=== PATIENT | male | born 1940 | race Caucasian/White ===

== ENCOUNTER 2023-07-28 12:18 | Inpatient (IN) ==
--- NOTE | 2023-07-28 12:45 | Emergency Department Note ---
Impression & Plan Generalized weakness, Acute urinary retention, Hydronephrosis, Hyperglycemia, Elevated serum creatinine, Bladder outlet obstruction ED Provider Note HISTORY OF PRESENT ILLNESS: Patient is an 83-year-old male presenting with hyperglycemia and feeling generally unwell. Patient reports that he went to acute care yesterday given his generalized weakness and polyuria. His glucose was over 300. He has been having frequent urination and feeling generally unwell and weak for the last week. He denies any chest pain or shortness of breath. Reports lower abdominal pain. Denies any nausea or vomiting or diarrhea. He used to be on metformin for his diabetes, but stopped taking all of his medications a year and a half ago. He denies any recent sick contact exposures or recent travel. Denies any fevers. Patient reports abdominal surgical history significant for cholecystectomy. ROS: as above PHYSICAL EXAM: Constitutional: Patient appears in no acute distress. HENT: Head: Normocephalic and atraumatic. Eyes: EOMI, PERRL Mouth/Throat: Mucous membranes moist. Neck: Trachea midline. Neck supple. Cardiovascular: RRR, No murmurs, rubs or gallops. Intact distal pulses. Pulmonary/Chest: No respiratory distress. Breath sounds clear and equal bilaterally. No wheezes or rales. Abdominal: Abdomen soft, no rebound or guarding. Lower abdominal tenderness to palpation. Musculoskeletal: No edema, tenderness or deformity noted. Skin: Warm and dry. No rash, erythema, pallor or cyanosis Psychiatric: Appropriate mood and affect for situation. Neurological: Alert and keenly responsive. CN II-XII grossly intact, moving all extremities equally and fully. MDM: - Vitals signs showed hypertension - History obtained via patient. Patient presents with hyperglycemia and feeling generally unwell. Patient went to acute care yesterday given his generalized weakness and polyuria. He was found of a glucose of over 300. He states he has been urinating frequently over the last week. He has also been feeling generally unwell and very weak. Denies any chest pain or shortness of breath. Reports lower abdominal pain. Denies any nausea or vomiting or diarrhea. She is not on any medications currently. Denies any fevers. Denies any recent sick contact exposures. - Chronic conditions affecting care: Diabetes - Differential diagnoses include, but are not limited to: DKA; UTI; pneumonia; viral syndrome; electrolyte abnormality - Order placed for continuous cardiac monitoring. At this time, monitor showed rate of 80 bpm with normal sinus rhythm, per my interpretation. - External medical records reviewed. [facility] [employer] and has not seen a doctor in a number of years. - EKG reviewed by myself showed normal sinus rhythm. Rate 63 bpm. QTc 433. No acute ischemic changes. - Laboratory workup interpreted by myself showed leukocytosis (WBC 14.25); hyponatremia (Na 135); hypokalemia (K 3.4); elevated creatinine (Cr 4.3 - unknown baseline); elevated anion gap (16); hyperglycemia (glucose 358); normal troponin - UA negative for infection - COVID/flu/RSV negative - VBG showed slight acidosis (pH 7.32) - CXR negative for pneumonia, per my interpretation - CT abdomen/pelvis wo contrast showed bilateral hydronephrosis and hydroureter concerning for chronic bladder outlet obstruction. - Patient urinated but had a postvoid residual of greater than 1000 mL. A Paz catheter was placed - Patient was given 1L NS and 5 units of IV insulin in ER. - Discussion was had with skin care consultant about patient's case and need for admission - Hospitalist consulted for admission - Patient admitted to [facility] Hospitalist service for further evaluation and management. ASSESSMENT AND PLAN: Diagnosis: Generalized weakness; hyperglycemia; elevated creatinine; elevated anion gap; hydroureteronephrosis; bladder outlet obstruction; acute urinary retention Plan: admit Past Med/Surg History Social History Smoking Status: Never smoker Feels Safe at Home: Yes Allergies Allergies Allergy/AdvReac Type Severity Reaction Status Date / Time Sulfa (Sulfonamide Allergy Unknown JAUNDICE Verified 07/28/23 16:08 Antibiotics) Home Meds Home Medications Medication Instructions Recorded Confirmed turmeric 400 mg capsule 400 mg PO DAILY 07/28/23 07/28/23 Results & Data (ED) Vital Signs Vital Signs - 24 hr 07/28/23 12:28 Temperature 36.5 C Temperature Source Temporal Artery Scan Pulse Rate 79 Pulse Rhythm Regular Respiratory Rate 20 Respiratory Effort / Characteristics Non-Labored Spontaneous Respiratory Depth Normal Blood Pressure 148/93 H Blood Pressure Mean 111 Pulse Oximetry 97 Oxygen Delivery Method Room Air Sepsis Recent Fever Within 48 Hours No Sepsis New/Unexplained Change in Mental Status No Sepsis Action Taken by Nursing No Action Required Laboratory Data 07/28/23 13:42 07/28/23 13:42 Lab Results 07/28/23 07/28/23 07/28/23 Range/Units 13:32 13:41 13:42 WBC 14.25 H (4.8-10.8) K/ul RBC 6.49 H (4.70-6.10) M/uL Hgb 19.5 H (14.0-18.0) g/dl Hct 54.8 H (42.0-52.0) % MCV 84.4 (80.0-100.0) fL MCH 30.0 (25.0-34.0) pg MCHC 35.6 (32.0-36.0) g/dL RDW Std Deviation 41.0 (36.4-46.3) fL RDW Coeff of Dangelo 13.7 (11.5-14.5) % Plt Count 253 (130-400) K/uL MPV 10.1 (9.4-12.4) fL Immature Gran % (Auto) 0.8 % Neut % (Auto) 71.8 % Lymph % (Auto) 15.2 % [place] % (Auto) 10.9 % Eos % (Auto) 0.8 % Baso % (Auto) 0.5 % Neut # (Auto) 10.23 H (1.40-6.50) K/uL Lymph # (Auto) 2.17 (1.20-3.40) K/uL [place] # (Auto) 1.56 H (0.11-0.59) K/uL Eos # (Auto) 0.11 (0.00-0.50) K/uL Baso # (Auto) 0.07 (0.00-0.20) K/uL Immature Gran # (Auto) 0.11 (0.01-0.20) K/uL VBG pH 7.32 L (7.36-7.41) VBG pCO2 49 (38-50) mmHg VBG pO2 30 mmHg VBG HCO3 25 mmol/L VBG O2 Saturation < 60.0 % VBG Base Excess -1.7 mEq/L Sodium 135 L (136-145) mmol/L Potassium 3.4 L (3.5-5.1) mmol/L Chloride 95 L (98-107) mmol/L Carbon Dioxide 24 (21-32) mmol/L Anion Gap 16 H (3-11) BUN 53 H (6-23) mg/dl Creatinine 4.30 H (0.6-1.4) mg/dl Est Cr Clr Drug Dosing 12.8 ml/min Est GFR ( Amer) 14.0 ml/min Est GFR (Non-Af Amer) 12.0 ml/min BUN/Creatinine Ratio 12.3 (10-20) Glucose 358 H* (70-99(Fasting)) mg/dl Calcium 9.1 (8.6-10.3) mg/dl Magnesium 2.0 (1.7-2.4) mg/dl Total Bilirubin 4.2 H (0.2-1.0) mg/dl AST 12 L (13-39) U/L ALT 16 (7-52) U/L Alkaline Phosphatase 136 H (34-104) U/L Troponin I High Sens 14.7 (0-20) pg/ml Total Protein 7.8 (6.0-8.3) gm/dl Albumin 4.5 (3.4-5.0) gm/dl Globulin 3.3 (2.5-4.0) gm/dl Albumin/Globulin Ratio 1.4 (0.9-2) Urine Color Yellow Urine Appearance Clear (Clear) Urine pH 5.5 (4.5-7.5) Ur Specific [place] 1.015 (1.000-1.030) Urine Protein Negative (Negative) Urine Glucose (UA) 2+ H (Negative) Urine Ketones Negative (Negative) Urine Blood Negative (Negative) Urine Nitrite Negative (Negative) Urine Bilirubin Negative (Negative) Urine Urobilinogen Negative (Negative) Ur Leukocyte Esterase Negative (Negative) SARS-CoV-2 (PCR) NEGATIVE (Negative) Influenza Type A (PCR) Negative (Neg) Influenza Type B (PCR) Negative (Neg) RSV (RT-PCR) Negative (Neg) Administered Medications Discontinued Medications Sodium Chloride (Nss) 1,000 mls @ 999 mls/hr IV .Q1H1M ONE Stop: 07/28/23 16:46 Last Infusion: 07/28/23 17:49 Dose: Infused Documented By: Admin: 07/28/23 16:12 Dose: 999 mls/hr Documented By: JEAN Insulin Human Regular (Novolin-R Insulin Per Unit Charge) 5 units IV NOW STA Stop: 07/28/23 15:47 Last Admin: 07/28/23 16:13 Dose: 5 units Documented By: JEAN Co-signed By: NDW Imaging Data Radiologist's Impression: Chest X-Ray 07/28/23 12:28 SINGLE VIEW CHEST CLINICAL HISTORY: Generalized weakness. FINDINGS: A PA chest radiograph is compared to study dated 01/22/2008. The heart is top normal for projection noting atherosclerotic calcification of the thoracic aorta. The pulmonary vasculature is noncongested. Chronic interstitial thickening similar to previous. Suspect a small right pleural effusion. Foci of parenchymal scarring are seen at the right lung base. There is no airspace consolidation typical for pneumonia. No pneumothorax is seen. The skeletal structures are osteopenic. The bony thorax is grossly intact. Chronic widening at the right acromioclavicular joint is similar to previous. Cholecystectomy clips are noted in the right upper quadrant. IMPRESSION: 1. Suspect a small right pleural effusion. 2. No airspace consolidation is seen typical for pneumonia. ACT 112: Negative or not required by law. Electronically signed by: Dallas Ramirez M.D. 07/28/2023 1:18 PM Abdomen/Pelvis CT 07/28/23 12:32 CT abd pelvis wo con CLINICAL HISTORY: lower abdominal pain; weakness; fever TECHNIQUE: Helical axial images of the abdomen and pelvis were obtained. Automated dose lowering techniques and/or adjustment according to patient size were utilized for this exam. This exam was performed without intravenous contrast. CT DOSE: 1391.25 mGy.cm COMPARISON: Comparison is made to pelvis radiograph 02/22/2008 FINDINGS: Lower chest: Bibasilar atelectasis versus scarring is seen. Liver: Unremarkable. No focal lesions are seen. Gallbladder and biliary tree: Patient is status post cholecystectomy. No intra- or extrahepatic biliary ductal dilation. Pancreas: Fatty replacement of the pancreas is seen. Spleen: Unremarkable. Adrenals: Unremarkable. Kidneys and ureters: Left hydronephrosis and hydroureter is seen with prominent perinephric stranding. To a lesser extent there is also right hydronephrosis and hydroureter. A cyst is in the left kidney inferior pole. Bladder: Bladder is markedly distended. Reproductive organs: Prostatomegaly is seen. Bowel: Diverticulosis is seen without evidence of diverticulitis. Patient appears status post appendectomy. There is a small hiatal hernia. Lymph nodes Retroperitoneal: Unremarkable. Pelvic: Unremarkable. Mesenteric: Unremarkable. Peritoneum: Fat stranding is seen most prominent in the left retroperitoneum and there is a small amount of fluid in the left pelvis. Vessels: Atherosclerotic calcifications are seen. Abdominal wall: A fat-containing umbilical hernia is seen. Bones: Degenerative changes in the visualized spine. IMPRESSION: 1. Bilateral hydronephrosis and hydroureter, left greater than right, is likely secondary to chronic bladder outlet obstruction. 2. Diverticulosis without diverticulitis. ACT 112: Negative or not required by law. Electronically signed by: Parvez Lopez M.D. 07/28/2023 3:17 PM Discharge Plan Visit Data Chief Complaint: Hyperglycemia Stated Complaint: HYPERGLYCEMIA; REFERRED BY DR ED Provider: Beth Williamson Discharge Problem: Generalized weakness, Acute urinary retention, Hydronephrosis, Hyperglycemia, Elevated serum creatinine, Bladder outlet obstruction Forms Stand Alone Forms: [facility] [employer] Prescriptions Prescriptions: No Action turmeric 400 mg Capsule 400 mg PO DAILY Referrals Referrals: PCP,NO [Primary Care Provider] -
--- NOTE | 2023-07-28 13:19 | XRay Report ---
SINGLE VIEW CHEST CLINICAL HISTORY: Generalized weakness. FINDINGS: A PA chest radiograph is compared to study dated 01/22/2008. The heart is top normal for pro jection noting atherosclerotic calcification of the thoracic aorta. The pulmonary vasculature is nonc ongested. Chronic interstitial thickening similar to previous. Suspect a small right pleural effusion . Foci of parenchymal scarring are seen at the right lung base. There is no airspace consolidation ty pical for pneumonia. No pneumothorax is seen. The skeletal structures are osteopenic. The bony thorax is grossly intact. Chronic widening at the right acromioclavicular joint is similar to previous. Cho lecystectomy clips are noted in the right upper quadrant. IMPRESSION: 1. Suspect a small right pleural effusion. 2. No airspace consolidation is seen typical for pneumonia. ACT 112: Negative or not required by law. Electronically signed by: Dallas Ramirez M.D. 07/28/2023 1:18 PM
[2023-07-28 13:52] LABS: Appearance Urine Clear (Clear); Bilirubin Urine Negative (Negative); Blood Urine Negative (Negative); Color Urine Yellow; Glucose Urine UA 2+ (Negative); Ketones Urine Negative (Negative); Leukocyte Esterase Urine Negative (Negative); Nitrite Urine Negative (Negative); Protein Urine Negative (Negative); Specific Gravity Urine 1.015 (1.000-1.030); Urobilinogen Urine Negative (Negative); pH Urine 5.5 (4.5-7.5)
[2023-07-28 13:59] LABS: Base Excess VBG -1.7 mEq/L; HCO3 VBG 25 mmol/L; Oxygen Saturation VBG < 60.0 %; PCO2 VBG 49 mmHg (38-50); PO2 VBG 30 mmHg; pH VBG 7.32 (7.36-7.41)
[2023-07-28 14:10] LABS: Basophils # (auto) 0.07 K/uL (0.00-0.20); Basophils % (auto) 0.5 %; Eosinophils # (auto) 0.11 K/uL (0.00-0.50); Eosinophils % (auto) 0.8 %; Hematocrit (blood only) 54.8 % (42.0-52.0); Hemoglobin 19.5 g/dl (14.0-18.0); Immature Granulocytes # (auto) 0.11 K/uL (0.01-0.20); Immature Granulocytes % (auto) 0.8 %; Lymphocytes # (auto) 2.17 K/uL (1.20-3.40); Lymphocytes % (auto) 15.2 %; Mean Corpuscular Hgb Conc 35.6 g/dL (32.0-36.0); Mean Corpuscular Volume 84.4 fL (80.0-100.0); Mean Platelet Volume 10.1 fL (9.4-12.4); Monocytes # (auto) 1.56 K/uL (0.11-0.59); Monocytes % (auto) 10.9 %; Neutrophils # (auto) 10.23 K/uL (1.40-6.50); Neutrophils % (auto) 71.8 %; Platelet Count 253 K/uL (130-400); RDW Coefficient of Variation 13.7 % (11.5-14.5); Red Blood Count 6.49 M/uL (4.70-6.10); White Blood Count 14.25 K/ul (4.8-10.8)
[2023-07-28 14:27] LABS: Albumin Globulin Ratio 1.4 (0.9-2); Albumin Level 4.5 gm/dl (3.4-5.0); BUN Creatinine Ratio 12.3 (10-20); Bilirubin,Total 4.2 mg/dl (0.2-1.0); Calcium 9.1 mg/dl (8.6-10.3); Creatinine Clr Calc Pharmacy 12.8 ml/min; Globulin 3.3 gm/dl (2.5-4.0); Potassium 3.4 mmol/L (3.5-5.1); Total Protein 7.8 gm/dl (6.0-8.3)
[2023-07-28 14:37] LABS: Influenza A virus by PCR Negative (Neg); Influenza B virus by PCR Negative (Neg); RSV by PCR Negative (Neg); SARS CoV2 RNA(COVID-19) Ceph NEGATIVE (Negative)
--- NOTE | 2023-07-28 14:37 | Electrocardiogram Report ---
Test Reason : Blood Pressure : / mmHG Vent. Rate : 063 BPM Atrial Rate : 063 BPM P-R Int : 108 ms QRS Dur : 090 ms QT Int : 414 ms P-R-T Axes : 076 027 146 degrees QTc Int : 423 ms Sinus rhythm with marked sinus arrhythmia Abnormal ECG When compared with ECG of 22-JAN-2008 14:07, Non-specific change in ST segment in Lateral leads Nonspecific T wave abnormality now evident in Inferior leads Confirmed by Ronni Herrera ([id number]) on 07/28/2023 2:37:16 PM Referred By: Confirmed By:Peter Herrera
--- NOTE | 2023-07-28 15:19 | CT Scan Report ---
CT abd pelvis wo con CLINICAL HISTORY: lower abdominal pain; weakness; fever TECHNIQUE: Helical axial images of the abdomen and pelvis were obtained. Automated dose lowering tech niques and/or adjustment according to patient size were utilized for this exam. This exam was perfor med without intravenous contrast. CT DOSE: 1391.25 mGy.cm COMPARISON: Comparison is made to pelvis radiograph 02/22/2008 FINDINGS: Lower chest: Bibasilar atelectasis versus scarring is seen. Liver: Unremarkable. No focal lesions are seen. Gallbladder and biliary tree: Patient is status post cholecystectomy. No intra- or extrahepatic bilia ry ductal dilation. Pancreas: Fatty replacement of the pancreas is seen. Spleen: Unremarkable. Adrenals: Unremarkable. Kidneys and ureters: Left hydronephrosis and hydroureter is seen with prominent perinephric stranding . To a lesser extent there is also right hydronephrosis and hydroureter. A cyst is in the left kidney inferior pole. Bladder: Bladder is markedly distended. Reproductive organs: Prostatomegaly is seen. Bowel: Diverticulosis is seen without evidence of diverticulitis. Patient appears status post appende ctomy. There is a small hiatal hernia. Lymph nodes Retroperitoneal: Unremarkable. Pelvic: Unremarkable. Mesenteric: Unremarkable. Peritoneum: Fat stranding is seen most prominent in the left retroperitoneum and there is a small alexx unt of fluid in the left pelvis. Vessels: Atherosclerotic calcifications are seen. Abdominal wall: A fat-containing umbilical hernia is seen. Bones: Degenerative changes in the visualized spine. IMPRESSION: 1. Bilateral hydronephrosis and hydroureter, left greater than right, is likely secondary to chronic bladder outlet obstruction. 2. Diverticulosis without diverticulitis. ACT 112: Negative or not required by law. Electronically signed by: Parvez Lopez M.D. 07/28/2023 3:17 PM
[2023-07-28] MEDS ORDERED: SODIUM CHLORIDE 0.9% 1,000 ML IV ONE (15:46)
[2023-07-28] MEDS ORDERED: NovoLIN-R INSULIN PER UNIT CHARGE IV STA (15:46)
[2023-07-28] MEDS ORDERED: POTASSIUM CHLORIDE CRTAB 20 MEQ TABCR PO ONE ×2 (17:21→21:06)
--- NOTE | 2023-07-28 17:23 | History & Physical Report ---
Date of Service July 28, 2023 Assessment & Plan (1) Bladder outlet obstruction: Plan: Acute urinary retention Bilateral hydronephrosis and hydroureter Chronic bladder outlet obstruction H/O BPH --CT ABD:Bilateral hydronephrosis and hydroureter, left greater than right, is likely secondary to chronic bladder outlet obstruction. Diverticulosis without diverticulitis. -- Paz catheter placed in ED Bladder scan as needed Urology consulted Started on Flomax Acute kidney injury Unknown baseline renal function Cr 4.3 CT showed: Left hydronephrosis and hydroureter is seen with prominent perinephric stranding. To a lesser extent there is also right hydronephrosis and hydroureter. A cyst is in the left kidney inferior pole. Continue IV fluids Nephrology consulted Avoid nephrotoxic agents as able HTN Currently not taking any medications Noncompliance Started on metoprolol, also on Flomax Will adjust medications as needed Monitor BP DM II Noncompliant with metformin Likely uncontrolled HbA1c pending Started on insulin Glycemic pharmacist consulted unit educator consulted Hypokalemia Replete electrolytes as needed Monitor Constipation Started on bowel regimen Encouraged to ambulate Alcohol use disorder Monitor for withdrawal Continue thiamine, folic acid CAD/ SP stent HLP Currently not taking any medications Started on aspirin, metoprolol Check lipid panel Obtain echo Generalized weakness Ambulatory dysfunction PT OT prior to discharge Fall precautions DVT Px: Heparin SQ Code Status Full Code History of Present Illness Chief Complaint: Generalized weakness, urinary retention Primary Care Provider: NO PCP Patient is an 83-year-old male with history of diabetes mellitus, hypertension, hyperlipidemia, BPH, CAD S/P stent and other medical problems presents with history of generalized weakness, increased urinary frequency, decreased urinary flow, bandlike hypogastric abdominal pain and ambulatory dysfunction with balance issues since 4 to 5 days duration. Patient is a very poor historian. No old records available for review. Patient's history is also obtained from patient's ex- at bedside. She admits to have poor appetite since Monday. His ex- noticed him to have slow response to questions. He admits to drinking alcohol on daily basis. Last known alcohol drink was about a week ago. Patient admits to being on aspirin, statin, Flomax in the past but has not been taking his medications since 1 year and has not been following with his physician. He reports having constipation last bowel movement on Monday. Denies any nausea, vomiting, chest pain, shortness of breath, dizziness, cough, fever, chills, fall, head trauma, LOC, headache, numbness, change in vision, diarrhea, dysuria, hematuria. Allergies Allergy/AdvReac Type Severity Reaction Status Date / Time Sulfa (Sulfonamide Allergy Unknown JAUNDICE Verified 07/28/23 16:08 Antibiotics) Home Medications Medication Instructions Recorded Confirmed Type turmeric 400 mg capsule 400 mg PO DAILY 07/28/23 07/28/23 History Past Med/Surg History Medical History (Updated 07/28/23 @ 19:24 by John Mijares MD) HTN (hypertension) with goal to be determined BPH (benign prostatic hyperplasia) CAD (coronary artery disease) Surgical History (Updated 07/28/23 @ 19:25 by John Mijares MD) Hip joint replacement status Hx of cholecystectomy Family History (Updated 07/28/23 @ 19:26 by John Mijares MD) Mother Hypertension Father Cancer Social History (Updated 07/28/23 @ 19:26 by John Mijares MD) Smoking Status: Never smoker Hx Alcohol Use: Yes Feels Safe at Home: Yes Review of Systems Review of Systems: All systems reviewed & are unremarkable except as noted in Subjective Physical Exam Physical Exam: Physical Exam: Vitals signs as noted above General Appearance:Moderately built and nourished, no apparent distress Head: normocephalic, Atraumatic Eyes: normal inspection, EOMI Neck: supple, Trachea midline Respiratory/Chest: Normal breath sounds, CTA, No accessory muscle use Cardiovascular: S1, S2, No murmur Abdomen/GI:Soft, mild hypogastric tender, +distended, Bowel sounds present, +Umbilical hernia Extremities/Musculoskeletal:normal inspection, Trace pedal edema Neurologic/Psych:AAOX3, grossly no focal neurological deficits Skin: normal color, warm Results & Data Results & Data Vital Signs (Past 12 Hours) Vital Signs Temp Pulse Resp BP Pulse Ox O2 Del Method 07/28/23 12:28 36.5 C 79 20 148/93 H 97 Room Air Laboratory Results Short CBC 07/28/23 Range/Units 13:42 WBC 14.25 H (4.8-10.8) K/ul Hgb 19.5 H (14.0-18.0) g/dl Hct 54.8 H (42.0-52.0) % Plt Count 253 (130-400) K/uL BMP 07/28/23 13:42 Sodium 135 L Potassium 3.4 L Chloride 95 L Carbon Dioxide 24 BUN 53 H Creatinine 4.30 H Glucose 358 H* Calcium 9.1 Liver Function 07/28/23 Range/Units 13:42 Total Bilirubin 4.2 H (0.2-1.0) mg/dl AST 12 L (13-39) U/L ALT 16 (7-52) U/L Alkaline Phosphatase 136 H (34-104) U/L Albumin 4.5 (3.4-5.0) gm/dl Urine 07/28/23 Range/Units 13:41 Urine Color Yellow Urine Appearance Clear (Clear) Urine pH 5.5 (4.5-7.5) Ur Specific [place] 1.015 (1.000-1.030) Urine Protein Negative (Negative) Urine Glucose (UA) 2+ H (Negative) Diagnostic Findings CT ABD: Bilateral hydronephrosis and hydroureter, left greater than right, is likely secondary to chronic bladder outlet obstruction. Diverticulosis without diverticulitis. CXR:Suspect a small right pleural effusion. No airspace consolidation is seen typical for pneumonia. ECG Additional Comments: EKG: Sinus rhythm with marked sinus arrhythmia. Nonspecific change in ST-T segment in lateral and inferior leads. QTc 423. Code Status & VTE Plan VTE Prophylaxis Plan VTE Prophylaxis will be ordered: Yes
[2023-07-28 18:09] LABS: Troponin I High Sensitivity 14.7 pg/ml (0-20)
[2023-07-28 19:33] LABS: Calcium 8.3 mg/dl (8.6-10.3); Creatinine Clr Calc Pharmacy 15.7 ml/min; Est GFR (African American) 17.9 ml/min; Est GFR (Non-African American) 15.5 ml/min; Potassium 3.1 mmol/L (3.5-5.1)
--- NOTE | 2023-07-28 20:53 | Communication Note ---
Date of Service: July 28, 2023 Received message from RN that patient has been confused trying to remove medical equipment, his gown and uncooperative. Likely delirium. Will obtain CT head. Restraints, Zyprexa as needed.
[2023-07-28] MEDS ORDERED: LANTUS PER UNIT CHARGE SQ SCH (21:06)
[2023-07-28] MEDS ORDERED: ONDANSETRON INJ 2 MG/ML 2 ML VIAL IV PRN (21:06)
[2023-07-28] MEDS ORDERED: PHARMACY GLYCEMIC MGMT CONSULT PRN (21:06)
[2023-07-28] MEDS ORDERED: GLUCAGON FOR INJ 1 MG VIAL SQ PRN (21:06)
[2023-07-28] MEDS ORDERED: LORazepam 1 MG TAB PO PRN ×3 (21:06)
[2023-07-28] MEDS ORDERED: CARBOHYDRATES FOR HYPOGLYCEMIA PO PRN (21:06)
[2023-07-28] MEDS ORDERED: Ativan PO Alcohol Withdrawal--Active Protocol PO PRN (21:06)
[2023-07-28] MEDS ORDERED: POLYETHYLENE (MIRALAX) 17 GM PACK PO PRN (21:06)
[2023-07-28] MEDS ORDERED: GLUCOSE 40% GEL 15 GM TUBE PO PRN (21:06)
[2023-07-28] MEDS ORDERED: NSS + 20MEQ KCL 20 MEQ/1,000 ML BAG IV SCH (21:06)
[2023-07-28] MEDS ORDERED: GLUCOSE 10 TAB/TUBE PO PRN (21:06)
[2023-07-28] MEDS ORDERED: DEXTROSE 50% 50 ML SYRINGE IV PRN (21:06)
[2023-07-28] MEDS ORDERED: ACETAMINOPHEN 325 MG TAB PO PRN (21:06)
[2023-07-28] MEDS ORDERED: TAMSULOSIN HCL 0.4 MG CAP PO ONE (21:30)
[2023-07-28] MEDS ORDERED: DOCUSATE SODIUM 100 MG CAP PO ONE (21:30)
[2023-07-28] MEDS ORDERED: POLYETHYLENE (MIRALAX) 17 GM PACK PO ONE (21:30)
--- NOTE | 2023-07-28 21:42 | CT Scan Report ---
Exam(s): CT HEAD Without Contrast EXAM: CT Head Without Intravenous Contrast CLINICAL HISTORY: Reason for exam: Confused. TECHNIQUE: Axial computed tomography images of the head/brain without intravenous contrast. CTDI is 36.18 mGy and DLP is 546.36 mGy-cm. Automated exposure control was utilized for the study. A dose lowering technique was utilized adhering to the principles of ALARA. COMPARISON: No relevant prior studies available. FINDINGS: No acute intracranial hemorrhage. No midline shift or mass effect. The territorial [place]-white matter differentiation is maintained throughout. Age-related cerebral volume loss. Periventricular and subcortical white matter hypoattenuation, consistent with chronic microangiopathy. The visualized orbits appear grossly unremarkable. The calvarium is intact. The visualized paranasal sinuses and mastoid air cells are grossly clear. IMPRESSION: No acute intracranial hemorrhage, midline shift, or mass effect. Electronically signed by: Bebeto Dudley MD 07/28/23 21:41 PM
[2023-07-28] MEDS ORDERED: AMIODARONE IV BOLUS & DRIP IV STA (22:35)
[2023-07-28] MEDS ORDERED: STAT IV Infusion **Titration per Protocol STA (22:35)
--- NOTE | 2023-07-28 22:35 | Communication Note ---
Date of Service: July 28, 2023 Overnight issues 0 P Patient noted to be in rapid A-fib. Heart rate 160s, SBP 90s. AP New onset A-fib PCU transfer IV amiodarone given borderline BP IVF bolus Cardiology consult Re: New onset A-fib 07/29, 5:15 AM Patient confused and pulling at Paz catheter as per RN. RN requesting for mitt restraints. Patient does not seem to be in alcohol withdrawal as per RN. Called patient's over the phone to give update. No prior history of A-fib as per account. Patient drinks 2-3 beers nightly but does not think patient has a problem with alcohol. Some cognitive slowing over the last few years, dementia as a possibility as it runs in patient's family as per patient .
[2023-07-28] MEDS ORDERED: AMIODARONE / D5W 150 MG/100 ML BAG IV STA (22:39)
[2023-07-28] MEDS ORDERED: 0.2 MICRON FILTER SET 1 EACH IV STA (22:40)
[2023-07-28] MEDS ORDERED: AMIODARONE / D5W 360 MG/200 ML BAG IV ONE (22:49)
[2023-07-28] MEDS: HEPARIN SOD 5,000 UNIT/0.5 ML VIAL SQ SCH (22:53)
[2023-07-28] MEDS: INSULIN ASPART PER UNIT CHARGE SC SCH (22:54)
[2023-07-28] MEDS ORDERED: NSS + 20MEQ KCL 20 MEQ/1,000 ML BAG IV ONE (22:56)
[2023-07-29] MEDS ORDERED: NSS + 20MEQ KCL 20 MEQ/1,000 ML BAG IV ONE (03:04)
[2023-07-29] MEDS ORDERED: AMIODARONE / D5W 360 MG/200 ML BAG IV SCH (04:49)
[2023-07-29 04:51] LABS: Hematocrit (blood only) 48.9 % (42.0-52.0); Hemoglobin 17.3 g/dl (14.0-18.0); Mean Corpuscular Hgb Conc 35.4 g/dL (32.0-36.0); Mean Corpuscular Volume 84.7 fL (80.0-100.0); Mean Platelet Volume 10.2 fL (9.4-12.4); Platelet Count 180 K/uL (130-400); RDW Coefficient of Variation 13.2 % (11.5-14.5); RDW Standard Deviation 40.2 fL (36.4-46.3); Red Blood Count 5.77 M/uL (4.70-6.10)
[2023-07-29 05:16] LABS: BUN Creatinine Ratio 22.4 (10-20); Calcium 8.2 mg/dl (8.6-10.3); Chol HDL Ratio 5.3 (0-5); Creatinine Clr Calc Pharmacy 34.2 ml/min; Est GFR (African American) 45.8 ml/min; Est GFR (Non-African American) 39.5 ml/min; Magnesium 1.7 mg/dl (1.7-2.4); Phosphorus 3.1 mg/dl (2.5-4.9); Potassium 3.5 mmol/L (3.5-5.1)
[2023-07-29] MEDS ORDERED: POTASSIUM CHLORIDE CRTAB 20 MEQ TABCR PO STA (05:25)
[2023-07-29] MEDS ORDERED: OLANZAPINE 2.5 MG TAB PO STA (05:30)
--- NOTE | 2023-07-29 07:19 | Nephrology Consultation ---
Date of Consultation July 29, 2023 Assessment & Plan (1) Acute renal failure: nonoliguric at least stage 2 obstructive ANSELMO w/ unknown baseline creatinine. presenting creatinine 4.5, improved to 1.6 next AM w/ conservative measures. improving renal function though w/ cardiac events ON at risk to worsen again -daily bmp -reasonable for now to continue K rich fluids -cont to avoid IV contrast -f/u cardiolog recs; amio per them and primary History of Present Illness Reason for Consultation: ANSELMO Requesting Physician: Dr Mijares Attending Physician: John Mijares MD History of Present Illness 83 y/o M whom I'm asked to see for ANSELMO was admitted last evening with acute urinary retention in the setting of chronic bladder outlet obstruction. PMH also includes diabetes mellitus, hypertension, hyperlipidemia, prostatic hypertrophy, CAD S/P stent, possible dementia, EtOH dependence (2-3 beers nightly). His presenting creatinine was 4.3. No baseline renal function labs available in G or [facility] systems. Admission imaging notable for BL hydronephrosis and hydroureter. A alicea was placed in ER with 2L UOP so far. This am creatinine is 1.6. Concern shortly after admission for delirium w/ pt pulling at lines, and w/ defiant behavior. Overnight he also went into AF w/ RVR and had amiodarone, NS and was made PCU status. HR this am in 80s and he remains on RA. The patient's remains an unreliable, marginally interactive historian when I saw him early this afternoon. He denies dypsnea, n/v, abd pain, LE edema, chest pain or palpitations. Allergies Allergy/AdvReac Type Severity Reaction Status Date / Time Sulfa (Sulfonamide Allergy Unknown JAUNDICE Verified 07/28/23 16:08 Antibiotics) Home Medications Medication Instructions Recorded Confirmed Type turmeric 400 mg capsule 400 mg PO DAILY 07/28/23 07/28/23 History Patient History Medical History DMII (diabetes mellitus, type 2) HTN (hypertension) with goal to be determined BPH (benign prostatic hyperplasia) CAD (coronary artery disease) Surgical History Hip joint replacement status Hx of cholecystectomy Family History Mother Hypertension Father Cancer Social History Smoking Status: Unknown if ever smoked Hx Alcohol Use: Yes Preferred Language: Hebrew Communication Ability: Impaired Pr Manager Required: No Feels Safe at Home: Yes Review of Systems 2 Review of Systems: All systems reviewed & are unremarkable except as noted in HPI & below (limited by cognitive/mental status) Physical Exam 2 Constitutional: well developed and well nourished Eyes: EOM intact bilaterally ENMT: Ears: no external ear abnormality Nose: no external nose abnormality Mouth: + dry oral mucous membranes Neck: no nuchal rigidity Respiratory: normal respiratory effort Auscultation: + diminished lung sounds Cardiovascular: RRR, no murmur, no edema Gastrointestinal (Abdomen): Inspection/Auscultation: normal bowel sounds P ercussion/Palpation: abdomen soft; abdomen nontender Musculoskeletal: Extremities: strength 5/5 throughout Skin: no rashes, warm and dry Neurologic: jauregui, fluent though limited speech, no tremor Psychiatric: Orientation: alert and oriented to person Results & Data Vital Signs (Past 12 Hours) Vital Signs Temp Pulse Resp BP BP Pulse Ox 07/29/23 05:31 81 21 137/86 07/29/23 05:00 26 H 07/29/23 04:30 76 18 07/29/23 04:00 78 21 07/29/23 03:30 104 H 17 07/29/23 02:30 89 21 07/29/23 02:29 97 H 21 120/80 94 07/29/23 02:00 71 16 07/29/23 01:02 88 18 108/72 07/29/23 00:30 93 H 17 07/29/23 00:01 161 H 28 H 109/83 07/29/23 00:00 162 H 28 H 07/28/23 23:30 148 H 26 H 07/28/23 23:07 147 H 07/28/23 23:01 144 H 15 07/28/23 23:01 121/86 07/28/23 23:00 164 H 15 07/28/23 22:50 160 H 14 07/28/23 22:43 169 H 17 07/28/23 22:43 109/64 07/28/23 22:40 161 H 15 07/28/23 22:30 170 H 21 07/28/23 22:24 93/67 L 07/28/23 22:24 160 H 23 07/28/23 22:24 154 H 07/28/23 22:23 36.3 C L 15 93/67 L Laboratory Results 07/29/23 04:03 07/29/23 04:03 admission UA > 2+ glucose, clear yellow 1015; else bland
[2023-07-29] MEDS: MAGNESIUM SULFATE / D5W 1 GM/100 ML BAG IV SCH ×2 (07:21→09:15)
[2023-07-29 07:23] LABS: Estimated Average Glucose 200 mg/dl; Hemoglobin A1C 8.6 % (4.5-5.6)
[2023-07-29] MEDS ORDERED: POTASSIUM CHLORIDE CRTAB 20 MEQ TABCR PO ONE (07:30)
--- NOTE | 2023-07-29 07:47 | Cardiology Consultation ---
Date of Consultation July 29, 2023 Assessment & Plan (1) Paroxysmal atrial fibrillation with RVR: (2) Acute renal failure: (3) Bladder outlet obstruction: Plan IMPRESSION: 83 year old male with remote history of coronary artery disease and hypertension presented to [facility] emergency department due to abdominal pain and generalized weakness. Found to have bilateral hydronephrosis and hydroureter with acute urinary retention and ANSELMO with presenting creatinine of 4.3. Cardiology consulted due to new onset atrial fibrillation with RVR PLAN: AFIB RVR: -AFIB RVR with rates into the 160s from 07/28 1030pm until 07/29 (1208am). Now maintained SR with rates 70-80s with frequent PACs/PVCs -Continue amiodarone gtt, will cautiously add in beta digna therapy with metoprolol tartrate 12.5 mg BID. -Patient with elevated CHADsVASC score of 4 (age 4, HTN, CAD) making him high risk for CVA in relation to PAF, however, he is at high risk for falls/bleeding due to cognitive decline and unsteady gait-- patient with possible frequent falls. At this time I am concerned that the risk of bleeding with anticoagulation will outweigh the benefit. Recommend ongoing monitoring on telemetry for recurrent PAF-- DIsucssion will need to be made with with family/caregiver regrading risks/benefits of long-term AC prior to discharge. -Manage electrolytes, K goal of 4.0 and mag goal of 2.0-- replace as needed. Potassium supplemented this am. ANSELMO: Treat underlying cause, bladder outlet obstruction/bilateral hydronephrosis. Will defer to hospitalist team. Agree with avoiding nephrotoxic agents. Appreciate nephrology recommendations. Case discussed with Dr. Arias-- further recommendations pending echocardiogram results Supervising Physician Co-Signing Physician Notes Patient was seen and examined personally. Full assessment and plan as well outlined above 83-year-old male poor historian who presented with signs and symptoms of acute bladder obstruction and acute renal insufficiency. During course of evaluation patient lapsed into atrial fibrillation with rapid response Treated with IV amiodarone with subsequent spontaneous conversion to sinus rhyt hm Patient unaware of arrhythmia or prior history of arrhythmias though extremely poor historian Exam as above confirmed by my exam as well. Currently in sinus rhythm Grade 1/6 systolic murmur Echocardiogram Borderline global hypokinesis EF 50-55% No significant valvular disease Normal left atrial size Impression: Paroxysmal/transient atrial fibrillation possibly incited by acute illness, hypokalemia. Patient converted to sinus rhythm with IV amiodarone. Blocked PACs noted on pre and post EKG Plan: Discontinue IV amiodarone. Initiate oral beta-digna at low dosing. No indications for anticoagulation at this time. Would optimize electrolytes,goal potassium greater than 4.0 Continue to treat agitation, renal dysfunction, bladder obstruction History of Present Illness Reason for Consultation: New onset AFIB RVR Requesting Physician: Melecio hamm Attending Physician: John Mijares MD History of Present Illness 83-year-old male who presented to [facility] emergency department yesterday, 07/28/2023 due to generalized weakness, urinary frequency and abdominal discomfort. Patient is a very poor historian. CT of the abdomen showed bilateral hydronephrosis and hydroureter possibly due to chronic bladder outlet obstruction. Paz catheter was placed and patient was started on Flomax. Acute kidney injury noted on lab work with a creatinine of 4.3. IV fluids were started and nephrology was consulted. Blood pressures were elevated and family admitted to patient being noncompliant with his medications. Metoprolol was started. Yesterday evening around 10:30 PM patient was found to be in atrial fibrillation with heart rates in the 140-160s (new diagnosis). Systolic blood pressures were on the softer side in the 90s. Patient was started on IV amiodarone. Overnight he had worsening confusion/delirium. He does drink alcohol--Per chart review about 2-[address] of the head showed no acute findings 07/29/2023: Tele: 07/28 @ 1030pm-- AFIB RVR 140-160s >> Converted to NSR with frequent PACs/PVCs 70-80s 07/29 at 1208am. Maintained SR with PACs/PVCs this am with rates in the 80s. EKG: SR with PACs Echo: PENDING Labs: Improving renal dysfunction (4.3>>3.5>>1.6 this am) Upon entrance into the room patient resting in the bed without acute concern, eating breakfast. Patient confused- unable to participate in providing history. Currently declines chest pain, shortness of breath, or palpitations. Overall mentions that he now fees "great". Notes that he doesn't fall "too much"-- says last fall was 2 weeks ago, unable to tell me why. Per the patient, his some lives with him. Past medical history: Coronary artery disease status post stent to unknown vessel Hypertension Hyperlipidemia Type 2 diabetes Daily alcohol use Allergies Allergy/AdvReac Type Severity Reaction Status Date / Time Sulfa (Sulfonamide Allergy Unknown JAUNDICE Verified 07/28/23 16:08 Antibiotics) Home Medications Medication Instructions Recorded Confirmed Type turmeric 400 mg capsule 400 mg PO DAILY 07/28/23 07/28/23 History Patient History Medical History DMII (diabetes mellitus, type 2) HTN (hypertension) with goal to be determined BPH (benign prostatic hyperplasia) CAD (coronary artery disease) Surgical History Hip joint replacement status Hx of cholecystectomy Family History Mother Hypertension Father Cancer Social History Smoking Status: Unknown if ever smoked Hx Alcohol Use: Yes Preferred Language: Amharic Communication Ability: Impaired Kiln Repairer Required: No Feels Safe at Home: Yes Review of Systems Review of Systems: All systems reviewed & are unremarkable except as noted in HPI & below (limited.) Physical Exam Constitutional: no acute distress Neck: normal visual inspection and trachea midline Respiratory: normal respiratory effort; no respiratory distress Auscultation: + diminished lung sounds; no rales, no rhonchi and no wheezes Cardiovascular: Rate/Rhythm: regular rate and regular rhythm Heart Sounds: normal S1, normal S2 and + murmur (+1/6 systolic murmur) Vessels: no JVD Extremities: no edema Gastrointestinal (Abdomen): Inspection/Auscultation: normal bowel sounds; abdomen not distended Percussion/Palpation: abdomen nontender Skin: no rashes, warm and dry Psychiatric: Orientation: alert, oriented to person and oriented to place Results & Data Vital Signs (Past 12 Hours) Vital Signs Temp Pulse Resp BP BP Pulse Ox 07/29/23 07:30 69 24 95 07/29/23 07:00 140/89 07/29/23 07:00 77 19 07/29/23 06:30 79 25 H 07/29/23 06:00 140/96 07/29/23 06:00 74 20 07/29/23 05:31 81 21 137/86 07/29/23 05:00 26 H 07/29/23 04:30 76 18 07/29/23 04:00 78 21 07/29/23 03:30 104 H 17 07/29/23 02:30 89 21 07/29/23 02:29 97 H 21 120/80 94 07/29/23 02:00 71 16 07/29/23 01:02 88 18 108/72 07/29/23 00:30 93 H 17 07/29/23 00:01 161 H 28 H 109/83 07/29/23 00:00 162 H 28 H 07/28/23 23:30 148 H 26 H 07/28/23 23:07 147 H 07/28/23 23:01 144 H 15 07/28/23 23:01 121/86 07/28/23 23:00 164 H 15 07/28/23 22:50 160 H 14 07/28/23 22:43 169 H 17 07/28/23 22:43 109/64 07/28/23 22:40 161 H 15 07/28/23 22:30 170 H 21 07/28/23 22:24 93/67 L 07/28/23 22:24 160 H 23 07/28/23 22:24 154 H 07/28/23 22:23 36.3 C L 15 93/67 L Laboratory Results Cardiac Enzymes 07/28/23 Range/Units 13:42 AST 12 L (13-39) U/L Troponin I High Sens 14.7 (0-20) pg/ml Lipids 07/29/23 Range/Units 04:03 Triglycerides 106 (0-150) mg/dl Cholesterol 139 (0-200) mg/dl HDL Cholesterol 26 mg/dl Cholesterol/HDL Ratio 5.3 H (0-5) CBC 07/28/23 07/29/23 Range/Units 13:42 04:03 WBC 14.25 H 8.40 (4.8-10.8) K/ul RBC 6.49 H 5.77 (4.70-6.10) M/uL Hgb 19.5 H 17.3 (14.0-18.0) g/dl Hct 54.8 H 48.9 (42.0-52.0) % Plt Count 253 180 (130-400) K/uL Neut # (Auto) 10.23 H (1.40-6.50) K/uL Lymph # (Auto) 2.17 (1.20-3.40) K/uL [place] # (Auto) 1.56 H (0.11-0.59) K/uL Eos # (Auto) 0.11 (0.00-0.50) K/uL Baso # (Auto) 0.07 (0.00-0.20) K/uL Comprehensive Metabolic Panel 07/28/23 07/28/23 07/29/23 Range/Units 13:42 18:39 04:03 Sodium 135 L 138 139 (136-145) mmol/L Potassium 3.4 L 3.1 L 3.5 (3.5-5.1) mmol/L Chloride 95 L 101 106 (98-107) mmol/L Carbon Dioxide 24 26 22 (21-32) mmol/L BUN 53 H 49 H 36 H (6-23) mg/dl Creatinine 4.30 H 3.50 H D 1.61 H D (0.6-1.4) mg/dl Glucose 358 H* 170 H 194 H (70-99(Fasting)) mg/dl Calcium 9.1 8.3 L 8.2 L (8.6-10.3) mg/dl AST 12 L (13-39) U/L ALT 16 (7-52) U/L Alkaline Phosphatase 136 H (34-104) U/L Total Protein 7.8 (6.0-8.3) gm/dl Albumin 4.5 (3.4-5.0) gm/dl Intake and Output 07/28/23 07/29/23 07/29/23 22:59 06:59 14:59 Intake Total 999 / 1299 300 / 1300 95 / 95 Output Total 1999 Balance -1000 / -700 300 / -700 95 / 95 Intake: IV 1000 / 1300 300 / 1300 95 / 95 Amiodarone / D5w 150 mg In 100 100 / 100 ml @ 600 mls/hr IV NOW STA Rx#: [id number] Amiodarone / D5w 360 mg In 200 200 / 200 ml @ 1 MG/MIN 33.333 mls/hr IV ONE ONE Rx#:[id number] Magnesium Sulfate / D5w 1 gm In 95 / 95 100 ml @ 50 mls/hr IV Q2H [place] Rx#:[id number] Sodium Chloride 0.9% 1,000 ml @ 1000 / 1000 999 mls/hr IV .Q1H1M ONE Rx#: [id number] Output: Urine Amount (Catheter) 1999 Paz/Indwelling 1999 (2) Acute renal failure Acute renal failure type: unspecified Qualified Code(s): N17.9 - Acute kidney failure, unspecified
[2023-07-29] MEDS ORDERED: METOPROLOL SUCC 25MG EXT REL TAB PO SCH (09:00)
--- NOTE | 2023-07-29 09:09 | Hospitalist Progress Note ---
Date of Service July 29, 2023 Assessment & Plan (1) Acute metabolic encephalopathy: Plan: Confusion appears to be resolving with treatment. Likely multifactorial including alcohol use with withdrawal in elderly patient with ?dementia, acute renal failure and dehydration. Atrial fibrillation with RVR also possibly contributing. (2) Alcohol abuse with withdrawal: Plan: Reports persistent alcohol use as above. Ativan PRN. Cont thiamine and folic acid. Combative behavior overnight requiring Zyprexa. Possible contribution from underlying cognitive inhibition per records. (3) Acute renal failure: Plan: Likely related to a combination of post obstructive uropathy 2/2 BPH and AUR with dehydration in the setting of alcohol abuse. (4) Acute urinary retention: Plan: Bilateral hydronephrosis on CT and acute urinary retention likely contributing to ANSELMO. Creatinine (and confusion) improved with alicea in place. Urine is dark in color and appears concentrated consistent with dehydration. Cont Flomax for BPH. (5) Paroxysmal atrial fibrillation with RVR: Plan: Rapid ventricular response overnight. Amio drip initiated and also oral metoprolol. Cont management per cardiology recommendations. (6) CAD (coronary artery disease): Plan: chronic, appears stable. h/o stent placement. Denies chest pain or SOB. HS trop is negative. (7) DMII (diabetes mellitus, type 2): Plan: chronic, uncontrolled. Noncompliant with medication. A1C is 8.6. DVT proph: heparin Full Code Dispo-to telemetry. Pending mental status improvement and PT/OT recommendations. I spent a total [id number] coordinating, documenting, and providing care for this patient excluding time spent in the performance of separately billed services Tiana Rios DO [facility] Admission and Anticipated Discharge Date Admission Date: July 28, 2023 Subjective 83 yo alcoholic man with dementia presented with confusion. This morning he is oriented but it is difficult to obtain details beyond this. He cannot tell me when his last drink was but knows he drinks "three a day." He reports feeling badly for the past 5 days, but cannot elaborate further on this. He is back in sinus rhythm this morning after amiodarone drip. He was also placed on metoprolol. Physical Exam Physical Exam: CONSTITUTIONAL: WNWD, vitals as above, generally well-appearing EYES: EOMI bilaterally, PERRL, normal conjuctivae, no scleral icterus, no fundoscopic abnormality ENT: external ear and nose normal, oropharynx clear, no TM abnormality, no maxillary or ethmoid sinus tenderness NECK: trachea midline, no lymphadenopathy, normal thyroid RESPIRATORY: clear to auscultation bilaterally, no crackles, rales or wheezes, normal respiratory effort CARDIOVASCULAR: regular rate and rhythm, S1 and 2 heard without murmurs, gallops or rubs, no JVD, no peripheral edema, no carotid bruits CHEST: inspection of chest was normal (+pacemaker, +port) GASTROINTESTINAL: normal bowel sounds, soft, nontender, no hepatomegaly, no guarding MUSCULOSKELETAL: strength 5/5 throughout, head is normocephalic and atraumatic, neck supple, normal palpation of chest wall without tenderness SKIN: warm and dry, no rashes NEUROLOGIC: patellar DTRs 2+ bilat. PERRL, EOMI, no facial palsy, no dysarthria. Touch, pain and proprioception normal. CN 2-12 grossly intact, no sensory deficit, normal cognition, normal speech, no tremor PSYCHIATRIC: alert cooperative and oriented to person, place and time. Euthymic mood, makes good eye contact, language grossly intact, recent and remote memory grossly intact. LYMPHATIC: no LAD Results & Data Results & Data Vital Signs (Past 12 Hours) Vital Signs Temp Pulse Resp BP BP Pulse Ox 07/29/23 08:07 73 07/29/23 07:30 69 24 95 07/29/23 07:00 140/89 07/29/23 07:00 77 19 07/29/23 06:30 79 25 H 07/29/23 06:00 140/96 07/29/23 06:00 74 20 07/29/23 05:31 81 21 137/86 07/29/23 05:00 26 H 07/29/23 04:30 76 18 07/29/23 04:00 78 21 07/29/23 03:30 104 H 17 07/29/23 02:30 89 21 07/29/23 02:29 97 H 21 120/80 94 07/29/23 02:00 71 16 07/29/23 01:02 88 18 108/72 07/29/23 00:30 93 H 17 07/29/23 00:01 161 H 28 H 109/83 07/29/23 00:00 162 H 28 H 12/01/23 23:30 148 H 26 H 07/28/23 23:07 147 H 07/28/23 23:01 144 H 15 07/28/23 23:01 121/86 07/28/23 23:00 164 H 15 07/28/23 22:50 160 H 14 07/28/23 22:43 169 H 17 07/28/23 22:43 109/64 07/28/23 22:40 161 H 15 07/28/23 22:30 170 H 21 07/28/23 22:24 93/67 L 07/28/23 22:24 160 H 23 07/28/23 22:24 154 H 07/28/23 22:23 36.3 C L 15 93/67 L Laboratory Results Short CBC 07/28/23 07/29/23 Range/Units 13:42 04:03 WBC 14.25 H 8.40 (4.8-10.8) K/ul Hgb 19.5 H 17.3 (14.0-18.0) g/dl Hct 54.8 H 48.9 (42.0-52.0) % Plt Count 253 180 (130-400) K/uL [facility] 07/28/23 07/28/23 07/29/23 13:42 18:39 04:03 Sodium 135 L 138 139 Potassium 3.4 L 3.1 L 3.5 Chloride 95 L 101 106 Carbon Dioxide 24 26 22 BUN 53 H 49 H 36 H Creatinine 4.30 H 3.50 H D 1.61 H D Glucose 358 H* 170 H 194 H Calcium 9.1 8.3 L 8.2 L Liver Function 07/28/23 Range/Units 13:42 Total Bilirubin 4.2 H (0.2-1.0) mg/dl AST 12 L (13-39) U/L ALT 16 (7-52) U/L Alkaline Phosphatase 136 H (34-104) U/L Albumin 4.5 (3.4-5.0) gm/dl Urine 07/28/23 Range/Units 13:41 Urine Color Yellow Urine Appearance Clear (Clear) Urine pH 5.5 (4.5-7.5) Ur Specific [place] 1.015 (1.000-1.030) Urine Protein Negative (Negative) Urine Glucose (UA) 2+ H (Negative) Diagnostic Findings Head CT 12/01/23 20:52 Exam(s): CT HEAD Without Contrast EXAM: CT Head Without Intravenous Contrast CLINICAL HISTORY: Reason for exam: Confused. TECHNIQUE: Axial computed tomography images of the head/brain without intravenous contrast. CTDI is 36.18 mGy and DLP is 546.36 mGy-cm. Automated exposure control was utilized for the study. A dose lowering technique was utilized adhering to the principles of ALARA. COMPARISON: No relevant prior studies available. FINDINGS: No acute intracranial hemorrhage. No midline shift or mass effect. The territorial [place]-white matter differentiation is maintained throughout. Age-related cerebral volume loss. Periventricular and subcortical white matter hypoattenuation, consistent with chronic microangiopathy. The visualized orbits appear grossly unremarkable. The calvarium is intact. The visualized paranasal sinuses and mastoid air cells are grossly clear. IMPRESSION: No acute intracranial hemorrhage, midline shift, or mass effect. Electronically signed by: Bebeto Dudley MD 07/28/23 21:41 PM Medications Administered Current Inpatient Medications Acetaminophen (Acetaminophen 325 Mg Tab) 650 mg PO Q4H PRN PRN Reason: pain/fever Stop: 08/27/23 21:05 Aspirin (Aspirin 81 Mg Ectab) 81 mg PO DAILY [place] Stop: 08/28/23 08:59 Dextrose (Dextrose 50% 50 Ml Syringe) 25 - 50 ml IV UD PRN; Protocol PRN Reason: Hypoglycemia Protocol Stop: 08/27/23 21:05 Docusate Sodium (Docusate Sodium 100 Mg Cap) 100 mg PO BID [place] Stop: 08/28/23 08:59 Folic Acid (Folic Acid 400 Mcg Tab) 400 mcg PO QAM [place] Stop: 08/28/23 08:59 Glucagon (Glucagon For Inj 1 Mg Vial) 1 mg SQ UD PRN; Protocol PRN Reason: Hypoglycemia Protocol Stop: 08/27/23 21:05 Glucose (Glucose 10 Tab/Tube) 4 - 8 tab PO UD PRN; Protocol PRN Reason: Hypoglycemia Treatment Stop: 08/27/23 21:05 Glucose (Glucose 40% Gel 15 Gm Tube) 15 - 30 gm PO UD PRN; Protocol PRN Reason: Hypoglycemia Protocol Stop: 08/27/23 21:05 Heparin Sodium (Porcine) (Heparin Sod 5,000 Unit/0.5 Ml Vial) 5,000 units SQ Q8 [place] Stop: 08/27/23 21:59 Last Admin: 07/28/23 22:53 Dose: 5,000 units Amiodarone HCl/Dextrose (Nexterone / D5w) 360 mg in 200 mls @ 16.667 mls/hr IV .Q12H [facility] Stop: 08/28/23 04:48 Last Admin: 07/29/23 05:52 Dose: 0.5 mg/min, 16.7 mls/hr Potassium Chloride/Sodium Chloride (Normal Saline W/20 Meq Kcl) 20 meq in 1,000 mls @ 150 mls/hr IV .Q6H40M ONE; Protocol Stop: 07/29/23 09:43 Magnesium Sulfate/Dextrose (Magnesium Sulfate / D5w) 1 gm in 100 mls @ 50 mls/hr IV Q2H [place] Stop: 07/29/23 09:59 Last Admin: 07/29/23 07:21 Dose: 50 mls/hr Potassium Chloride/Sodium Chloride (Normal Saline W/20 Meq Kcl) 20 meq in 1,000 mls @ 100 mls/hr IV .Q10H [facility]; Protocol Stop: 07/30/23 09:59 Insulin Aspart (Insulin Aspart Per Unit Charge) 0 units SC ACHS [facility] Stop: 08/27/23 21:05 Last Admin: 07/28/23 22:54 Dose: 1 units Insulin Glargine (Lantus Per Unit Charge) 10 units SQ BID [facility] Stop: 08/27/23 21:05 Metoprolol Succinate (Metoprolol Succ 25mg Ext Rel Tab) 25 mg PO QAM [facility] Stop: 08/28/23 08:59 Last Admin: 07/29/23 09:00 Dose: Not Given Miscellaneous (Carbohydrates For Hypoglycemia ) 15 - 30 gm PO UD PRN PRN Reason: Hypoglycemia Protocol Stop: 08/27/23 21:05 Miscellaneous Information (Pharmacy Glycemic Mgmt Consult) 1 each N/A UD PRN PRN Reason: Consult Stop: 08/27/23 21:05 Olanzapine (Olanzapine 10 Mg/2.1 Ml Sdv) 2.5 mg IM Q6H PRN PRN Reason: Agitation Stop: 08/27/23 20:44 Ondansetron HCl (Ondansetron Inj 2 Mg/Ml 2 Ml Vial) 4 mg IV Q6H PRN PRN Reason: Nausea Stop: 08/27/23 21:05 Polyethylene Glycol (Polyethylene (Miralax) 17 Gm Pack) 17 gm PO DAILY PRN PRN Reason: Constipation Stop: 08/27/23 21:05 Polyethylene Glycol (Polyethylene (Miralax) 17 Gm Pack) 17 gm PO DAILY [place] Stop: 08/28/23 08:59 Tamsulosin HCl (Tamsulosin Hcl 0.4 Mg Cap) 0.4 mg PO HS [place] Stop: 08/28/23 20:59 Thiamine HCl (Thiamine Hcl 100 Mg Tab) 100 mg PO QAM [place] Stop: 08/28/23 08:59 (3) Acute renal failure Acute renal failure type: unspecified Qualified Code(s): N17.9 - Acute kidney failure, unspecified
[2023-07-29] MEDS: DOCUSATE SODIUM 100 MG CAP PO SCH ×2 (09:11→22:20)
[2023-07-29] MEDS: THIAMINE HCL 100 MG TAB PO SCH (09:11)
[2023-07-29] MEDS: FOLIC ACID 400 MCG TAB PO SCH (09:11)
[2023-07-29] MEDS: ASPIRIN 81 MG ECTAB PO SCH (09:11)
--- NOTE | 2023-07-29 09:27 | Urology Consultation ---
Date of Consultation July 29, 2023 Assessment & Plan (1) BPH (benign prostatic hyperplasia): (2) Hydronephrosis: (3) Acute urinary retention: (4) Acute renal failure: Plan 83-year-old male admitted to hospital with urinary retention, bilateral hydroureteronephrosis and ANSELMO. Paz catheter was placed. Suspect patient has bladder outlet obstruction which led to distention and hydronephrosis with ANSELMO. Agree with Paz catheter decompression. Do not remove Paz catheter. Patient will need to be discharged home with Paz catheter. Trend labs. Monitor for postobstructive diuresis Urology has sent a message to schedule follow-up for possible void trial in to discuss bladder outlet obstruction management Recommend initiating patient on Flomax 0.4 mg daily and sending him home on this Urology to sign off History of Present Illness Attending Physician: Tiana Rios DO History of Present Illness 83-year-old male admitted on 07/28/2023 for urinary retention with bilateral hydronephrosis and an ANSELMO. Initially had a leukocytosis of 14.25 which is down trended to 8.4. Creatinine was originally 3.5 and is down trended to 1.61 after Paz catheter placement. A urinalysis was negative. Independently reviewed a CT scan of the abdomen pelvis which shows bilateral hydroureteronephrosis with some perinephric left standing and a significantly distended bladder. Unable to get any quality history as patient is a very poor historian and no family members are at the bedside. Allergies Allergy/AdvReac Type Severity Reaction Status Date / Time Sulfa (Sulfonamide Allergy Unknown JAUNDICE Verified 07/28/23 16:08 Antibiotics) Home Medications Medication Instructions Recorded Confirmed Type turmeric 400 mg capsule 400 mg PO DAILY 07/28/23 07/28/23 History Patient History Medical History (Updated 07/29/23 @ 09:09 by Tiana Rios DO) DMII (diabetes mellitus, type 2) HTN (hypertension) with goal to be determined BPH (benign prostatic hyperplasia) CAD (coronary artery disease) Surgical History (Updated 07/28/23 @ 19:25 by John Mijares MD) Hip joint replacement status Hx of cholecystectomy Family History (Updated 07/28/23 @ 19:26 by John Mijares MD) Mother Hypertension Father Cancer Social History (Updated 07/28/23 @ 19:26 by John Mijares MD) Smoking Status: Never smoker Hx Alcohol Use: Yes Feels Safe at Home: Yes Review of Systems Review of Systems: 14 point review of systems negative outs abhijit of what is listed above in HPI Physical Exam Physical Exam: General: Alert and oriented, no acute distress HEENT: Normocephalic, mucous membranes moist Pulmonary: Nonlabored respirations Abdomen: Nondistended : Paz draining clear urine Extremities: Moves all 4 spontaneously Neuro: No gross deficits Skin: Warm, dry, no rashes noted Results & Data Vital Signs (Past 12 Hours) Vital Signs Temp Pulse Resp BP BP Pulse Ox 07/29/23 08:07 73 07/29/23 07:30 69 24 95 07/29/23 07:00 140/89 07/29/23 07:00 77 19 07/29/23 06:30 79 25 H 07/29/23 06:00 140/96 07/29/23 06:00 74 20 07/29/23 05:31 81 21 137/86 07/29/23 05:00 26 H 07/29/23 04:30 76 18 07/29/23 04:00 78 21 07/29/23 03:30 104 H 17 07/29/23 02:30 89 21 07/29/23 02:29 97 H 21 120/80 94 07/29/23 02:00 71 16 07/29/23 01:02 88 18 108/72 07/29/23 00:30 93 H 17 07/29/23 00:01 161 H 28 H 109/83 07/29/23 00:00 162 H 28 H 07/28/23 23:30 148 H 26 H 07/28/23 23:07 147 H 07/28/23 23:01 144 H 15 07/28/23 23:01 121/86 07/28/23 23:00 164 H 15 07/28/23 22:50 160 H 14 07/28/23 22:43 169 H 17 07/28/23 22:43 109/64 07/28/23 22:40 161 H 15 07/28/23 22:30 170 H 21 07/28/23 22:24 93/67 L 07/28/23 22:24 160 H 23 07/28/23 22:24 154 H 12/01/23 22:23 36.3 C L 15 93/67 L PG Care Time/CCT Total # of Minutes Spent Total Time Spent with Patient: Total time spent is greater than 50% in coordination of care (as documented) at patient's floor/unit and/or counseling patient: Coding Level of Care Code 56642 INT INP/OBS CARE 2MIN Diagnoses BPH (benign prostatic hyperplasia) N40.0 Hydronephrosis N13.30 Acute urinary retention R33.8 Acute renal failure, unspecified acute renal failure type N17.9 Acute renal failure type: unspecified (4) Acute renal failure Acute renal failure type: unspecified Qualified Code(s): N17.9 - Acute kidney failure, unspecified
[2023-07-29] MEDS: HEPARIN SOD 5,000 UNIT/0.5 ML VIAL SQ SCH ×3 (09:28→21:21)
[2023-07-29] MEDS ORDERED: NSS + 20MEQ KCL 20 MEQ/1,000 ML BAG IV SCH (10:00)
[2023-07-29] MEDS: LANTUS PER UNIT CHARGE SQ SCH ×2 (10:51→21:21)
[2023-07-29] MEDS: INSULIN ASPART PER UNIT CHARGE SC SCH ×4 (10:51→21:12)
[2023-07-29] MEDS: POLYETHYLENE (MIRALAX) 17 GM PACK PO SCH (10:56)
[2023-07-29] MEDS: METOPROLOL TARTRATE 25 MG TAB PO SCH ×3 (11:39→22:20)
--- NOTE | 2023-07-29 11:57 | Electrocardiogram Report ---
Test Reason : Blood Pressure : / mmHG Vent. Rate : 152 BPM Atrial Rate : 000 BPM P-R Int : 000 ms QRS Dur : 086 ms QT Int : 270 ms P-R-T Axes : 000 020 235 degrees QTc Int : 429 ms Atrial fibrillation with rapid ventricular response with premature ventricular or aberrantly conducte d complexes Nonspecific ST and T wave abnormality Abnormal ECG When compared with ECG of 28-JUL-2023 13:31, Atrial fibrillation has replaced Sinus rhythm Vent. rate has increased BY [address] now depressed in Inferior leads T wave inversion now evident in Inferior leads Confirmed by Jose Benítez ([id number]) on 07/29/2023 11:56:58 AM Referred By: REFERRED SELF Confirmed By:Jose Benítez
--- NOTE | 2023-07-29 11:57 | Electrocardiogram Report ---
Test Reason : Blood Pressure : / mmHG Vent. Rate : 145 BPM Atrial Rate : 000 BPM P-R Int : 000 ms QRS Dur : 088 ms QT Int : 322 ms P-R-T Axes : 000 022 249 degrees QTc Int : 500 ms Atrial fibrillation with rapid ventricular response with premature ventricular or aberrantly conducte d complexes Abnormal ECG When compared with ECG of 28-JUL-2023 22:27, (unconfirmed) No significant change was found Confirmed by Jose Benítez ([id number]) on 07/29/2023 11:57:12 AM Referred By: REFERRED SELF Confirmed By:Jose Benítez
--- NOTE | 2023-07-29 12:03 | Electrocardiogram Report ---
Test Reason : Blood Pressure : / mmHG Vent. Rate : 070 BPM Atrial Rate : 077 BPM P-R Int : 120 ms QRS Dur : 084 ms QT Int : 422 ms P-R-T Axes : -12 013 144 degrees QTc Int : 455 ms Sinus rhythm with Blocked Premature atrial complexes Nonspecific ST and T wave abnormality Abnormal ECG When compared with ECG of 28-JUL-2023 22:29, (unconfirmed) Sinus rhythm has replaced Atrial fibrillation Vent. rate has decreased BY [address] no longer depressed in Inferior leads T wave amplitude has decreased in Anterior leads Confirmed by Jose Benítez ([id number]) on 07/29/2023 12:02:37 PM Referred By: REFERRED SELF Confirmed By:Jose Benítez
--- NOTE | 2023-07-29 14:01 | Pharmacy Report ---
Pharmacy Glycemic Short Note 2 - Date of Service July 29, 2023 - Glycemic Short BSG Results (Last 24 hours): 07/28/23 07/28/23 07/28/23 13:42 18:39 22:42 Glucose 358 H* 170 H POC Glucose 181 H 07/29/23 07/29/23 07/29/23 04:03 08:43 11:34 Glucose 194 H POC Glucose 205 H 244 H OUTPATIENT ANTIDIABETIC REGIMEN: * reported non-compliance w/ metformin HbA1c: 8.6% (07/29/23) ASSESSMENT: * DANGELO is an 83 year old male who presented to ED on 07/28/23 w/ feelings of general unwellness/weakness and polyuria * Found to have BSG of 358 mg/dL - responded well to IV insulin bolus. Patient also w/ suspected bladder outlet obstruction. * Hyperglycemic today in 200s. Will conservatively increase insulin regimen today and add overnight checks tonight. * Diet ordered. IV fluids (NSS + 20 KCl @100 mL/hr) infusing currently. PLAN FOR INPATIENT GLYCEMIC CONTROL: * Basal insulin * Lantus 10 units SQ BID * Bolus insulin * NovoLog per scale ACHS or Q6hrs while NPO * Goal Range: Low 110 mg/dL - High 140 mg/dL * Correction Factor: 30 mg/dL/unit * Nutritional / Prandial insulin per carb ratio of 1 unit per 10 grams CHO consumed
[2023-07-29] MEDS: TAMSULOSIN HCL 0.4 MG CAP PO SCH (21:20)
[2023-07-30] MEDS: INSULIN ASPART PER UNIT CHARGE SC SCH ×6 (01:00→20:21)
[2023-07-30 06:23] LABS: Hematocrit (blood only) 43.7 % (42.0-52.0); Hemoglobin 14.9 g/dl (14.0-18.0); Mean Corpuscular Hemoglobin 29.8 pg (25.0-34.0); Mean Corpuscular Hgb Conc 34.1 g/dL (32.0-36.0); Mean Corpuscular Volume 87.4 fL (80.0-100.0); Mean Platelet Volume 10.6 fL (9.4-12.4); Platelet Count 160 K/uL (130-400); RDW Coefficient of Variation 13.4 % (11.5-14.5); RDW Standard Deviation 42.5 fL (36.4-46.3); White Blood Count 6.33 K/ul (4.8-10.8)
[2023-07-30] MEDS: HEPARIN SOD 5,000 UNIT/0.5 ML VIAL SQ SCH ×3 (06:28→20:57)
[2023-07-30 06:44] LABS: BUN Creatinine Ratio 19.4 (10-20); Creatinine Clr Calc Pharmacy 56.2 ml/min; Est GFR (African American) 83.5 ml/min; Potassium 4.4 mmol/L (3.5-5.1)
[2023-07-30] MEDS: FOLIC ACID 400 MCG TAB PO SCH (09:16)
[2023-07-30] MEDS: METOPROLOL TARTRATE 25 MG TAB PO SCH (09:16)
[2023-07-30] MEDS: THIAMINE HCL 100 MG TAB PO SCH (09:16)
[2023-07-30] MEDS: DOCUSATE SODIUM 100 MG CAP PO SCH ×2 (09:16→20:58)
[2023-07-30] MEDS: ASPIRIN 81 MG ECTAB PO SCH (09:16)
--- NOTE | 2023-07-30 09:24 | Hospitalist Progress Note ---
Date of Service July 30, 2023 Assessment & Plan (1) Acute metabolic encephalopathy: Plan: Delirium still present. Not combative at this time. Likely multifactorial including hospitalization, alcohol use with withdrawal in elderly patient with ?dementia, acute renal failure (resolved) and dehydration. Atrial fibrillation with RVR also possibly contributing-converted to sinus. (2) Alcohol abuse with withdrawal: Plan: Reports persistent alcohol use as above. Ativan PRN. Cont thiamine and folic acid. Combative behavior overnight requiring Zyprexa. Possible contribution from underlying cognitive inhibition per records. This has not reappeared but he remains on a 1:1 (3) Acute renal failure: Plan: Resolved. Likely related to a combination of post obstructive uropathy 2/2 BPH and AUR with dehydration in the setting of alcohol abuse. (4) Acute urinary retention: Plan: Bilateral hydronephrosis on CT and acute urinary retention likely contributing to ANSELMO. Creatinine (and confusion) improved with alicea in place. Urine is dark in color and appears concentrated consistent with dehydration. Cont Flomax for BPH. TOV in one week. (5) Paroxysmal atrial fibrillation with RVR: Plan: Initially presented with rapid ventricular response. Amio drip initiated and also oral metoprolol. Metoprolol stopped 2/2 lower heart rates and intermittent blocked PACs. Amio also stopped and he remains in sinus rhythm. (6) CAD (coronary artery disease): Plan: chronic, appears stable. h/o stent placement. Denies chest pain or SOB. HS trop is negative. (7) DMII (diabetes mellitus, type 2): Plan: chronic, uncontrolled. Noncompliant with medication. A1C is 8.6. DVT proph: heparin Full Code Dispo-cont telemetry. Pending mental status improvement and PT/OT recommendations. Tiana Rios DO [facility] Admission and Anticipated Discharge Date Admission Date: July 28, 2023 Subjective 83 yo alcoholic man with dementia presented with confusion. Today he is confused, exhibiting delirium but without signs of ETOH withdrawal. He is oriented to person only saying that he is at [facility] and the year is . Denies pain, SOB or other issues. Tolerating PO. One to one nurse in the room Physical Exam Physical Exam: CONSTITUTIONAL: WNWD, vitals as above, generally well-appearing, NAD EYES: normal conjunctivae, no scleral icterus ENT: external ear and nose normal, MMM NECK: trachea midline RESPIRATORY: clear to auscultation bilaterally, no crackles, rales or wheezes, normal respiratory effort CARDIOVASCULAR: regular rate and rhythm, S1 and 2 heard without murmurs, gallops or rubs, no JVD, no peripheral edema CHEST: inspection of chest was normal GASTROINTESTINAL:soft, nontender, Nd, no guarding MUSCULOSKELETAL: strength 5/5 throughout, head is normocephalic and atraumatic, neck supple, normal palpation of chest wall without tenderness SKIN: warm and dry NEUROLOGIC: CN 2-12 grossly intact, no sensory deficit, normal cognition, normal speech, no tremor PSYCHIATRIC: alert cooperative but disoriented. Results & Data Results & Data Vital Signs (Past 12 Hours) Vital Signs Temp Pulse Resp BP BP Pulse Ox O2 Del Method 07/30/23 08:00 36.6 C 74 20 111/62 92 Room Air 07/30/23 02:59 36.7 C 60 18 112/57 L 94 Room Air 07/29/23 22:58 36.4 C L 62 19 136/73 95 Room Air Laboratory Results Short CBC 07/30/23 Range/Units 05:20 WBC 6.33 (4.8-10.8) K/ul Hgb 14.9 (14.0-18.0) g/dl Hct 43.7 (42.0-52.0) % Plt Count 160 (130-400) K/uL BMP 07/30/23 05:20 Sodium 141 Potassium 4.4 D Chloride 110 H Carbon Dioxide 28 BUN 19 Creatinine 0.98 D Glucose 81 Calcium 8.0 L Medications Administered Current Inpatient Medications Acetaminophen (Acetaminophen 325 Mg Tab) 650 mg PO Q4H PRN PRN Reason: pain/fever Stop: 08/27/23 21:05 Aspirin (Aspirin 81 Mg Ectab) 81 mg PO DAILY [place] Stop: 08/28/23 08:59 Last Admin: 07/30/23 09:16 Dose: 81 mg Dextrose (Dextrose 50% 50 Ml Syringe) 25 - 50 ml IV UD PRN; Protocol PRN Reason: Hypoglycemia Protocol Stop: 08/27/23 21:05 Docusate Sodium (Docusate Sodium 100 Mg Cap) 100 mg PO BID [place] Stop: 08/28/23 08:59 Last Admin: 07/30/23 09:16 Dose: 100 mg Folic Acid (Folic Acid 400 Mcg Tab) 400 mcg PO QAM [place] Stop: 08/28/23 08:59 Last Admin: 07/30/23 09:16 Dose: 400 mcg Glucagon (Glucagon For Inj 1 Mg Vial) 1 mg SQ UD PRN; Protocol PRN Reason: Hypoglycemia Protocol Stop: 08/27/23 21:05 Glucose (Glucose 10 Tab/Tube) 4 - 8 tab PO UD PRN; Protocol PRN Reason: Hypoglycemia Treatment Stop: 08/27/23 21:05 Glucose (Glucose 40% Gel 15 Gm Tube) 15 - 30 gm PO UD PRN; Protocol PRN Reason: Hypoglycemia Protocol Stop: 08/27/23 21:05 Heparin Sodium (Porcine) (Heparin Sod 5,000 Unit/0.5 Ml Vial) 5,000 units SQ Q8 [place] Stop: 08/27/23 21:59 Last Admin: 07/30/23 06:28 Dose: 5,000 units Insulin Aspart (Insulin Aspart Per Unit Charge) 0 units SC ACHS [place] Stop: 08/27/23 21:05 Last Admin: 07/30/23 08:15 Dose: Not Given Metoprolol Tartrate (Metoprolol Tartrate 25 Mg Tab) 12.5 mg PO BID [place] Stop: 08/28/23 09:29 Last Admin: 07/30/23 09:16 Dose: 12.5 mg Miscellaneous (Carbohydrates For Hypoglycemia ) 15 - 30 gm PO UD PRN PRN Reason: Hypoglycemia Protocol Stop: 08/27/23 21:05 Miscellaneous Information (Pharmacy Glycemic Mgmt Consult) 1 each N/A UD PRN PRN Reason: Consult Stop: 08/27/23 21:05 Olanzapine (Olanzapine 10 Mg/2.1 Ml Sdv) 2.5 mg IM Q6H PRN PRN Reason: Agitation Stop: 08/27/23 20:44 Ondansetron HCl (Ondansetron Inj 2 Mg/Ml 2 Ml Vial) 4 mg IV Q6H PRN PRN Reason: Nausea Stop: 08/27/23 21:05 Polyethylene Glycol (Polyethylene (Miralax) 17 Gm Pack) 17 gm PO DAILY PRN PRN Reason: Constipation Stop: 08/27/23 21:05 Polyethylene Glycol (Polyethylene (Miralax) 17 Gm Pack) 17 gm PO DAILY [place] Stop: 08/28/23 08:59 Last Admin: 07/29/23 10:56 Dose: Not Given Tamsulosin HCl (Tamsulosin Hcl 0.4 Mg Cap) 0.4 mg PO [facility] Stop: 08/28/23 20:59 Last Admin: 07/29/23 21:20 Dose: 0.4 mg Thiamine HCl (Thiamine Hcl 100 Mg Tab) [facility] [place] Stop: 08/28/23 08:59 Last Admin: 07/30/23 09:16 Dose: 100 mg (3) Acute renal failure Acute renal failure type: unspecified Qualified Code(s): N17.9 - Acute kidney failure, unspecified
[2023-07-30] MEDS: POLYETHYLENE (MIRALAX) 17 GM PACK PO SCH (09:43)
--- NOTE | 2023-07-30 10:29 | Nephrology Progress Note ---
Date of Service July 30, 2023 Assessment & Plan (1) Acute renal failure: Plan: resolved/resolving nonoliguric at least stage 3 obstructive ANSELMO w/ unknown baseline creatinine but likely at least baseline of 1. presenting creatinine 4.5, improved to 1.6 next AM w/ conservative measures. improving renal function though w/ cardiac events ON at risk to worsen again -daily bmp while in house -no indication for further IVF Will sign off NEPHRO D/C RECS -Given severity of ANSELMO, at least one OP f/u appt w/ nephro is recommended. Recommend BMP w/in a week of d/c at PCP appt and BMP, UACM, ACR to be ordered by neph RN and obtained 2-3 days before f/u hospital d/c appt w/ me in [facility] Needs to avoid all NSAIDS in excess of 81 mg daily ASA if indicated; up to 2 gm tylenol max daily. Pt w/ hx of EtOH abuse, ? dementia, not following > 1 year w/ PCP >> consider OP case mgt or other strategies to encourage OP f/u of chronic medical issues and to lower risk of readmission >> pt likely to need urology, nephro, +/- cardiology f/u not to mention PCP Admission and Anticipated Discharge Date Admission Date: July 28, 2023 Subjective off of IVF, amiodarone. Seen on late afternoon rounds. Patient with a sitter today. No complaints of pain or shortness of breath. Remains with Paz. In the middle of a meal on evaluation Review of Systems 2 Review of Systems: All systems reviewed & are unremarkable except as noted in Subjective Physical Exam 2 Constitutional: well developed and well nourished Eyes: EOM intact bilaterally ENMT: Ears: no external ear abnormality Nose: no external nose abnormality Mouth: + dry oral mucous membranes Neck: no nuchal rigidity Respiratory: normal respiratory effort Auscultation: + diminished lung sounds Cardiovascular: RRR, no murmur, no edema Gastrointestinal (Abdomen): Inspection/Auscultation: normal bowel sounds P ercussion/Palpation: abdomen soft; abdomen nontender Musculoskeletal: Extremities: strength 5/5 throughout Skin: no rashes, warm and dry Neurologic: Moves all extremities, fluent speech, poor historian Psychiatric: Orientation: alert and oriented to person Results & Data Vital Signs (Past 12 Hours) Vital Signs Temp Pulse Resp BP BP Pulse Ox O2 Del Method 07/30/23 08:00 36.6 C 74 20 111/62 92 Room Air 07/30/23 02:59 36.7 C 60 18 112/57 L 94 Room Air 07/29/23 22:58 36.4 C L 62 19 136/73 95 Room Air Laboratory Results 07/30/23 05:20 07/30/23 05:20 (1) Acute renal failure Acute renal failure type: unspecified Qualified Code(s): N17.9 - Acute kidney failure, unspecified
--- NOTE | 2023-07-30 13:08 | Cardiology Progress Note ---
Date of Service July 30, 2023 Assessment & Plan (1) Paroxysmal atrial fibrillation with RVR: (2) Acute renal failure: (3) Bladder outlet obstruction: Plan IMPRESSION: 83 year old male with remote history of coronary artery disease and hypertension presented to [facility] emergency department due to abdominal pain and generalized weakness. Found to have bilateral hydronephrosis and hydroureter with acute urinary retention and ANSELMO with presenting creatinine of 4.3. Cardiology consulted due to new onset atrial fibrillation with RVR PLAN: AFIB RVR: -AFIB RVR with rates into the 160s from 07/28 1030pm until 07/29 (1208am). Now maintained SR with rates 70-80s with frequent PACs/PVCs -Continue amiodarone gtt, will cautiously add in beta digna therapy with metoprolol tartrate 12.5 mg BID. -Patient with elevated CHADsVASC score of 4 (age 4, HTN, CAD) making him high risk for CVA in relation to PAF, however, he is at high risk for falls/bleeding due to cognitive decline and unsteady gait-- patient with possible frequent falls. At this time I am concerned that the risk of bleeding with anticoagulation will outweigh the benefit. Recommend ongoing monitoring on telemetry for recurrent PAF-- DIsucssion will need to be made with with family/caregiver regrading risks/benefits of long-term AC prior to discharge. -Manage electrolytes, K goal of 4.0 and mag goal of 2.0-- replace as needed. Potassium supplemented this am. ANSELMO: Treat underlying cause, bladder outlet obstruction/bilateral hydronephrosis. Will defer to hospitalist team. Agree with avoiding nephrotoxic agents. Appreciate nephrology recommendations. 07/30/2023 No further atrial fibrillation. Arrhythmia likely incited by acute illness as above. We will hold further metoprolol tartrate given relatively lower heart rates and intermittent blocked PACs We will continue to follow Admission and Anticipated Discharge Date Admission Date: July 28, 2023 Subjective Patient seen and examined, chart, telemetry reviewed. No further atrial arrhythmias Patient confused and disoriented but denies any acute complaints Paz catheter in place Review of Systems Review of Systems: Unobtainable due to cognitive status Physical Exam Constitutional: + altered mental status; no acute distre ss Neck: normal visual inspection and trachea midline Respiratory: normal respiratory effort; no respiratory distress Auscultation: + diminished lung sounds; no rales, no rhonchi and no wheezes Cardiovascular: Rate/Rhythm: regular rate and regular rhythm Heart Sounds: normal S1, normal S2 and + murmur (+1/6 systolic murmur) Vessels: no JVD Extremities: no edema Gastrointestinal (Abdomen): Inspection/Auscultation: normal bowel sounds; abdomen not distended Percussion/Palpation: abdomen nontender Skin: no rashes, warm and dry Psychiatric: Orientation: alert, oriented to person and oriented to place Results & Data Vital Signs (Past 12 Hours) Vital Signs Temp Pulse Resp BP BP Pulse Ox O2 Del Method 07/30/23 12:00 36.7 C 59 L 18 127/77 Room Air 07/30/23 08:00 36.6 C 74 20 111/62 92 Room Air 07/30/23 02:59 36.7 C 60 18 112/57 L 94 Room Air Laboratory Results Laboratory Results - last 24 hr 07/29/23 07/29/23 07/30/23 16:40 19:52 00:45 WBC RBC Hgb Hct MCV MCH MCHC RDW Std Deviation RDW Coeff of Dangelo Plt Count MPV Sodium Potassium Chloride Carbon Dioxide Anion Gap BUN Creatinine Est Cr Clr Drug Dosing Est GFR ( Amer) Est GFR (Non-Af Amer) BUN/Creatinine Ratio Glucose POC Glucose 99 103 H 89 Calcium 07/30/23 07/30/23 07/30/23 04:33 05:20 07:46 WBC 6.33 RBC 5.00 Hgb 14.9 Hct 43.7 MCV 87.4 MCH 29.8 MCHC 34.1 RDW Std Deviation 42.5 RDW Coeff of Dangelo 13.4 Plt Count 160 MPV 10.6 Sodium 141 Potassium 4.4 D Chloride 110 H Carbon Dioxide 28 Anion Gap 3 BUN 19 Creatinine 0.98 D Est Cr Clr Drug Dosing 56.2 Est GFR ( Amer) 83.5 Est GFR (Non-Af Amer) 72.0 BUN/Creatinine Ratio 19.4 Glucose 81 POC Glucose 81 86 Calcium 8.0 L 07/30/23 11:47 WBC RBC Hgb Hct MCV MCH MCHC RDW Std Deviation RDW Coeff of Dangelo Plt Count MPV Sodium Potassium Chloride Carbon Dioxide Anion Gap BUN Creatinine Est Cr Clr Drug Dosing Est GFR ( Amer) Est GFR (Non-Af Amer) BUN/Creatinine Ratio Glucose POC Glucose 82 Calcium (2) Acute renal failure Acute renal failure type: unspecified Qualified Code(s): N17.9 - Acute kidney failure, unspecified
[2023-07-30] MEDS: LANTUS PER UNIT CHARGE SQ SCH (20:22)
[2023-07-30] MEDS: TAMSULOSIN HCL 0.4 MG CAP PO SCH (20:58)
[2023-07-30] MEDS ORDERED: MELATONIN 3 MG TAB PO ONE (21:00)
[2023-07-30] MEDS: OLANZapine 10 MG/2.1 ML SDV IM PRN (22:09)
[2023-07-31] MEDS: HEPARIN SOD 5,000 UNIT/0.5 ML VIAL SQ SCH ×3 (05:49→20:02)
[2023-07-31 06:22] LABS: Hemoglobin 15.3 g/dl (14.0-18.0); Mean Corpuscular Hemoglobin 29.8 pg (25.0-34.0); Mean Corpuscular Hgb Conc 34.8 g/dL (32.0-36.0); Mean Corpuscular Volume 85.6 fL (80.0-100.0); Mean Platelet Volume 10.5 fL (9.4-12.4); Platelet Count 169 K/uL (130-400); RDW Coefficient of Variation 13.2 % (11.5-14.5); RDW Standard Deviation 41.4 fL (36.4-46.3); Red Blood Count 5.14 M/uL (4.70-6.10); White Blood Count 6.77 K/ul (4.8-10.8)
[2023-07-31 06:37] LABS: BUN Creatinine Ratio 13.8 (10-20); Calcium 8.4 mg/dl (8.6-10.3); Creatinine Clr Calc Pharmacy 58.3 ml/min; Est GFR (African American) 73.4 ml/min; Est GFR (Non-African American) 63.3 ml/min; Magnesium 1.5 mg/dl (1.7-2.4); Potassium 3.8 mmol/L (3.5-5.1)
[2023-07-31] MEDS: THIAMINE HCL 100 MG TAB PO SCH (08:17)
[2023-07-31] MEDS: ASPIRIN 81 MG ECTAB PO SCH (08:17)
[2023-07-31] MEDS: FOLIC ACID 400 MCG TAB PO SCH (08:18)
[2023-07-31] MEDS ORDERED: POTASSIUM CHLORIDE 10 MEQ TABCR PO STA (08:44)
--- NOTE | 2023-07-31 08:45 | Hospitalist Progress Note ---
Date of Service July 31, 2023 Assessment & Plan (1) Acute metabolic encephalopathy: Plan: Delirium resolved. Not combative at this time. Appears to be at baseline level of confusion. (2) Alcohol abuse with withdrawal: Plan: Resolved. Reports persistent alcohol use as above. Ativan PRN. Cont thiamine and folic acid. Combative behavior overnight requiring Zyprexa again. Possible contribution from underlying cognitive inhibition per records. This has not reappeared but he remains on a 1:1 (3) Acute renal failure: Plan: Resolved. Likely related to a combination of post obstructive uropathy 2/2 BPH and AUR with dehydration in the setting of alcohol abuse. (4) Acute urinary retention: Plan: Bilateral hydronephrosis on CT and acute urinary retention likely contributing to ANSELMO. Creatinine (and confusion) improved with alicea in place. Urine is dark in color and appears concentrated consistent with dehydration. Cont Flomax for BPH. TOV in one week per urology at their office. (5) Paroxysmal atrial fibrillation with RVR: Plan: Initially presented with rapid ventricular response. Amio drip initiated and also oral metoprolol. Metoprolol stopped 2/2 lower heart rates and intermittent blocked PACs. Amio also stopped and he remains in sinus rhythm. (6) CAD (coronary artery disease): Plan: chronic, appears stable. h/o stent placement. Denies chest pain or SOB. HS trop is negative. (7) DMII (diabetes mellitus, type 2): Plan: chronic, uncontrolled. Noncompliant with medication. A1C is 8.6. DVT proph: heparin Full Code Dispo-cont telemetry. Home pending ability of family to provide 24 hour care. Per CM he currently lives with his son who is not present 24/7 in the home and doesn't have any equipment or assistance at home. He doesn't cook and goes to the [employer] for dinner every day. Cont to identify proper support at home and until that time will cont hospitalization. Tiana Rios DO [facility] Admission and Anticipated Discharge Date Admission Date: July 28, 2023 Subjective 83 yo alcoholic man with dementia presented with confusion. Today he is less confused but still requiring a 1:1. He is oriented to person and place but not to time. Denies pain, SOB or other issues. Tolerating PO. No further afib on telemetry overnight. Physical Exam Physical Exam: CONSTITUTIONAL: WNWD, vitals as above, generally well-appearing, NAD EYES: normal conjunctivae, no scleral icterus ENT: external ear and nose normal, MMM NECK: trachea midline RESPIRATORY: clear to auscultation bilaterally, no crackles, rales or wheezes, normal respiratory effort CARDIOVASCULAR: regular rate and rhythm, S1 and 2 heard without murmurs, gallops or rubs, no JVD, no peripheral edema CHEST: inspection of chest was normal GASTROINTESTINAL:soft, nontender, Nd, no guarding MUSCULOSKELETAL: strength 5/5 throughout, head is normocephalic and atraumatic, neck supple, normal palpation of chest wall without tenderness SKIN: warm and dry NEUROLOGIC: CN 2-12 grossly intact, no sensory deficit, normal cognition, normal speech, no tremor PSYCHIATRIC: alert cooperative, oriented to person and place. Results & Data Results & Data Vital Signs (Past 12 Hours) Vital Signs Temp Pulse Resp BP BP Pulse Ox O2 Del Method 07/31/23 03:13 18 138/78 92 Room Air 07/30/23 22:24 36.5 C 79 18 163/71 H 93 Room Air Laboratory Results Short CBC 07/31/23 Range/Units 05:46 WBC 6.77 (4.8-10.8) K/ul Hgb 15.3 (14.0-18.0) g/dl Hct 44.0 (42.0-52.0) % Plt Count 169 (130-400) K/uL BMP 07/31/23 05:46 Sodium 141 Potassium 3.8 Chloride 108 H Carbon Dioxide 27 BUN 15 Creatinine 1.09 Glucose 98 Calcium 8.4 L Medications Administered Current Inpatient Medications Acetaminophen (Acetaminophen 325 Mg Tab) 650 mg PO Q4H PRN PRN Reason: pain/fever Stop: 08/27/23 21:05 Aspirin (Aspirin 81 Mg Ectab) 81 mg PO DAILY [place] Stop: 08/28/23 08:59 Last Admin: 07/31/23 08:17 Dose: 81 mg Dextrose (Dextrose 50% 50 Ml Syringe) 25 - 50 ml IV UD PRN; Protocol PRN Reason: Hypoglycemia Protocol Stop: 08/27/23 21:05 Docusate Sodium (Docusate Sodium 100 Mg Cap) 100 mg PO BID [place] Stop: 08/28/23 08:59 Last Admin: 07/30/23 20:58 Dose: 100 mg Folic Acid (Folic Acid 400 Mcg Tab) 400 mcg PO QAM [facility] Stop: 08/28/23 08:59 Last Admin: 07/31/23 08:18 Dose: 400 mcg Glucagon (Glucagon For Inj 1 Mg Vial) 1 mg SQ UD PRN; Protocol PRN Reason: Hypoglycemia Protocol Stop: 08/27/23 21:05 Glucose (Glucose 10 Tab/Tube) 4 - 8 tab PO UD PRN; Protocol PRN Reason: Hypoglycemia Treatment Stop: 08/27/23 21:05 Glucose (Glucose 40% Gel 15 Gm Tube) 15 - 30 gm PO UD PRN; Protocol PRN Reason: Hypoglycemia Protocol Stop: 08/27/23 21:05 Heparin Sodium (Porcine) (Heparin Sod 5,000 Unit/0.5 Ml Vial) 5,000 units SQ Q8 [place] Stop: 08/27/23 21:59 Last Admin: 07/31/23 05:49 Dose: 5,000 units Magnesium Sulfate/Dextrose (Magnesium Sulfate / D5w) 1 gm in 100 mls @ 50 mls/hr IV Q2H [facility] Stop: 07/31/23 14:44 Insulin Aspart (Insulin Aspart Per Unit Charge) 0 units SC ACHS [place] Stop: 08/27/23 21:05 Last Admin: 07/30/23 20:21 Dose: Not Given Insulin Glargine (Lantus Per Unit Charge) 0 units SQ HS [facility]; Protocol Stop: 08/29/23 20:59 Last Admin: 07/30/23 20:22 Dose: Not Given Metoprolol Tartrate (Metoprolol Tartrate 25 Mg Tab) 12.5 mg PO BID [facility] Stop: 08/28/23 09:29 Last Admin: 07/30/23 09:16 Dose: 12.5 mg Miscellaneous (Carbohydrates For Hypoglycemia ) 15 - 30 gm PO UD PRN PRN Reason: Hypoglycemia Protocol Stop: 08/27/23 21:05 Miscellaneous Information (Pharmacy Glycemic Mgmt Consult) 1 each N/A UD PRN PRN Reason: Consult Stop: 08/27/23 21:05 Olanzapine (Olanzapine 10 Mg/2.1 Ml Sdv) 2.5 mg IM Q6H PRN PRN Reason: Agitation Stop: 08/27/23 20:44 Last Admin: 07/30/23 22:09 Dose: 2.5 mg Ondansetron HCl (Ondansetron Inj 2 Mg/Ml 2 Ml Vial) 4 mg IV Q6H PRN PRN Reason: Nausea Stop: 08/27/23 21:05 Polyethylene Glycol (Polyethylene (Miralax) 17 Gm Pack) 17 gm PO DAILY PRN PRN Reason: Constipation Stop: 08/27/23 21:05 Polyethylene Glycol (Polyethylene (Miralax) 17 Gm Pack) 17 gm PO DAILY [place] Stop: 08/28/23 08:59 Last Admin: 07/30/23 09:43 Dose: 17 gm Potassium Chloride (Potassium Chloride 10 Meq Tabcr) 10 meq PO NOW STA Stop: 07/31/23 08:45 Tamsulosin HCl (Tamsulosin Hcl 0.4 Mg Cap) 0.4 mg PO HS [place] Stop: 08/28/23 20:59 Last Admin: 07/30/23 20:58 Dose: 0.4 mg Thiamine HCl (Thiamine Hcl 100 Mg Tab) 100 mg PO QAM [place] Stop: 08/28/23 08:59 Last Admin: 07/31/23 08:17 Dose: 100 mg (3) Acute renal failure Acute renal failure type: unspecified Qualified Code(s): N17.9 - Acute kidney failure, unspecified
[2023-07-31] MEDS: MAGNESIUM SULFATE / D5W 1 GM/100 ML BAG IV SCH ×3 (10:10→13:41)
[2023-07-31] MEDS: DOCUSATE SODIUM 100 MG CAP PO SCH ×2 (10:23→20:02)
[2023-07-31] MEDS: INSULIN ASPART PER UNIT CHARGE SC SCH ×4 (10:23→20:18)
[2023-07-31] MEDS: POLYETHYLENE (MIRALAX) 17 GM PACK PO SCH (10:23)
--- NOTE | 2023-07-31 12:22 | Cardiology Progress Note ---
Date of Service July 31, 2023 Assessment & Plan (1) Paroxysmal atrial fibrillation with RVR: (2) Acute renal failure: (3) Bladder outlet obstruction: Plan IMPRESSION: 83 year old male with remote history of coronary artery disease and hypertension presented to [facility] emergency department due to abdominal pain and generalized weakness. Found to have bilateral hydronephrosis and hydroureter with acute urinary retention and ANSELMO with presenting creatinine of 4.3. Cardiology consulted due to new onset atrial fibrillation with RVR PLAN: AFIB RVR: -AFIB RVR with rates into the 160s from 07/28 1030pm until 07/29 (1208am). Now maintained SR with rates 70-80s with frequent PACs/PVCs -Initially treated with amiodarone gtt, -Patient with elevated CHADsVASC score of 4 (age 4, HTN, CAD) making him high risk for CVA in relation to PAF, however, he is at high risk for falls/bleeding due to cognitive decline and unsteady gait-- patient with possible frequent falls. At this time I am concerned that the risk of bleeding with anticoagulati on will outweigh the benefit. Recommend ongoing monitoring on telemetry for recurrent PAF-- DIsucssion will need to be made with with family/caregiver regrading risks/benefits of long-term AC prior to discharge. -Manage electrolytes, K goal of 4.0 and mag goal of 2.0-- replace as needed. Potassium supplemented this am. ANSELMO: Treat underlying cause, bladder outlet obstruction/bilateral hydronephrosis. Will defer to hospitalist team. Agree with avoiding nephrotoxic agents. Appreciate nephrology recommendations. 07/30/2023 No further atrial fibrillation. Arrhythmia likely incited by acute illness as above. We will hold further metoprolol tartrate given relatively lower heart rates and intermittent blocked PACs We will continue to follow 07/31/2023 Impression: 1. Paroxysmal atrial fibrillation: Likely incited by acute illness renal insufficiency, hypokalemia. Patient with spontaneous conversion to sinus rhythm. Baseline rhythm appears relatively slow with blocked PACs Will not continue AV node blocking medications or antiarrhythmic therapies. No recurrence of arrhythmias noted since acute illness improved. Poor anticoagulation candidate Additional potassium given today Admission and Anticipated Discharge Date Admission Date: July 28, 2023 Subjective Patient seen and examined, chart, medications, telemetry reviewed More oriented today still somewhat confused but less agitated No arrhythmias on telemetry other than occasional blocked PACs and transient junctional Review of Systems Review of Systems: Unobtainable due to cognitive status Physical Exam Constitutional: + altered mental status; no acute distre ss Neck: normal visual inspection and trachea midline Respiratory: normal respiratory effort; no respiratory distress Auscultation: + diminished lung sounds; no rales, no rhonchi and no wheezes Cardiovascular: Rate/Rhythm: regular rate and regular rhythm Heart Sounds: normal S1, normal S2 and + murmur (+1/6 systolic murmur) Vessels: no JVD Extremities: no edema Gastrointestinal (Abdomen): Inspection/Auscultation: normal bowel sounds; abdomen not distended Percussion/Palpation: abdomen nontender Skin: no rashes, warm and dry Psychiatric: Orientation: alert, oriented to person and oriented to place Results & Data Vital Signs (Past 12 Hours) Vital Signs Resp BP Pulse Ox O2 Del Method 07/31/23 03:13 18 138/78 92 Room Air Laboratory Results Laboratory Results - last 24 hr 07/30/23 07/30/23 07/31/23 16:23 20:08 05:46 WBC 6.77 RBC 5.14 Hgb 15.3 Hct 44.0 MCV 85.6 MCH 29.8 MCHC 34.8 RDW Std Deviation 41.4 RDW Coeff of Dangelo 13.2 Plt Count 169 MPV 10.5 Sodium 141 Potassium 3.8 Chloride 108 H Carbon Dioxide 27 Anion Gap 6 BUN 15 Creatinine 1.09 Est Cr Clr Drug Dosing 58.3 Est GFR ( Amer) 73.4 Est GFR (Non-Af Amer) 63.3 BUN/Creatinine Ratio 13.8 Glucose 98 POC Glucose 108 H 134 H Calcium 8.4 L Magnesium 1.5 L 07/31/23 07/31/23 08:14 11:50 WBC RBC Hgb Hct MCV MCH MCHC RDW Std Deviation RDW Coeff of Dangelo Plt Count MPV Sodium Potassium Chloride Carbon Dioxide Anion Gap BUN Creatinine Est Cr Clr Drug Dosing Est GFR ( Amer) Est GFR (Non-Af Amer) BUN/Creatinine Ratio Glucose POC Glucose 102 H 123 H Calcium Magnesium (2) Acute renal failure Acute renal failure type: unspecified Qualified Code(s): N17.9 - Acute kidney failure, unspecified
[2023-07-31] MEDS ORDERED: POTASSIUM CHLORIDE CRTAB 20 MEQ TABCR PO ONE (12:23)
--- NOTE | 2023-07-31 15:12 | Pharmacy Report ---
Pharmacy Glycemic Short Note 2 - Date of Service July 31, 2023 - Glycemic Short BSG Results (Last 24 hours): 07/30/23 07/30/23 07/31/23 16:23 20:08 05:46 Glucose 98 POC Glucose 108 H 134 H 07/31/23 07/31/23 08:14 11:50 Glucose POC Glucose 102 H 123 H OUTPATIENT ANTIDIABETIC REGIMEN: * reported non-compliance w/ metformin HbA1c: 8.6% (07/29/23) ASSESSMENT: 07/31: * Alexsander received no units of insulin yesterday, does not appear to have eaten much yesterday per nursing documentation * Fasting BSG slightly below goal range this AM, will continue small Lantus sca le HS based on BSG * Difficult to assess Novolog efficacy, continue current parameters. 07/29: * DANGELO is an 83 year old male who presented to ED on 07/28/23 w/ feelings of general unwellness/weakness and polyuria * Found to have BSG of 358 mg/dL - responded well to IV insulin bolus. Patient also w/ suspected bladder outlet obstruction. * Hyperglycemic today in 200s. Will conservatively increase insulin regimen today and add overnight checks tonight. * Diet ordered. IV fluids (NSS + 20 KCl @100 mL/hr) infusing currently. PLAN FOR INPATIENT GLYCEMIC CONTROL: * Basal insulin * Lantus 0-10 units SC HS (see eMAR for additional details) * Bolus insulin * NovoLog per scale ACHS or Q6hrs while NPO * Goal Range: Low 110 mg/dL - High 140 mg/dL * Correction Factor: 30 mg/dL/unit * Nutritional / Prandial insulin per carb ratio of 1 unit per 12 grams CHO consumed
[2023-07-31] MEDS: TAMSULOSIN HCL 0.4 MG CAP PO SCH (20:02)
[2023-07-31] MEDS: LANTUS PER UNIT CHARGE SQ SCH (20:18)
[2023-08-01] MEDS: HEPARIN SOD 5,000 UNIT/0.5 ML VIAL SQ SCH (05:39)
[2023-08-01 06:39] LABS: Hematocrit (blood only) 45.9 % (42.0-52.0); Hemoglobin 15.7 g/dl (14.0-18.0); Mean Corpuscular Hemoglobin 29.5 pg (25.0-34.0); Mean Corpuscular Hgb Conc 34.2 g/dL (32.0-36.0); Mean Corpuscular Volume 86.3 fL (80.0-100.0); Mean Platelet Volume 10.3 fL (9.4-12.4); Platelet Count 166 K/uL (130-400); RDW Coefficient of Variation 13.2 % (11.5-14.5); RDW Standard Deviation 41.3 fL (36.4-46.3); Red Blood Count 5.32 M/uL (4.70-6.10); White Blood Count 6.23 K/ul (4.8-10.8)
[2023-08-01 06:52] LABS: BUN Creatinine Ratio 14.8 (10-20); Calcium 8.6 mg/dl (8.6-10.3); Creatinine Clr Calc Pharmacy 58.9 ml/min; Est GFR (African American) 74.2 ml/min; Magnesium 1.9 mg/dl (1.7-2.4)
--- NOTE | 2023-08-01 08:49 | XRay Report ---
BONY ORBITS 3 VIEWS CLINICAL HISTORY: MRI clearance. FINDINGS: 3 views of the bony orbits are obtained. No prior studies are available for comparison at t he time of dictation. There is no radiodense/metallic foreign body seen in the region of the bony orb its. The bony orbits are intact as imaged. The visualized paranasal sinuses and the mastoid air cells appear clear. The imaged calvarium appears intact. The patient is edentulous. IMPRESSION: There is no radiodense/metallic foreign body seen in the region of the bony orbits. ACT 112: Negative or not required by law. Electronically signed by: Dallas Ramirez M.D. 08/01/2023 8:48 AM
--- NOTE | 2023-08-01 09:17 | Hospitalist Progress Note ---
Date of Service August 01, 2023 Assessment & Plan (1) Acute metabolic encephalopathy: Plan: Intermittent confusion is likely a combination of history of heavy ETOH use, dementia and recent stroke. (2) Alcohol abuse with withdrawal: Plan: Resolved. Cont thiamine and folic acid. Combative behavior intermittently requiring Zyprexa again. Possible contribution from underlying cognitive inhib ition per records. This has not reappeared but he remains on a 1:1 (3) Acute embolic stroke: Plan: recent afib with RVR. Added apixaban. Cont supportive care measures. (4) Acute renal failure: Plan: Resolved. Likely related to a combination of post obstructive uropathy 2/2 BPH and AUR with dehydration in the setting of alcohol abuse. (5) Acute urinary retention: Plan: Bilateral hydronephrosis on CT and acute urinary retention likely contributing to ANSELMO. Creatinine (and confusion) improved with alicea in place. Urine is dark in color and appears concentrated consistent with dehydration. Evaluated by Urology. Cont Flomax for BPH. TOV in one week per urology at their office. (6) Paroxysmal atrial fibrillation with RVR: Plan: Initially presented with rapid ventricular response. Amio drip initiated and also oral metoprolol. Metoprolol stopped 2/2 lower heart rates and intermittent blocked PACs. Amio also stopped and he remains in sinus rhythm. Apixaban started as noted above. Avoid AV renetta agents per cardiology given resting bradycardia. He has had no further antiarrhythmic since acute illness. (7) CAD (coronary artery disease): Plan: chronic, appears stable. h/o stent placement. Denies chest pain or SOB. HS trop is negative. (8) DMII (diabetes mellitus, type 2): Plan: chronic, uncontrolled. Noncompliant with medication. A1C is 8.6. DVT proph: heparin Full Code Dispo-cont telemetry. Home pending ability of family to provide 24 hour care. May need PT to re-evaluate given recent finding on acute stroke. Per CM he currently lives with his son who is not present 24/7 in the home and doesn't have any equipment or assistance at home. He doesn't cook and goes to the [employer] for dinner every day. Cont to identify proper support at home and until that time will cont hospitalization. Tiana Rios DO [facility] Admission and Anticipated Discharge Date Admission Date: July 28, 2023 Subjective 83 yo alcoholic man with dementia presented with confusion. Found to be in new onset afib which converted to NSR on HD2. Persistent ataxic gait and confusion prompted MRI brain which revealed embolic appearing stroke. Placed on apixaban. Continues to remain oriented to person only and intermittently confus ed/combative at times. Denies pain, SOB or other issues. Tolerating PO. No further afib on telemetry overnight. Physical Exam Physical Exam: CONSTITUTIONAL: WNWD, vitals as above, generally well-appearing, NAD EYES: normal conjunctivae, no scleral icterus ENT: external ear and nose normal, MMM NECK: trachea midline RESPIRATORY: clear to auscultation bilaterally, no crackles, rales or wheezes, normal respiratory effort CARDIOVASCULAR: regular rate and rhythm, S1 and 2 heard without murmurs, gallops or rubs, no JVD, no peripheral edema CHEST: inspection of chest was normal GASTROINTESTINAL:soft, nontender, Nd, no guarding MUSCULOSKELETAL: strength 5/5 throughout, head is normocephalic and atraumatic, neck supple, normal palpation of chest wall without tenderness SKIN: warm and dry NEUROLOGIC: CN 2-12 grossly intact, no sensory deficit, normal cognition, normal speech, no tremor, gait not assessed. PSYCHIATRIC: alert cooperative, oriented to person only. Some difficulty following instructions. Results & Data Results & Data Vital Signs (Past 12 Hours) Vital Signs Temp Pulse Pulse Resp BP BP Pulse Ox 08/01/23 07:42 36.6 C 71 18 143/78 H 94 08/01/23 03:10 36.4 C L 63 16 140/68 92 07/31/23 23:21 75 07/31/23 22:54 36.7 C 72 18 147/62 H 94 O2 Del Method 08/01/23 07:42 Room Air 08/01/23 03:10 Room Air 07/31/23 23:21 07/31/23 22:54 Room Air Laboratory Results Short CBC 08/01/23 Range/Units 05:55 WBC 6.23 (4.8-10.8) K/ul Hgb 15.7 (14.0-18.0) g/dl Hct 45.9 (42.0-52.0) % Plt Count 166 (130-400) K/uL BMP 08/01/23 05:55 Sodium 137 Potassium 4.0 Chloride 103 Carbon Dioxide 27 BUN 16 Creatinine 1.08 Glucose 153 H Calcium 8.6 Diagnostic Findings Brain MRI 08/01/23 08:15 MRI OF THE BRAIN WITHOUT IV CONTRAST CLINICAL HISTORY: Change in mental status. Ataxia. COMPARISON STUDY: CT of the brain dated 07/28/2023. TECHNIQUE: MRI of the brain was performed utilizing various T1 and T2-weighted sequences in the axial, sagittal, and coronal planes. IV contrast was not administered for this examination. FINDINGS: Brain parenchyma: There is age-related involutional change noting moderate subcortical and periventricular microangiopathic disease. There are punctate foci of restricted diffusion seen within the high frontal white matter bilaterally, within the left posterior periventricular white matter, and within the left temporal lobe white matter consistent with acute to subacute lacunar infarcts. There is also a focus of restricted diffusion in the left temporal lobe white matter which measures up to 9 mm. These are consistent with acute subacute lacunar infarcts. There is no hemorrhage or mass effect. No extra-a xial fluid collection is seen. The cerebellar tonsils are normal in configuration. Ventricles, sulci, and cisterns: Prominent secondary to involutional change. Pituitary and sella: Unremarkable. Intracranial vasculature: Normal flow voids are maintained at the skull base. Orbits: The bony orbits are grossly intact. Orbital contents are normal in appearance noting bilateral ocular lens implants. Sinuses and mastoids: Clear. Calvarium: Unremarkable. Cervical cord: Partially visualized cervical spinal cord is normal in morphology and signal intensity. IMPRESSION: 1. There are numerous (at least 5) subcentimeter foci of restricted diffusion in the bilateral white matter as above consistent with acute to subacute lacunar infarcts. The distribution favors an embolic phenomenon. 2. There is no hemorrhage or mass effect. ACT 112: Negative or not required by law. Electronically signed by: Dallas Ramirez M.D. 08/01/2023 9:17 AM Orbit X-Ray 08/01/23 07:43 BONY ORBITS 3 VIEWS CLINICAL HISTORY: MRI clearance. FINDINGS: 3 views of the bony orbits are obtained. No prior studies are available for comparison at the time of dictation. There is no radiodense/metallic foreign body seen in the region of the bony orbits. The bony orbits are intact as imaged. The visualized paranasal sinuses and the mastoid air cells appear clear. The imaged calvarium appears intact. The patient is edentulous. IMPRESSION: There is no radiodense/metallic foreign body seen in the region of the bony orbits. ACT 112: Negative or not required by law. Electronically signed by: Dallas Ramirez M.D. 08/01/2023 8:48 AM Medications Administered Current Inpatient Medications Acetaminophen (Acetaminophen 325 Mg Tab) 650 mg PO Q4H PRN PRN Reason: pain/fever Stop: 08/27/23 21:05 Aspirin (Aspirin 81 Mg Ectab) 81 mg PO DAILY [place] Stop: 08/28/23 08:59 Last Admin: 07/31/23 08:17 Dose: 81 mg Dextrose (Dextrose 50% 50 Ml Syringe) 25 - 50 ml IV UD PRN; Protocol PRN Reason: Hypoglycemia Protocol Stop: 08/27/23 21:05 Docusate Sodium (Docusate Sodium 100 Mg Cap) 100 mg PO BID [place] Stop: 08/28/23 08:59 Last Admin: 07/31/23 20:02 Dose: Not Given Folic Acid (Folic Acid 400 Mcg Tab) 400 mcg PO QAM [place] Stop: 08/28/23 08:59 Last Admin: 07/31/23 08:18 Dose: 400 mcg Glucagon (Glucagon For Inj 1 Mg Vial) 1 mg SQ UD PRN; Protocol PRN Reason: Hypoglycemia Protocol Stop: 08/27/23 21:05 Glucose (Glucose 10 Tab/Tube) 4 - 8 tab PO UD PRN; Protocol PRN Reason: Hypoglycemia Treatment Stop: 08/27/23 21:05 Glucose (Glucose 40% Gel 15 Gm Tube) 15 - 30 gm PO UD PRN; Protocol PRN Reason: Hypoglycemia Protocol Stop: 08/27/23 21:05 Heparin Sodium (Porcine) (Heparin Sod 5,000 Unit/0.5 Ml Vial) 5,000 units SQ Q8 [place] Stop: 08/27/23 21:59 Last Admin: 08/01/23 05:39 Dose: 5,000 units Insulin Aspart (Insulin Aspart Per Unit Charge) 0 units SC ACHS [place] Stop: 08/27/23 21:05 Last Admin: 07/31/23 20:18 Dose: Not Given Insulin Glargine (Lantus Per Unit Charge) 0 units SQ HS [place]; Protocol Stop: 08/29/23 20:59 Last Admin: 07/31/23 20:18 Dose: Not Given Miscellaneous (Carbohydrates For Hypoglycemia ) 15 - 30 gm PO UD PRN PRN Reason: Hypoglycemia Protocol Stop: 08/27/23 21:05 Miscellaneous Information (Pharmacy Glycemic Mgmt Consult) 1 each N/A UD PRN PRN Reason: Consult Stop: 08/27/23 21:05 Olanzapine (Olanzapine 10 Mg/2.1 Ml Sdv) 2.5 mg IM Q6H PRN PRN Reason: Agitation Stop: 08/27/23 20:44 Last Admin: 07/30/23 22:09 Dose: 2.5 mg Ondansetron HCl (Ondansetron Inj 2 Mg/Ml 2 Ml Vial) 4 mg IV Q6H PRN PRN Reason: Nausea Stop: 08/27/23 21:05 Polyethylene Glycol (Polyethylene (Miralax) 17 Gm Pack) 17 gm PO DAILY PRN PRN Reason: Constipation Stop: 08/27/23 21:05 Polyethylene Glycol (Polyethylene (Miralax) 17 Gm Pack) 17 gm PO DAILY [place] Stop: 08/28/23 08:59 Last Admin: 07/31/23 10:23 Dose: Not Given Tamsulosin HCl (Tamsulosin Hcl 0.4 Mg Cap) 0.4 mg PO HS [facility] Stop: 08/28/23 20:59 Last Admin: 07/31/23 20:02 Dose: 0.4 mg Thiamine HCl (Thiamine Hcl 100 Mg Tab) 100 mg PO QAM [facility] Stop: 08/28/23 08:59 Last Admin: 07/31/23 08:17 Dose: 100 mg (4) Acute renal failure Acute renal failure type: unspecified Qualified Code(s): N17.9 - Acute kidney failure, unspecified
--- NOTE | 2023-08-01 09:20 | Magnetic Resonance Report ---
MRI OF THE BRAIN WITHOUT IV CONTRAST CLINICAL HISTORY: Change in mental status. Ataxia. COMPARISON STUDY: CT of the brain dated 07/28/2023. TECHNIQUE: MRI of the brain was performed utilizing various T1 and T2-weighted sequences in the axial , sagittal, and coronal planes. IV contrast was not administered for this examination. FINDINGS: Brain parenchyma: There is age-related involutional change noting moderate subcortical and periventri cular microangiopathic disease. There are punctate foci of restricted diffusion seen within the high frontal white matter bilaterally, within the left posterior periventricular white matter, and within the left temporal lobe white matter consistent with acute to subacute lacunar infarcts. There is also a focus of restricted diffusion in the left temporal lobe white matter which measures up to 9 mm. Th [place] are consistent with acute subacute lacunar infarcts. There is no hemorrhage or mass effect. No e xtra-axial fluid collection is seen. The cerebellar tonsils are normal in configuration. Ventricles, sulci, and cisterns: Prominent secondary to involutional change. Pituitary and sella: Unremarkable. Intracranial vasculature: Normal flow voids are maintained at the skull base. Orbits: The bony orbits are grossly intact. Orbital contents are normal in appearance noting bilatera l ocular lens implants. Sinuses and mastoids: Clear. Calvarium: Unremarkable. Cervical cord: Partially visualized cervical spinal cord is normal in morphology and signal intensity . IMPRESSION: 1. There are numerous (at least 5) subcentimeter foci of restricted diffusion in the bilateral white matter as above consistent with acute to subacute lacunar infarcts. The distribution favors an emboli c phenomenon. 2. There is no hemorrhage or mass effect. ACT 112: Negative or not required by law. Electronically signed by: Dallas Ramirez M.D. 08/01/2023 9:17 AM
[2023-08-01] MEDS: ASPIRIN 81 MG ECTAB PO SCH (09:24)
[2023-08-01] MEDS: DOCUSATE SODIUM 100 MG CAP PO SCH ×2 (09:25→19:47)
[2023-08-01] MEDS: FOLIC ACID 400 MCG TAB PO SCH (09:25)
[2023-08-01] MEDS: THIAMINE HCL 100 MG TAB PO SCH (09:25)
[2023-08-01] MEDS: INSULIN ASPART PER UNIT CHARGE SC SCH ×4 (09:26→21:27)
[2023-08-01] MEDS: POLYETHYLENE (MIRALAX) 17 GM PACK PO SCH (09:26)
[2023-08-01] MEDS: APIXABAN 5 MG TABLET PO SCH ×2 (11:03→19:48)
--- NOTE | 2023-08-01 14:08 | Cardiology Progress Note ---
Date of Service August 01, 2023 Assessment & Plan (1) Paroxysmal atrial fibrillation with RVR: (2) Acute renal failure: (3) Bladder outlet obstruction: Plan IMPRESSION: 83 year old male with remote history of coronary artery disease and hypertension presented to [facility] emergency department due to abdominal pain and generalized weakness. Found to have bilateral hydronephrosis and hydroureter with acute urinary retention and ANSELMO with presenting creatinine of 4.3. Cardiology consulted due to new onset atrial fibrillation with RVR PLAN: AFIB RVR: -AFIB RVR with rates into the 160s from 07/28 1030pm until 07/29 (1208am). Now maintained SR with rates 70-80s with frequent PACs/PVCs -Initially treated with amiodarone gtt, -Patient with elevated CHADsVASC score of 4 (age 4, HTN, CAD) making him high risk for CVA in relation to PAF, however, he is at high risk for falls/bleeding due to cognitive decline and unsteady gait-- patient with possible frequent falls. At this time I am concerned that the risk of bleeding with anticoagulati on will outweigh the benefit. Recommend ongoing monitoring on telemetry for recurrent PAF-- DIsucssion will need to be made with with family/caregiver regrading risks/benefits of long-term AC prior to discharge. -Manage electrolytes, K goal of 4.0 and mag goal of 2.0-- replace as needed. Potassium supplemented this am. ANSELMO: Treat underlying cause, bladder outlet obstruction/bilateral hydronephrosis. Will defer to hospitalist team. Agree with avoiding nephrotoxic agents. Appreciate nephrology recommendations. 07/30/2023 No further atrial fibrillation. Arrhythmia likely incited by acute illness as above. We will hold further metoprolol tartrate given relatively lower heart rates and intermittent blocked PACs We will continue to follow 07/31/2023 Impression: 1. Paroxysmal atrial fibrillation: Likely incited by acute illness renal insufficiency, hypokalemia. Patient with spontaneous conversion to sinus rhythm. Baseline rhythm appears relatively slow with blocked PACs Will not continue AV node blocking medications or antiarrhythmic therapies. No recurrence of arrhythmias noted since acute illness improved. Poor anticoagulation candidate Additional potassium given today 08/01/2023 1. Paroxysmal atrial fibrillation: No recurrence in hospital since initial presentation, subsequent spontaneous conversion to sinus rhythm. Patient now with better mentation and cooperation and subsequent MRI demonstrates evidence of likely embolic stroke agree with anticoagulation with Eliquis. Would not initiate any AV renetta blocking medications or antiarrhythmic therapies given resting bradycardia Admission and Anticipated Discharge Date Admission Date: July 28, 2023 Subjective Patient seen and examined chart reviewed once again more oriented today Telemetry with sinus rhythm with PACs and blocked PACs transient junctional rhythm No bradycardia arrhythmias or tachycardia Events noted with patient unstable gait on ambulation underwent MRI suggestive of recent embolic infarct now on anticoagulation Patient with little insight Review of Systems Review of Systems: All systems reviewed & are unremarkable except as noted in Subjective Physical Exam Constitutional: + altered mental status; no acute distre ss Neck: normal visual inspection and trachea midline Respiratory: normal respiratory effort; no respiratory distress Auscultation: + diminished lung sounds; no rales, no rhonchi and no wheezes Cardiovascular: Rate/Rhythm: regular rate and regular rhythm Heart Sounds: normal S1, normal S2 and + murmur (+1/6 systolic murmur) Vessels: no JVD Extremities: no edema Gastrointestinal (Abdomen): Inspection/Auscultation: normal bowel sounds; abdomen not distended Percussion/Palpation: abdomen nontender Skin: no rashes, warm and dry Psychiatric: Orientation: alert, oriented to person and oriented to place Results & Data Vital Signs (Past 12 Hours) Vital Signs Temp Pulse Pulse Resp BP Pulse Ox O2 Del Method 08/01/23 13:25 68 08/01/23 11:06 36.3 C L 71 18 131/75 97 Room Air 08/01/23 07:42 36.6 C 71 18 143/78 H 94 Room Air 08/01/23 03:10 36.4 C L 63 16 140/68 92 Room Air Laboratory Results Laboratory Results - last 24 hr 07/31/23 07/31/23 08/01/23 16:45 20:13 05:55 WBC 6.23 RBC 5.32 Hgb 15.7 Hct 45.9 MCV 86.3 MCH 29.5 MCHC 34.2 RDW Std Deviation 41.3 RDW Coeff of Dangelo 13.2 Plt Count 166 MPV 10.3 Sodium 137 Potassium 4.0 Chloride 103 Carbon Dioxide 27 Anion Gap 7 BUN 16 Creatinine 1.08 Est Cr Clr Drug Dosing 58.9 Est GFR ( Amer) 74.2 Est GFR (Non-Af Amer) 64.0 BUN/Creatinine Ratio 14.8 Glucose 153 H POC Glucose 136 H 100 H Calcium 8.6 Magnesium 1.9 08/01/23 08/01/23 07:19 11:08 WBC RBC Hgb Hct MCV MCH MCHC RDW Std Deviation RDW Coeff of Dangelo Plt Count MPV Sodium Potassium Chloride Carbon Dioxide Anion Gap BUN Creatinine Est Cr Clr Drug Dosing Est GFR ( Amer) Est GFR (Non-Af Amer) BUN/Creatinine Ratio Glucose POC Glucose 151 H 143 H Calcium Magnesium (2) Acute renal failure Acute renal failure type: unspecified Qualified Code(s): N17.9 - Acute kidney failure, unspecified
[2023-08-01] MEDS: TAMSULOSIN HCL 0.4 MG CAP PO SCH (19:47)
[2023-08-01] MEDS: LANTUS PER UNIT CHARGE SQ SCH (21:27)
[2023-08-02] MEDS: APIXABAN 5 MG TABLET PO SCH ×2 (08:02→22:17)
[2023-08-02] MEDS: INSULIN ASPART PER UNIT CHARGE SC SCH ×4 (08:02→22:19)
[2023-08-02] MEDS: DOCUSATE SODIUM 100 MG CAP PO SCH ×2 (08:03→22:19)
[2023-08-02] MEDS: THIAMINE HCL 100 MG TAB PO SCH (08:03)
[2023-08-02] MEDS: ASPIRIN 81 MG ECTAB PO SCH (08:03)
[2023-08-02] MEDS: FOLIC ACID 400 MCG TAB PO SCH (08:04)
[2023-08-02] MEDS: POLYETHYLENE (MIRALAX) 17 GM PACK PO SCH (08:04)
--- NOTE | 2023-08-02 08:25 | Hospitalist Progress Note ---
Date of Service August 02, 2023 Assessment & Plan (1) Acute metabolic encephalopathy: Plan: Intermittent confusion is likely a combination of history of heavy ETOH use, dementia and recent stroke. (2) Alcohol abuse with withdrawal: Plan: Resolved. Cont thiamine and folic acid. Combative behavior intermittently requiring Zyprexa. Possible contribution from underlying cognitive inhibition per records. Pt is not on 1:1 at this point (3) Acute embolic stroke: Plan: recent afib with RVR. Added apixaban. Cont supportive care measures. (4) Acute renal failure: Plan: Resolved. Likely related to a combination of post obstructive uropathy 2/2 BPH and AUR with dehydration in the setting of alcohol abuse. (5) Acute urinary retention: Plan: Bilateral hydronephrosis on CT and acute urinary retention likely contributing to ANSELMO. Creatinine (and confusion) improved with alicea in place. Evaluated by Urology. Cont Flomax for BPH. TOV in one week per urology at their office. (6) Paroxysmal atrial fibrillation with RVR: Plan: Initially presented with rapid ventricular response. Amio drip initiated and also oral metoprolol. Metoprolol stopped 2/2 lower heart rates and intermittent blocked PACs. Amio also stopped and he remains in sinus rhythm. Apixaban started as noted above. Avoid AV renetta agents per cardiology given resting bradycardia. He has had no further antiarrhythmic since acute illness. (7) CAD (coronary artery disease): Plan: chronic, appears stable. h/o stent placement. Denies chest pain or SOB. HS trop is negative. (8) DMII (diabetes mellitus, type 2): Plan: chronic, uncontrolled. Noncompliant with medication. A1C is 8.6. DVT proph: heparin Full Code Dispo-cont telemetry. Home pending ability of family to provide 24 hour care. May need PT to re-evaluate given recent finding on acute stroke. Per CM he currently lives with his son who is not present 24/7 in the home and doesn't have any equipment or assistance at home. He doesn't cook and goes to the [employer] for dinner every day. Cont to identify proper support at home and until that time will cont hospitalization. CM involved - plan for [facility] Admission and Anticipated Discharge Date Admission Date: July 28, 2023 Subjective 83 yo alcoholic man with dementia presented with confusion. Found to be in new onset afib which converted to NSR. Persistent ataxic gait and confusion prompted MRI brain which revealed embolic appearing stroke. Placed on apixaban. Continues to be intermittently confused/combative at times. Denies pain, SOB or other issues. Tolerating PO. No further afib on telemetry. Review of Systems Review of Systems: All systems reviewed & are unremarkable except as noted in Subjective Physical Exam Physical Exam: CONSTITUTIONAL: WNWD, M in NAD EYES: normal conjunctivae, no scleral icterus ENT: external ear and nose normal, MMM NECK: supple RESPIRATORY: clear to auscultation bilaterally, no crackles, rales or wheezes, normal respiratory effort CARDIOVASCULAR: regular rate and rhythm, S1 and 2 heard without murmurs CHEST: inspection of chest normal GASTROINTESTINAL:soft, nontender, Nd, no guarding MUSCULOSKELETAL: head is normocephalic and atraumatic, neck supple, moves extremities SKIN: warm and dry NEURO/PSYCH: alert cooperative, oriented to person only. Only answers some questions appropriately. Some difficulty following instructions. normal speech, no tremor, moves extremities Results & Data Results & Data Vital Signs (Past 12 Hours) Vital Signs Temp Pulse Pulse Resp BP BP Pulse Ox 08/02/23 08:11 36.9 C 67 18 141/86 H 92 08/02/23 03:16 36.6 C 81 18 130/72 90 08/02/23 02:37 77 08/01/23 23:29 36.3 C L 53 L 18 130/80 95 08/01/23 20:32 70 O2 Del Method 08/02/23 08:11 Room Air 08/02/23 03:16 Room Air 08/02/23 02:37 08/01/23 23:29 Room Air 08/01/23 20:32 Laboratory Results 08/02/23 08/01/23 08/01/23 Range/Units 07:42 16:33 11:08 POC Glucose 127 H 122 H 143 H (70-99) mg/dl Medications Administered Current Inpatient Medications Acetaminophen (Acetaminophen 325 Mg Tab) 650 mg PO Q4H PRN PRN Reason: pain/fever Stop: 08/27/23 21:05 Apixaban (Apixaban 5 Mg Tablet) 5 mg PO BID [place] Stop: 08/31/23 10:14 Last Admin: 08/02/23 08:02 Dose: 5 mg Aspirin (Aspirin 81 Mg Ectab) 81 mg PO DAILY [facility] Stop: 08/28/23 08:59 Last Admin: 08/02/23 08:03 Dose: 81 mg Dextrose (Dextrose 50% 50 Ml Syringe) 25 - 50 ml IV UD PRN; Protocol PRN Reason: Hypoglycemia Protocol Stop: 08/27/23 21:05 Docusate Sodium (Docusate Sodium 100 Mg Cap) 100 mg PO BID [facility] Stop: 08/28/23 08:59 Last Admin: 08/02/23 08:03 Dose: 100 mg Folic Acid (Folic Acid 400 Mcg Tab) 400 mcg PO QAM [facility] Stop: 08/28/23 08:59 Last Admin: 08/02/23 08:04 Dose: 400 mcg Glucagon (Glucagon For Inj 1 Mg Vial) 1 mg SQ UD PRN; Protocol PRN Reason: Hypoglycemia Protocol Stop: 08/27/23 21:05 Glucose (Glucose 10 Tab/Tube) 4 - 8 tab PO UD PRN; Protocol PRN Reason: Hypoglycemia Treatment Stop: 08/27/23 21:05 Glucose (Glucose 40% Gel 15 Gm Tube) 15 - 30 gm PO UD PRN; Protocol PRN Reason: Hypoglycemia Protocol Stop: 08/27/23 21:05 Insulin Aspart (Insulin Aspart Per Unit Charge) 0 units SC [facility] Stop: 08/27/23 21:05 Last Admin: 08/02/23 08:02 Dose: 3 units Insulin Glargine (Lantus Per Unit Charge) 0 units SQ HS [facility]; Protocol Stop: 08/29/23 20:59 Last Admin: 08/01/23 21:27 Dose: Not Given Miscellaneous (Carbohydrates For Hypoglycemia ) 15 - 30 gm PO UD PRN PRN Reason: Hypoglycemia Protocol Stop: 08/27/23 21:05 Miscellaneous Information (Pharmacy Glycemic Mgmt Consult) 1 each N/A UD PRN PRN Reason: Consult Stop: 08/27/23 21:05 Olanzapine (Olanzapine 10 Mg/2.1 Ml Sdv) 2.5 mg IM Q6H PRN PRN Reason: Agitation Stop: 08/27/23 20:44 Last Admin: 07/30/23 22:09 Dose: 2.5 mg Ondansetron HCl (Ondansetron Inj 2 Mg/Ml 2 Ml Vial) 4 mg IV Q6H PRN PRN Reason: Nausea Stop: 08/27/23 21:05 Polyethylene Glycol (Polyethylene (Miralax) 17 Gm Pack) 17 gm PO DAILY PRN PRN Reason: Constipation Stop: 08/27/23 21:05 Polyethylene Glycol (Polyethylene (Miralax) 17 Gm Pack) 17 gm PO DAILY [facility] Stop: 08/28/23 08:59 Last Admin: 08/02/23 08:04 Dose: Not Given Tamsulosin HCl (Tamsulosin Hcl 0.4 Mg Cap) 0.4 mg PO HS [facility] Stop: 08/28/23 20:59 Last Admin: 08/01/23 19:47 Dose: 0.4 mg Thiamine HCl (Thiamine Hcl 100 Mg Tab) 100 mg PO QAM [facility] Stop: 08/28/23 08:59 Last Admin: 08/02/23 08:03 Dose: 100 mg (4) Acute renal failure Acute renal failure type: unspecified Qualified Code(s): N17.9 - Acute kidney failure, unspecified
[2023-08-02 08:38] LABS: Hematocrit (blood only) 47.4 % (42.0-52.0); Hemoglobin 16.2 g/dl (14.0-18.0); Mean Corpuscular Hemoglobin 29.7 pg (25.0-34.0); Mean Corpuscular Hgb Conc 34.2 g/dL (32.0-36.0); Mean Platelet Volume 10.4 fL (9.4-12.4); Platelet Count 189 K/uL (130-400); RDW Coefficient of Variation 13.2 % (11.5-14.5); RDW Standard Deviation 41.3 fL (36.4-46.3); Red Blood Count 5.45 M/uL (4.70-6.10); White Blood Count 6.91 K/ul (4.8-10.8)
[2023-08-02 08:53] LABS: BUN Creatinine Ratio 14.6 (10-20); Calcium 8.8 mg/dl (8.6-10.3); Creatinine Clr Calc Pharmacy 61.7 ml/min; Est GFR (African American) 78.6 ml/min; Est GFR (Non-African American) 67.8 ml/min; Magnesium 1.7 mg/dl (1.7-2.4); Potassium 4.3 mmol/L (3.5-5.1)
--- NOTE | 2023-08-02 12:32 | Cardiology Progress Note ---
Date of Service August 02, 2023 Assessment & Plan (1) Paroxysmal atrial fibrillation with RVR: (2) Acute renal failure: (3) Bladder outlet obstruction: Plan IMPRESSION: 83 year old male with remote history of coronary artery disease and hypertension presented to [facility] emergency department due to abdominal pain and generalized weakness. Found to have bilateral hydronephrosis and hydroureter with acute urinary retention and ANSELMO with presenting creatinine of 4.3. Cardiology consulted due to new onset atrial fibrillation with RVR PLAN: AFIB RVR: -AFIB RVR with rates into the 160s from 07/28 1030pm until 07/29 (1208am). Now maintained SR with rates 70-80s with frequent PACs/PVCs -Initially treated with amiodarone gtt, -Patient with elevated CHADsVASC score of 4 (age 4, HTN, CAD) making him high risk for CVA in relation to PAF, however, he is at high risk for falls/bleeding due to cognitive decline and unsteady gait-- patient with possible frequent falls. At this time I am concerned that the risk of bleeding with anticoagulati on will outweigh the benefit. Recommend ongoing monitoring on telemetry for recurrent PAF-- DIsucssion will need to be made with with family/caregiver regrading risks/benefits of long-term AC prior to discharge. -Manage electrolytes, K goal of 4.0 and mag goal of 2.0-- replace as needed. Potassium supplemented this am. ANSELMO: Treat underlying cause, bladder outlet obstruction/bilateral hydronephrosis. Will defer to hospitalist team. Agree with avoiding nephrotoxic agents. Appreciate nephrology recommendations. 07/30/2023 No further atrial fibrillation. Arrhythmia likely incited by acute illness as above. We will hold further metoprolol tartrate given relatively lower heart rates and intermittent blocked PACs We will continue to follow 07/31/2023 Impression: 1. Paroxysmal atrial fibrillation: Likely incited by acute illness renal insufficiency, hypokalemia. Patient with spontaneous conversion to sinus rhythm. Baseline rhythm appears relatively slow with blocked PACs Will not continue AV node blocking medications or antiarrhythmic therapies. No recurrence of arrhythmias noted since acute illness improved. Poor anticoagulation candidate Additional potassium given today 08/01/2023, 08/02/2023 1. Paroxysmal atrial fibrillation: No recurrence in hospital since initial presentation, subsequent spontaneous conversion to sinus rhythm. Patient now with better mentation and cooperation and subsequent MRI demonstrates evidence of likely embolic stroke agree with anticoagulation with Eliquis. Would not initiate any AV renetta blocking medications or antiarrhythmic therapies given resting bradycardia Fall precaution Admission and Anticipated Discharge Date Admission Date: July 28, 2023 Subjective Patient seen and examined, chart, medications, telemetry reviewed Patient much more cooperative. No acute cardiac complaints No arrhythmia Physical Exam Constitutional: no acute distress Neck: normal visual inspection and trachea midline Respiratory: normal respiratory effort; no respiratory distress Auscultation: + diminished lung sounds; no rales, no rhonchi and no wheezes Cardiovascular: Rate/Rhythm: regular rate and regular rhythm Heart Sounds: normal S1, normal S2 and + murmur (+1/6 systolic murmur) Vessels: no JVD Extremities: no edema Gastrointestinal (Abdomen): Inspection/Auscultation: normal bowel sounds; abdomen not distended Percussion/Palpation: abdomen nontender Skin: no rashes, warm and dry Psychiatric: Orientation: alert, oriented to person and oriented to place Results & Data Vital Signs (Past 12 Hours) Vital Signs Temp Pulse Pulse Resp BP BP Pulse Ox 08/02/23 11:37 36.5 C 64 18 135/78 94 08/02/23 08:11 36.9 C 67 18 141/86 H 92 08/02/23 03:16 36.6 C 81 18 130/72 90 08/02/23 02:37 77 O2 Del Method 08/02/23 11:37 Room Air 08/02/23 08:11 Room Air 08/02/23 03:16 Room Air 08/02/23 02:37 Laboratory Results Laboratory Results - last 24 hr 08/01/23 08/02/23 08/02/23 16:33 07:42 07:55 WBC 6.91 RBC 5.45 Hgb 16.2 Hct 47.4 MCV 87.0 MCH 29.7 MCHC 34.2 RDW Std Deviation 41.3 RDW Coeff of Dangelo 13.2 Plt Count 189 MPV 10.4 Sodium 137 Potassium 4.3 Chloride 101 Carbon Dioxide 27 Anion Gap 9 BUN 15 Creatinine 1.03 Est Cr Clr Drug Dosing 61.7 Est GFR ( Amer) 78.6 Est GFR (Non-Af Amer) 67.8 BUN/Creatinine Ratio 14.6 Glucose 137 H POC Glucose 122 H 127 H Calcium 8.8 Phosphorus 3.0 Magnesium 1.7 08/02/23 11:24 WBC RBC Hgb Hct MCV MCH MCHC RDW Std Deviation RDW Coeff of Dangelo Plt Count MPV Sodium Potassium Chloride Carbon Dioxide Anion Gap BUN Creatinine Est Cr Clr Drug Dosing Est GFR ( Amer) Est GFR (Non-Af Amer) BUN/Creatinine Ratio Glucose POC Glucose 145 H Calcium Phosphorus Magnesium (2) Acute renal failure Acute renal failure type: unspecified Qualified Code(s): N17.9 - Acute kidney failure, unspecified
--- NOTE | 2023-08-02 14:44 | Pharmacy Report ---
Pharmacy Glycemic Short Note 2 - Date of Service August 02, 2023 - Glycemic Short BSG Results (Last 24 hours): 08/01/23 08/02/23 08/02/23 16:33 07:42 07:55 Glucose 137 H POC Glucose 122 H 127 H 08/02/23 11:24 Glucose POC Glucose 145 H OUTPATIENT ANTIDIABETIC REGIMEN: * reported non-compliance w/ metformin HbA1c: 8.6% (07/29/23) ASSESSMENT: 08/02: * Alexsander received 13 units of bolus insulin yesterday * Seems to be tolerating diet better per nursing documentation * No basal insulin required the past 3 days, will discontinue scaled order for HS Lantus * Novolog parameters seem to be adequately covering/correcting, continue current parameters 07/31: * Alexsander received no units of insulin yesterday, does not appear to have eaten much yesterday per nursing documentation * Fasting BSG slightly below goal range this AM, will continue small Lantus scale HS based on BSG * Difficult to assess Novolog efficacy, continue current parameters. 07/29: * DANGELO is an 83 year old male who presented to ED on 07/28/23 w/ feelings of general unwellness/weakness and polyuria * Found to have BSG of 358 mg/dL - responded well to IV insulin bolus. Patient also w/ suspected bladder outlet obstruction. * Hyperglycemic today in 200s. Will conservatively increase insulin regimen today and add overnight checks tonight. * Diet ordered. IV fluids (NSS + 20 KCl @100 mL/hr) infusing currently. PLAN FOR INPATIENT GLYCEMIC CONTROL: * Basal insulin * none required currently * Bolus insulin * NovoLog per scale ACHS or Q6hrs while NPO * Goal Range: Low 110 mg/dL - High 140 mg/dL * Correction Factor: 30 mg/dL/unit * Nutritional / Prandial insulin per carb ratio of 1 unit per 12 grams CHO consumed
[2023-08-02] MEDS ORDERED: MAGNESIUM SULFATE / D5W 1 GM/100 ML BAG IV ONE (15:58)
[2023-08-02] MEDS: TAMSULOSIN HCL 0.4 MG CAP PO SCH (22:20)
[2023-08-03] MEDS ORDERED: OLANZAPINE 2.5 MG TAB PO STA (00:20)
[2023-08-03 06:07] LABS: Hematocrit (blood only) 44.4 % (42.0-52.0); Hemoglobin 15.4 g/dl (14.0-18.0); Mean Corpuscular Hgb Conc 34.7 g/dL (32.0-36.0); Mean Corpuscular Volume 86.4 fL (80.0-100.0); Mean Platelet Volume 10.3 fL (9.4-12.4); Platelet Count 176 K/uL (130-400); RDW Coefficient of Variation 13.2 % (11.5-14.5); RDW Standard Deviation 41.4 fL (36.4-46.3); Red Blood Count 5.14 M/uL (4.70-6.10); White Blood Count 7.21 K/ul (4.8-10.8)
[2023-08-03 06:19] LABS: BUN Creatinine Ratio 17.8 (10-20); Calcium 8.4 mg/dl (8.6-10.3); Est GFR (African American) 80.5 ml/min; Est GFR (Non-African American) 69.4 ml/min; Magnesium 1.8 mg/dl (1.7-2.4); Phosphorus 3.2 mg/dl (2.5-4.9); Potassium 3.9 mmol/L (3.5-5.1)
[2023-08-03] MEDS: THIAMINE HCL 100 MG TAB PO SCH (08:11)
[2023-08-03] MEDS: FOLIC ACID 400 MCG TAB PO SCH (08:12)
[2023-08-03] MEDS: APIXABAN 5 MG TABLET PO SCH ×2 (08:12→19:33)
[2023-08-03] MEDS: DOCUSATE SODIUM 100 MG CAP PO SCH ×2 (08:12→19:34)
[2023-08-03] MEDS: ASPIRIN 81 MG ECTAB PO SCH (08:12)
[2023-08-03] MEDS: INSULIN ASPART PER UNIT CHARGE SC SCH ×4 (08:15→22:12)
[2023-08-03] MEDS: POLYETHYLENE (MIRALAX) 17 GM PACK PO SCH (08:21)
--- NOTE | 2023-08-03 08:42 | Hospitalist Progress Note ---
Date of Service August 03, 2023 Assessment & Plan (1) Acute metabolic encephalopathy: Plan: Intermittent confusion is likely a combination of history of heavy ETOH use, dementia and recent stroke. (2) Alcohol abuse with withdrawal: Plan: Resolved. Cont thiamine and folic acid. Combative behavior intermittently requiring Zyprexa. Possible contribution from underlying cognitive inhibition per records. Pt is not on 1:1 at this point (3) Acute embolic stroke: Plan: recent afib with RVR. Added apixaban. Cont supportive care measures. (4) Acute renal failure: Plan: Resolved. Likely related to a combination of post obstructive uropathy 2/2 BPH and AUR with dehydration in the setting of alcohol abuse. (5) Acute urinary retention: Plan: Bilateral hydronephrosis on CT and acute urinary retention likely contributing to ANSELMO. Creatinine (and confusion) improved with alicea in place. Evaluated by Urology. Cont Flomax for BPH. TOV in one week per urology at their office. (6) Paroxysmal atrial fibrillation with RVR: Plan: Initially presented with rapid ventricular response. Amio drip initiated and also oral metoprolol. Metoprolol stopped 2/2 lower heart rates and intermittent blocked PACs. Amio also stopped and he remains in sinus rhythm. Apixaban started as noted above. Avoid AV renetta agents per cardiology given resting bradycardia. He has had no further antiarrhythmic since acute illness. Phlebitis/ poss. cellulitis - erythema noted at R forearm, pt denies tenderness - discussed w/ RN - warm compress, will also start keflex - cont. to closely monitor (7) CAD (coronary artery disease): Plan: chronic, appears stable. h/o stent placement. Denies chest pain or SOB. HS trop is negative. (8) DMII (diabetes mellitus, type 2): Plan: chronic, uncontrolled. Noncompliant with medication. A1C is 8.6. DVT proph: heparin Full Code Dispo-cont telemetry. Home pending ability of family to provide 24 hour care. May need PT to re-evaluate given recent finding on acute stroke. Per CM he currently lives with his son who is not present 24/7 in the home and doesn't have any equipment or assistance at home. He doesn't cook and goes to the [employer] for dinner every day. Cont to identify proper support at home and until that time will cont hospitalization. CM involved - plan for [facility] Admission and Anticipated Discharge Date Admission Date: July 28, 2023 Subjective 83 yo alcoholic man with dementia presented with confusion. Found to be in new onset afib which converted to NSR. Persistent ataxic gait and confusion prompted MRI brain which revealed embolic appearing stroke. Placed on apixaban. Continues to be intermittently confused/combative at times. Overnight received zyprexa. Today he is more cooperative, worked with PT. Denies pain, chest pain, shortness of breath, or abd. pain or other issues. Tolerating PO. No further afib on telemetry. Review of Systems Review of Systems: All systems reviewed & are unremarkable except as noted in Subjective Physical Exam Physical Exam: CONSTITUTIONAL: WNWD, M in NAD EYES: normal conjunctivae, no scleral icterus ENT: external ear and nose normal, MMM NECK: supple RESPIRATORY: clear to auscultation bilaterally, no crackles, rales or wheezes, normal respiratory effort CARDIOVASCULAR: regular rate and rhythm, S1 and 2 heard without murmurs CHEST: inspection of chest normal GASTROINTESTINAL:soft, nontender, Nd, no guarding MUSCULOSKELETAL: head is normocephalic and atraumatic, neck supple, moves extremities, R forearm w/ erythema , not tender SKIN: warm and dry NEURO/PSYCH: alert cooperative, oriented to person only. Only answers some questions appropriately. normal speech, no tremor, moves extremities Results & Data Results & Data Vital Signs (Past 12 Hours) Vital Signs Temp Pulse Pulse Resp BP Pulse Ox O2 Del Method 08/03/23 08:24 36.7 C 101 H 18 110/75 92 Room Air 08/03/23 04:01 36.8 C 68 18 130/71 94 Room Air 08/03/23 00:05 72 08/02/23 23:02 36.8 C 80 20 143/77 H 95 Room Air Laboratory Results 08/03/23 08/03/23 08/02/23 Range/Units 07:19 05:35 20:33 WBC 7.21 (4.8-10.8) K/ul RBC 5.14 (4.70-6.10) M/uL Hgb 15.4 (14.0-18.0) g/dl Hct 44.4 (42.0-52.0) % MCV 86.4 (80.0-100.0) fL MCH 30.0 (25.0-34.0) pg MCHC 34.7 (32.0-36.0) g/dL RDW Std Deviation 41.4 (36.4-46.3) fL RDW Coeff of Dangelo 13.2 (11.5-14.5) % Plt Count 176 (130-400) K/uL MPV 10.3 (9.4-12.4) fL Sodium 135 L (136-145) mmol/L Potassium 3.9 (3.5-5.1) mmol/L Chloride 100 (98-107) mmol/L Carbon Dioxide 27 (21-32) mmol/L Anion Gap 8 (3-11) BUN 18 (6-23) mg/dl Creatinine 1.01 (0.6-1.4) mg/dl Est Cr Clr Drug Dosing 63.0 ml/min Est GFR ( Amer) 80.5 ml/min Est GFR (Non-Af Amer) 69.4 ml/min BUN/Creatinine Ratio 17.8 (10-20) Glucose 170 H (70-99(Fasting)) mg/dl POC Glucose 146 H 115 H (70-99) mg/dl Calcium 8.4 L (8.6-10.3) mg/dl Phosphorus 3.2 (2.5-4.9) mg/dl Magnesium 1.8 (1.7-2.4) mg/dl 08/02/23 08/02/23 08/02/23 Range/Units 16:38 11:24 07:55 WBC (4.8-10.8) K/ul RBC (4.70-6.10) M/uL Hgb (14.0-18.0) g/dl Hct (42.0-52.0) % MCV (80.0-100.0) fL MCH (25.0-34.0) pg MCHC (32.0-36.0) g/dL RDW Std Deviation (36.4-46.3) fL RDW Coeff of Dangelo (11.5-14.5) % Plt Count (130-400) K/uL MPV (9.4-12.4) fL Sodium 137 (136-145) mmol/L Potassium 4.3 (3.5-5.1) mmol/L Chloride 101 (98-107) mmol/L Carbon Dioxide 27 (21-32) mmol/L Anion Gap 9 (3-11) BUN 15 (6-23) mg/dl Creatinine 1.03 (0.6-1.4) mg/dl Est Cr Clr Drug Dosing 61.7 ml/min Est GFR ( Amer) 78.6 ml/min Est GFR (Non-Af Amer) 67.8 ml/min BUN/Creatinine Ratio 14.6 (10-20) Glucose 137 H (70-99(Fasting)) mg/dl POC Glucose 121 H 145 H (70-99) mg/dl Calcium 8.8 (8.6-10.3) mg/dl Phosphorus 3.0 (2.5-4.9) mg/dl Magnesium 1.7 (1.7-2.4) mg/dl Medications Administered Current Inpatient Medications Acetaminophen (Acetaminophen 325 Mg Tab) 650 mg PO Q4H PRN PRN Reason: pain/fever Stop: 08/27/23 21:05 Apixaban (Apixaban 5 Mg Tablet) 5 mg PO BID [place] Stop: 08/31/23 10:14 Last Admin: 08/03/23 08:12 Dose: 5 mg Aspirin (Aspirin 81 Mg Ectab) 81 mg PO DAILY [place] Stop: 08/28/23 08:59 Last Admin: 08/03/23 08:12 Dose: 81 mg Dextrose (Dextrose 50% 50 Ml Syringe) 25 - 50 ml IV UD PRN; Protocol PRN Reason: Hypoglycemia Protocol Stop: 08/27/23 21:05 Docusate Sodium (Docusate Sodium 100 Mg Cap) 100 mg PO BID [place] Stop: 08/28/23 08:59 Last Admin: 08/03/23 08:12 Dose: 100 mg Folic Acid (Folic Acid 400 Mcg Tab) 400 mcg PO QAM [place] Stop: 08/28/23 08:59 Last Admin: 08/03/23 08:12 Dose: 400 mcg Glucagon (Glucagon For Inj 1 Mg Vial) 1 mg SQ UD PRN; Protocol PRN Reason: Hypoglycemia Protocol Stop: 08/27/23 21:05 Glucose (Glucose 10 Tab/Tube) 4 - 8 tab PO UD PRN; Protocol PRN Reason: Hypoglycemia Treatment Stop: 08/27/23 21:05 Glucose (Glucose 40% Gel 15 Gm Tube) 15 - 30 gm PO UD PRN; Protocol PRN Reason: Hypoglycemia Protocol Stop: 12/31/23 21:05 Insulin Aspart (Insulin Aspart Per Unit Charge) 0 units SC ACHS [place] Stop: 08/27/23 21:05 Last Admin: 08/03/23 08:15 Dose: 3 units Miscellaneous (Carbohydrates For Hypoglycemia ) 15 - 30 gm PO UD PRN PRN Reason: Hypoglycemia Protocol Stop: 08/27/23 21:05 Miscellaneous Information (Pharmacy Glycemic Mgmt Consult) 1 each N/A UD PRN PRN Reason: Consult Stop: 08/27/23 21:05 Olanzapine (Olanzapine 10 Mg/2.1 Ml Sdv) 2.5 mg IM Q6H PRN PRN Reason: Agitation Stop: 08/27/23 20:44 Last Admin: 07/30/23 22:09 Dose: 2.5 mg Ondansetron HCl (Ondansetron Inj 2 Mg/Ml 2 Ml Vial) 4 mg IV Q6H PRN PRN Reason: Nausea Stop: 08/27/23 21:05 Polyethylene Glycol (Polyethylene (Miralax) 17 Gm Pack) 17 gm PO DAILY PRN PRN Reason: Constipation Stop: 08/27/23 21:05 Polyethylene Glycol (Polyethylene (Miralax) 17 Gm Pack) 17 gm PO DAILY [place] Stop: 08/28/23 08:59 Last Admin: 08/03/23 08:21 Dose: 17 gm Tamsulosin HCl (Tamsulosin Hcl 0.4 Mg Cap) 0.4 mg PO HS [facility] Stop: 08/28/23 20:59 Last Admin: 08/02/23 22:20 Dose: 0.4 mg Thiamine HCl (Thiamine Hcl 100 Mg Tab) 100 mg PO QAM [place] Stop: 08/28/23 08:59 Last Admin: 08/03/23 08:11 Dose: 100 mg (4) Acute renal failure Acute renal failure type: unspecified Qualified Code(s): N17.9 - Acute kidney failure, unspecified
--- NOTE | 2023-08-03 13:26 | Pharmacy Report ---
Pharmacy Glycemic Short Note 2 - Date of Service August 03, 2023 - Glycemic Short BSG Results (Last 24 hours): 08/02/23 08/02/23 08/03/23 16:38 20:33 05:35 Glucose 170 H POC Glucose 121 H 115 H 08/03/23 08/03/23 07:19 11:43 Glucose POC Glucose 146 H 157 H OUTPATIENT ANTIDIABETIC REGIMEN: * reported non-compliance w/ metformin HbA1c: 8.6% (07/29/23) ASSESSMENT: 08/03: * Patient received total 13 units of insulin yesterday all of which was bolus. * Fasting BSG today was 170 mg/dl . A small dose of basal Lantus 5 units added for HS for better fasting BSG. * Novolog parameters continued the same. * Renal function has improved since admission. 08/02: * Alexsander received 13 units of bolus insulin yesterday * Seems to be tolerating diet better per nursing documentation * No basal insulin required the past 3 days, will discontinue scaled order for HS Lantus * Novolog parameters seem to be adequately covering/correcting, continue current parameters 07/31: * Alexsander received no units of insulin yesterday, does not appear to have eaten much yesterday per nursing documentation * Fasting BSG slightly below goal range this AM, will continue small Lantus scale HS based on BSG * Difficult to assess Novolog efficacy, continue current parameters. 07/29: * DANGELO is an 83 year old male who presented to ED on 07/28/23 w/ feelings of general unwellness/weakness and polyuria * Found to have BSG of 358 mg/dL - responded well to IV insulin bolus. Patient also w/ suspected bladder outlet obstruction. * Hyperglycemic today in 200s. Will conservatively increase insulin regimen today and add overnight checks tonight. * Diet ordered. IV fluids (NSS + 20 KCl @100 mL/hr) infusing currently. PLAN FOR INPATIENT GLYCEMIC CONTROL: * Basal insulin * Lantus 5 units SQ HS * Bolus insulin * NovoLog per scale ACHS or Q6hrs while NPO * Goal Range: Low 110 mg/dL - High 140 mg/dL * Correction Factor: 30 mg/dL/unit * Nutritional / Prandial insulin per carb ratio of 1 unit per 12 grams CHO consumed
[2023-08-03] MEDS ORDERED: MAGNESIUM SULFATE / D5W 1 GM/100 ML BAG IV ONE (14:31)
[2023-08-03] MEDS: cephALEXin 500 MG CAP PO SCH ×2 (16:37→19:33)
[2023-08-03] MEDS: ADVANCED PROBIOTIC 1250 MG CAPSULE PO SCH (16:37)
[2023-08-03] MEDS: TAMSULOSIN HCL 0.4 MG CAP PO SCH (19:35)
[2023-08-03] MEDS ORDERED: LANTUS PER UNIT CHARGE SC SCH (21:00)
[2023-08-04] MEDS: MELATONIN 3 MG TAB PO PRN (01:17)
[2023-08-04 05:52] LABS: Hematocrit (blood only) 44.7 % (42.0-52.0); Hemoglobin 15.3 g/dl (14.0-18.0); Mean Corpuscular Hemoglobin 29.7 pg (25.0-34.0); Mean Corpuscular Hgb Conc 34.2 g/dL (32.0-36.0); Mean Corpuscular Volume 86.8 fL (80.0-100.0); Mean Platelet Volume 10.2 fL (9.4-12.4); Platelet Count 168 K/uL (130-400); RDW Coefficient of Variation 13.2 % (11.5-14.5); RDW Standard Deviation 41.8 fL (36.4-46.3); Red Blood Count 5.15 M/uL (4.70-6.10); White Blood Count 6.95 K/ul (4.8-10.8)
[2023-08-04 06:03] LABS: BUN Creatinine Ratio 17.2 (10-20); Calcium 8.5 mg/dl (8.6-10.3); Creatinine Clr Calc Pharmacy 64.2 ml/min; Est GFR (African American) 82.4 ml/min; Est GFR (Non-African American) 71.1 ml/min; Magnesium 1.9 mg/dl (1.7-2.4); Phosphorus 3.1 mg/dl (2.5-4.9); Potassium 4.3 mmol/L (3.5-5.1)
--- NOTE | 2023-08-04 07:15 | Hospitalist Progress Note ---
Date of Service August 04, 2023 Assessment & Plan (1) Acute metabolic encephalopathy: Plan: Intermittent confusion is likely a combination of history of heavy ETOH use, dementia and recent stroke. (2) Alcohol abuse with withdrawal: Plan: Resolved. Cont thiamine and folic acid. Combative behavior intermittently requiring Zyprexa. Possible contribution from underlying cognitive inhibition per records. Pt is not on 1:1 at this point (3) Acute embolic stroke: Plan: recent afib with RVR. Added apixaban. Cont supportive care measures. (4) Acute renal failure: Plan: Resolved. Likely related to a combination of post obstructive uropathy 2/2 BPH and AUR with dehydration in the setting of alcohol abuse. (5) Acute urinary retention: Plan: Bilateral hydronephrosis on CT and acute urinary retention likely contributing to ANSELMO. Creatinine (and confusion) improved with alicea in place. Evaluated by Urology. Cont Flomax for BPH. TOV in one week per urology at their office. (6) Paroxysmal atrial fibrillation with RVR: Plan: NSVT - Nonsustained ventricular tachycardia with overall preserved LV systolic function Sinus with blocked PACs, junctional rhythm Initially presented with Afib with rapid ventricular response. Amio drip initiated and also oral metoprolol. Metoprolol stopped 2/2 lower heart rates and intermittent blocked PACs. Amio also stopped and he remained in sinus rhythm. Apixaban started as noted above. Plan was to avoid AV renetta agents per cardiology given resting bradycardia. Overnight pt had episode of 22 beat VT, reportedly asymptomatic. Discussed with cardiology and will start on amiodarone. pt may need pacer in the future. Phlebitis/ poss. cellulitis - erythema noted at R forearm, pt denies tenderness - discussed w/ RN - warm compress, also started keflex - cont. to closely monitor, improved (7) CAD (coronary artery disease): Plan: chronic, appears stable. h/o stent placement. Denies chest pain or SOB. HS trop is negative. (8) DMII (diabetes mellitus, type 2): Plan: chronic, uncontrolled. Noncompliant with medication. A1C is 8.6. DVT proph: eliquis Full Code Dispo-cont telemetry. Home pending ability of family to provide 24 hour care. May need PT to re-evaluate given recent finding on acute stroke. Per CM he currently lives with his son who is not present 24/7 in the home and doesn't have any equipment or assistance at home. He doesn't cook and goes to the [employer] for dinner every day. Cont to identify proper support at home and until that time will cont hospitalization. CM involved - plan for [facility] Admission and Anticipated Discharge Date Admission Date: July 28, 2023 Subjective 83 yo alcoholic man with dementia presented with confusion. Found to be in new onset afib which converted to NSR. Persistent ataxic gait and confusion prompted MRI brain which revealed embolic appearing stroke. Placed on apixaban. Continues to be intermittently confused/combative at times. Today he is more cooperative. Denies pain, chest pain,palpitations, shortness of breath, or abd. pain or other issues. Tolerating PO. Episode of 22 beat VT overnight noted on tele - pt was asymptomatic reportedly. Discussed with cardiology today. Plan to start amiodarone, cont. eliquis. pt may need a pacer in the future. Will monitor ecg. Review of Systems 2 Review of Systems: All systems reviewed & are unremarkable except as noted in Subjective Physical Exam Physical Exam: CONSTITUTIONAL: WNWD, M in NAD EYES: normal conjunctivae, no scleral icterus ENT: external ear and nose normal, MMM NECK: supple RESPIRATORY: clear to auscultation bilaterally, no crackles, rales or wheezes, normal respiratory effort CARDIOVASCULAR: regular rate and rhythm, S1 and 2 heard without murmurs CHEST: inspection of chest normal GASTROINTESTINAL:soft, nontender, Nd, no guarding MUSCULOSKELETAL: head is normocephalic and atraumatic, neck supple, moves extremities, R forearm w/ erythema (improved) , not tender SKIN: warm and dry NEURO/PSYCH: alert cooperative. Only answers some questions appropriately. normal speech, no tremor, moves extremities Results & Data Results & Data Vital Signs (Past 12 Hours) Vital Signs Temp Pulse Pulse Resp BP Pulse Ox O2 Del Method 08/04/23 05:06 67 132/67 08/04/23 04:57 163 H 08/04/23 00:00 77 08/03/23 22:50 36.9 C 85 18 133/69 95 Room Air Laboratory Results 08/04/23 08/03/23 08/03/23 Range/Units 05:34 22:11 20:25 WBC 6.95 (4.8-10.8) K/ul RBC 5.15 (4.70-6.10) M/uL Hgb 15.3 (14.0-18.0) g/dl Hct 44.7 (42.0-52.0) % MCV 86.8 (80.0-100.0) fL MCH 29.7 (25.0-34.0) pg MCHC 34.2 (32.0-36.0) g/dL RDW Std Deviation 41.8 (36.4-46.3) fL RDW Coeff of Dangelo 13.2 (11.5-14.5) % Plt Count 168 (130-400) K/uL MPV 10.2 (9.4-12.4) fL Sodium 135 L (136-145) mmol/L Potassium 4.3 (3.5-5.1) mmol/L Chloride 101 (98-107) mmol/L Carbon Dioxide 26 (21-32) mmol/L Anion Gap 8 (3-11) BUN 17 (6-23) mg/dl Creatinine 0.99 (0.6-1.4) mg/dl Est Cr Clr Drug Dosing 64.2 ml/min Est GFR ( Amer) 82.4 ml/min Est GFR (Non-Af Amer) 71.1 ml/min BUN/Creatinine Ratio 17.2 (10-20) Glucose 155 H (70-99(Fasting)) mg/dl POC Glucose 135 H 182 H (70-99) mg/dl Calcium 8.5 L (8.6-10.3) mg/dl Phosphorus 3.1 (2.5-4.9) mg/dl Magnesium 1.9 (1.7-2.4) mg/dl 08/03/23 08/03/23 08/03/23 Range/Units 16:34 11:43 07:19 WBC (4.8-10.8) K/ul RBC (4.70-6.10) M/uL Hgb (14.0-18.0) g/dl Hct (42.0-52.0) % MCV (80.0-100.0) fL MCH (25.0-34.0) pg MCHC (32.0-36.0) g/dL RDW Std Deviation (36.4-46.3) fL RDW Coeff of Dangelo (11.5-14.5) % Plt Count (130-400) K/uL MPV (9.4-12.4) fL Sodium (136-145) mmol/L Potassium (3.5-5.1) mmol/L Chloride (98-107) mmol/L Carbon Dioxide (21-32) mmol/L Anion Gap (3-11) BUN (6-23) mg/dl Creatinine (0.6-1.4) mg/dl Est Cr Clr Drug Dosing ml/min Est GFR ( Amer) ml/min Est GFR (Non-Af Amer) ml/min BUN/Creatinine Ratio (10-20) Glucose (70-99(Fasting)) mg/dl POC Glucose 162 H 157 H 146 H (70-99) mg/dl Calcium (8.6-10.3) mg/dl Phosphorus (2.5-4.9) mg/dl Magnesium (1.7-2.4) mg/dl Medications Administered Current Inpatient Medications Acetaminophen (Acetaminophen 325 Mg Tab) 650 mg PO Q4H PRN PRN Reason: pain/fever Stop: 08/27/23 21:05 Apixaban (Apixaban 5 Mg Tablet) 5 mg PO BID [facility] Stop: 08/31/23 10:14 Last Admin: 08/03/23 19:33 Dose: 5 mg Aspirin (Aspirin 81 Mg Ectab) 81 mg PO DAILY [facility] Stop: 08/28/23 08:59 Last Admin: 08/03/23 08:12 Dose: 81 mg Cephalexin HCl (Cephalexin 500 Mg Cap) 500 mg PO QID [place]; Protocol Stop: 08/10/23 16:59 Last Admin: 08/03/23 19:33 Dose: 500 mg Dextrose (Dextrose 50% 50 Ml Syringe) 25 - 50 ml IV UD PRN; Protocol PRN Reason: Hypoglycemia Protocol Stop: 08/27/23 21:05 Docusate Sodium (Docusate Sodium 100 Mg Cap) 100 mg PO BID [facility] Stop: 08/28/23 08:59 Last Admin: 08/03/23 19:34 Dose: 100 mg Folic Acid (Folic Acid 400 Mcg Tab) 400 mcg PO QAM [facility] Stop: 08/28/23 08:59 Last Admin: 08/03/23 08:12 Dose: 400 mcg Glucagon (Glucagon For Inj 1 Mg Vial) 1 mg SQ UD PRN; Protocol PRN Reason: Hypoglycemia Protocol Stop: 08/27/23 21:05 Glucose (Glucose 10 Tab/Tube) 4 - 8 tab PO UD PRN; Protocol PRN Reason: Hypoglycemia Treatment Stop: 08/27/23 21:05 Glucose (Glucose 40% Gel 15 Gm Tube) 15 - 30 gm PO UD PRN; Protocol PRN Reason: Hypoglycemia Protocol Stop: 08/27/23 21:05 Insulin Aspart (Insulin Aspart Per Unit Charge) 0 units SC ACHS [place] Stop: 08/27/23 21:05 Last Admin: 08/03/23 22:12 Dose: Not Given Insulin Glargine (Lantus Per Unit Charge) 5 units SC HS [place] Stop: 09/02/23 20:59 Last Admin: 08/03/23 22:13 Dose: 5 units Lactobacillus Acidophilus (Advanced Probiotic 1250 Mg Capsule) 2 cap PO DAILY [place] Stop: 09/02/23 14:29 Last Admin: 08/03/23 16:37 Dose: 2 cap Magnesium Oxide (Magnesium Oxide 400 Mg Tab) 400 mg PO QAM [facility] Stop: 09/03/23 08:59 Melatonin (Melatonin 3 Mg Tab) 3 mg PO HS PRN PRN Reason: Sleep Stop: 09/03/23 00:44 Miscellaneous (Carbohydrates For Hypoglycemia ) 15 - 30 gm PO UD PRN PRN Reason: Hypoglycemia Protocol Stop: 08/27/23 21:05 Miscellaneous Information (Pharmacy Glycemic Mgmt Consult) 1 each N/A UD PRN PRN Reason: Consult Stop: 08/27/23 21:05 Olanzapine (Olanzapine 10 Mg/2.1 Ml Sdv) 2.5 mg IM Q6H PRN PRN Reason: Agitation Stop: 08/27/23 20:44 Last Admin: 07/30/23 22:09 Dose: 2.5 mg Ondansetron HCl (Ondansetron Inj 2 Mg/Ml 2 Ml Vial) 4 mg IV Q6H PRN PRN Reason: Nausea Stop: 08/27/23 21:05 Polyethylene Glycol (Polyethylene (Miralax) 17 Gm Pack) 17 gm PO DAILY PRN PRN Reason: Constipation Stop: 08/27/23 21:05 Polyethylene Glycol (Polyethylene (Miralax) 17 Gm Pack) 17 gm PO DAILY [place] Stop: 08/28/23 08:59 Last Admin: 08/03/23 08:21 Dose: 17 gm Tamsulosin HCl (Tamsulosin Hcl 0.4 Mg Cap) 0.4 mg PO [facility] Stop: 08/28/23 20:59 Last Admin: 08/03/23 19:35 Dose: 0.4 mg Thiamine HCl (Thiamine Hcl 100 Mg Tab) [facility] Stop: 08/28/23 08:59 Last Admin: 08/03/23 08:11 Dose: 100 mg (4) Acute renal failure Acute renal failure type: unspecified Qualified Code(s): N17.9 - Acute kidney failure, unspecified
[2023-08-04] MEDS ORDERED: MAGNESIUM OXIDE 400 MG TAB PO SCH (09:00)
[2023-08-04] MEDS: FOLIC ACID 400 MCG TAB PO SCH (09:19)
[2023-08-04] MEDS: THIAMINE HCL 100 MG TAB PO SCH (09:19)
[2023-08-04] MEDS: cephALEXin 500 MG CAP PO SCH ×4 (09:19→20:49)
[2023-08-04] MEDS: APIXABAN 5 MG TABLET PO SCH ×2 (09:19→20:48)
[2023-08-04] MEDS: ADVANCED PROBIOTIC 1250 MG CAPSULE PO SCH (09:19)
[2023-08-04] MEDS: DOCUSATE SODIUM 100 MG CAP PO SCH ×2 (09:19→20:49)
[2023-08-04] MEDS: ASPIRIN 81 MG ECTAB PO SCH (09:19)
[2023-08-04] MEDS: INSULIN ASPART PER UNIT CHARGE SC SCH ×4 (09:20→20:50)
[2023-08-04] MEDS: POLYETHYLENE (MIRALAX) 17 GM PACK PO SCH (09:28)
[2023-08-04] MEDS ORDERED: AMIODARONE 200 MG TAB PO ONE (13:39)
--- NOTE | 2023-08-04 13:44 | Cardiology Progress Note ---
Date of Service August 04, 2023 Assessment & Plan (1) Paroxysmal atrial fibrillation with RVR: (2) Acute renal failure: (3) Bladder outlet obstruction: Plan IMPRESSION: 83 year old male with remote history of coronary artery disease and hypertension presented to [facility] emergency department due to abdominal pain and generalized weakness. Found to have bilateral hydronephrosis and hydroureter with acute urinary retention and ANSELMO with presenting creatinine of 4.3. Cardiology consulted due to new onset atrial fibrillation with RVR PLAN: AFIB RVR: -AFIB RVR with rates into the 160s from 07/28 1030pm until 07/29 (1208am). Now maintained SR with rates 70-80s with frequent PACs/PVCs -Initially treated with amiodarone gtt, -Patient with elevated CHADsVASC score of 4 (age 4, HTN, CAD) making him high risk for CVA in relation to PAF, however, he is at high risk for falls/bleeding due to cognitive decline and unsteady gait-- patient with possible frequent falls. At this time I am concerned that the risk of bleeding with anticoagulati on will outweigh the benefit. Recommend ongoing monitoring on telemetry for recurrent PAF-- DIsucssion will need to be made with with family/caregiver regrading risks/benefits of long-term AC prior to discharge. -Manage electrolytes, K goal of 4.0 and mag goal of 2.0-- replace as needed. Potassium supplemented this am. ANSELMO: Treat underlying cause, bladder outlet obstruction/bilateral hydronephrosis. Will defer to hospitalist team. Agree with avoiding nephrotoxic agents. Appreciate nephrology recommendations. 07/30/2023 No further atrial fibrillation. Arrhythmia likely incited by acute illness as above. We will hold further metoprolol tartrate given relatively lower heart rates and intermittent blocked PACs We will continue to follow 07/31/2023 Impression: 1. Paroxysmal atrial fibrillation: Likely incited by acute illness renal insufficiency, hypokalemia. Patient with spontaneous conversion to sinus rhythm. Baseline rhythm appears relatively slow with blocked PACs Will not continue AV node blocking medications or antiarrhythmic therapies. No recurrence of arrhythmias noted since acute illness improved. Poor anticoagulation candidate Additional potassium given today 08/01/2023, 08/02/2023 1. Paroxysmal atrial fibrillation: No recurrence in hospital since initial presentation, subsequent spontaneous conversion to sinus rhythm. Patient now with better mentation and cooperation and subsequent MRI demonstrates evidence of likely embolic stroke agree with anticoagulation with Eliquis. Would not initiate any AV renetta blocking medications or antiarrhythmic therapies given resting bradycardia Fall precaution 08/04/2023 1. Paroxysmal atrial fibrillation 2. Nonsustained ventricular tachycardia with overall preserved LV systolic function 3. Sinus with blocked PACs, junctional rhythm Plan: Continue anticoagulation with Eliquis. Discussed with patient we will begin amiodarone 200 mg daily for both atrial and ventricular arrhythmia. There remains a possibility through use he may ultimately require pacemaker EKG ordered for a.m. and daily Admission and Anticipated Discharge Date Admission Date: July 28, 2023 Subjective Patient seen and examined, chart, medications, telemetry reviewed Patient denies any specific cardiac or noncardiac complaints. Telemetry notes 22 beat run of nonsustained VT last evening Patient unaware No complaints currently Physical Exam Constitutional: + altered mental status; no acute distre ss Neck: normal visual inspection and trachea midline Respiratory: normal respiratory effort; no respiratory distress Auscultation: + diminished lung sounds; no rales, no rhonchi and no wheezes Cardiovascular: Rate/Rhythm: regular rate and regular rhythm Heart Sounds: normal S1, normal S2 and + murmur (+1/6 systolic murmur) Vessels: no JVD Extremities: no edema Gastrointestinal (Abdomen): Inspection/Auscultation: normal bowel sounds; abdomen not distended Percussion/Palpation: abdomen nontender Skin: no rashes, warm and dry Psychiatric: Orientation: alert, oriented to person and oriented to place Results & Data Vital Signs (Past 12 Hours) Vital Signs Temp Pulse Pulse Resp BP BP Pulse Ox 08/04/23 11:51 36.5 C 76 18 125/76 90 08/04/23 07:25 36.6 C 72 18 139/83 94 08/04/23 05:55 65 08/04/23 05:06 67 132/67 08/04/23 04:57 163 H O2 Del Method 08/04/23 11:51 Room Air 08/04/23 07:25 Room Air 08/04/23 05:55 08/04/23 05:06 08/04/23 04:57 Laboratory Results Laboratory Results - last 24 hr 08/03/23 08/03/23 08/03/23 16:34 20:25 22:11 WBC RBC Hgb Hct MCV MCH MCHC RDW Std Deviation RDW Coeff of Dangelo Plt Count MPV Sodium Potassium Chloride Carbon Dioxide Anion Gap BUN Creatinine Est Cr Clr Drug Dosing Est GFR ( Amer) Est GFR (Non-Af Amer) BUN/Creatinine Ratio Glucose POC Glucose 162 H 182 H 135 H Calcium Phosphorus Magnesium 08/04/23 08/04/23 08/04/23 05:34 07:21 11:44 WBC 6.95 RBC 5.15 Hgb 15.3 Hct 44.7 MCV 86.8 MCH 29.7 MCHC 34.2 RDW Std Deviation 41.8 RDW Coeff of Dangelo 13.2 Plt Count 168 MPV 10.2 Sodium 135 L Potassium 4.3 Chloride 101 Carbon Dioxide 26 Anion Gap 8 BUN 17 Creatinine 0.99 Est Cr Clr Drug Dosing 64.2 Est GFR ( Amer) 82.4 Est GFR (Non-Af Amer) 71.1 BUN/Creatinine Ratio 17.2 Glucose 155 H POC Glucose 144 H 150 H Calcium 8.5 L Phosphorus 3.1 Magnesium 1.9 (2) Acute renal failure Acute renal failure type: unspecified Qualified Code(s): N17.9 - Acute kidney failure, unspecified
[2023-08-04] MEDS: OLANZapine 10 MG/2.1 ML SDV IM PRN (18:36)
[2023-08-04] MEDS ORDERED: OLANZapine 10 MG/2.1 ML SDV IM STA (19:26)
[2023-08-04] MEDS: LANTUS PER UNIT CHARGE SC SCH (20:48)
[2023-08-04] MEDS: TAMSULOSIN HCL 0.4 MG CAP PO SCH (20:49)
--- NOTE | 2023-08-05 07:13 | Electrocardiogram Report ---
Test Reason : Blood Pressure : / mmHG Vent. Rate : 083 BPM Atrial Rate : 083 BPM P-R Int : 128 ms QRS Dur : 084 ms QT Int : 386 ms P-R-T Axes : 000 028 124 degrees QTc Int : 453 ms Sinus rhythm with Premature atrial complexes Nonspecific ST and T wave abnormality Abnormal ECG When compared with ECG of 29-JUL-2023 07:29, No significant change was found Confirmed by Ronni Herrera ([id number]) on 08/05/2023 7:12:23 AM Referred By: REFERRED SELF Confirmed By:Peter Herrera
--- NOTE | 2023-08-05 07:36 | Hospitalist Progress Note ---
Date of Service August 05, 2023 Assessment & Plan (1) Acute metabolic encephalopathy: Plan: Intermittent confusion is likely a combination of history of heavy ETOH use, dementia and recent stroke. (2) Alcohol abuse with withdrawal: Plan: Resolved. Cont thiamine and folic acid. Combative behavior intermittently requiring Zyprexa. Possible contribution from underlying cognitive inhibition per records. Pt is not on 1:1 at this point. however required zyprexa last evening. (3) Acute embolic stroke: Plan: recent afib with RVR. Added apixaban. Cont supportive care measures. (4) Acute renal failure: Plan: Resolved. Likely related to a combination of post obstructive uropathy 2/2 BPH and AUR with dehydration in the setting of alcohol abuse. (5) Acute urinary retention: Plan: Bilateral hydronephrosis on CT and acute urinary retention likely contributing to ANSELMO. Creatinine (and confusion) improved with alicea in place. Evaluated by Urology. Cont Flomax for BPH. TOV in one week per urology at their office. (6) Paroxysmal atrial fibrillation with RVR: Plan: NSVT - Nonsustained ventricular tachycardia with overall preserved LV systolic function Sinus with blocked PACs, junctional rhythm Initially presented with Afib with rapid ventricular response. Amio drip initiated and also oral metoprolol. Metoprolol stopped 2/2 lower heart rates and intermittent blocked PACs. Amio also stopped and he remained in sinus rhythm. Apixaban started as noted above. Plan was to avoid AV renetta agents per cardiology given resting bradycardia. However later in his hospital course pt had episode of 22 beat VT, reportedly asymptomatic. Discussed with cardiology and was started on amiodarone (08/04/23). pt may need pacer in the future. Phlebitis/ poss. cellulitis - erythema noted at R forearm, pt denies tenderness - discussed w/ RN - warm compress, also started keflex - cont. to closely monitor, improved (7) CAD (coronary artery disease): Plan: chronic, appears stable. h/o stent placement. Denies chest pain or SOB. HS trop is negative. (8) DMII (diabetes mellitus, type 2): Plan: chronic, uncontrolled. Noncompliant with medication. A1C is 8.6. DVT proph: eliquis Full Code Dispo-cont telemetry. Home pending ability of family to provide 24 hour care. May need PT to re-evaluate given recent finding on acute stroke. Per CM he currently lives with his son who is not present 20/03 in the home and doesn't have any equipment or assistance at home. He doesn't cook and goes to the [employer] for dinner every day. Cont to identify proper support at home and until that time will cont hospitalization. CM involved - plan for [facility] Admission and Anticipated Discharge Date Admission Date: July 28, 2023 Subjective 83 yo alcoholic man with dementia presented with confusion. Found to be in new onset afib which converted to NSR. Persistent ataxic gait and confusion prompted MRI brain which revealed embolic appearing stroke. Placed on apixaban. Continues to be intermittently confused/combative at times. He is cooperative with me today however last evening required zyprexa and restraints per manager staffing. Denies pain, chest pain,palpitations, shortness of breath, or abd. pain or other issues. Cardiology following - pt was started on amiodarone yesterday Review of Systems Review of Systems: All systems reviewed & are unremarkable except as noted in Subjective Physical Exam Physical Exam: CONSTITUTIONAL: WNWD, M in NAD EYES: normal conjunctivae, no scleral icterus ENT: external ear and nose normal, MMM NECK: supple RESPIRATORY: clear to auscultation bilaterally, no crackles, rales or wheezes, normal respiratory effort CARDIOVASCULAR: regular rate and rhythm, S1 and 2 heard without murmurs CHEST: inspection of chest normal GASTROINTESTINAL:soft, nontender, Nd, no guarding MUSCULOSKELETAL: head is normocephalic and atraumatic, neck supple, moves extremities, R forearm w/ erythema (improved) , not tender SKIN: warm and dry NEURO/PSYCH: alert cooperative. Only answers some questions appropriately. normal speech, no tremor, moves extremities Results & Data Results & Data Vital Signs (Past 12 Hours) Vital Signs Temp Pulse Pulse Resp BP Pulse Ox O2 Del Method 08/05/23 06:21 57 L 08/05/23 02:38 36.6 C 83 20 174/94 H 94 Room Air 08/04/23 23:49 36.7 C 69 18 165/97 H 94 Room Air 08/04/23 22:35 67 Laboratory Results 08/05/23 08/05/23 08/04/23 Range/Units 07:32 06:31 20:27 Sodium 137 (136-145) mmol/L Potassium 4.1 (3.5-5.1) mmol/L Chloride 102 (98-107) mmol/L Carbon Dioxide 27 (21-32) mmol/L Anion Gap 8 (3-11) BUN 16 (6-23) mg/dl Creatinine 0.89 (0.6-1.4) mg/dl Est Cr Clr Drug Dosing 71.4 ml/min Est GFR ( Amer) 92.9 ml/min Est GFR (Non-Af Amer) 80.2 ml/min BUN/Creatinine Ratio 18.0 (10-20) Glucose 150 H (70-99(Fasting)) mg/dl POC Glucose 155 H 137 H (70-99) mg/dl Calcium 8.9 (8.6-10.3) mg/dl Phosphorus 3.4 (2.5-4.9) mg/dl Magnesium 1.8 (1.7-2.4) mg/dl 08/04/23 08/04/23 Range/Units 16:36 11:44 Sodium (136-145) mmol/L Potassium (3.5-5.1) mmol/L Chloride (98-107) mmol/L Carbon Dioxide (21-32) mmol/L Anion Gap (3-11) BUN (6-23) mg/dl Creatinine (0.6-1.4) mg/dl Est Cr Clr Drug Dosing ml/min Est GFR ( Amer) ml/min Est GFR (Non-Af Amer) ml/min BUN/Creatinine Ratio (10-20) Glucose (70-99(Fasting)) mg/dl POC Glucose 144 H 150 H (70-99) mg/dl Calcium (8.6-10.3) mg/dl Phosphorus (2.5-4.9) mg/dl Magnesium (1.7-2.4) mg/dl Medications Administered Current Inpatient Medications Acetaminophen (Acetaminophen 325 Mg Tab) 650 mg PO Q4H PRN PRN Reason: pain/fever Stop: 08/27/23 21:05 Amiodarone HCl (Amiodarone 200 Mg Tab) 200 mg PO QAM [facility] Stop: 09/04/23 08:59 Apixaban (Apixaban 5 Mg Tablet) 5 mg PO BID [place] Stop: 08/31/23 10:14 Last Admin: 08/04/23 20:48 Dose: 5 mg Aspirin (Aspirin 81 Mg Ectab) 81 mg PO DAILY [facility] Stop: 08/28/23 08:59 Last Admin: 08/04/23 09:19 Dose: 81 mg Cephalexin HCl (Cephalexin 500 Mg Cap) 500 mg PO QID [facility]; Protocol Stop: 08/10/23 16:59 Last Admin: 08/04/23 20:49 Dose: 500 mg Dextrose (Dextrose 50% 50 Ml Syringe) 25 - 50 ml IV UD PRN; Protocol PRN Reason: Hypoglycemia Protocol Stop: 08/27/23 21:05 Docusate Sodium (Docusate Sodium 100 Mg Cap) 100 mg PO BID [facility] Stop: 08/28/23 08:59 Last Admin: 08/04/23 20:49 Dose: 100 mg Folic Acid (Folic Acid 400 Mcg Tab) 400 mcg PO QAM [facility] Stop: 08/28/23 08:59 Last Admin: 08/04/23 09:19 Dose: 400 mcg Glucagon (Glucagon For Inj 1 Mg Vial) 1 mg SQ UD PRN; Protocol PRN Reason: Hypoglycemia Protocol Stop: 08/27/23 21:05 Glucose (Glucose 10 Tab/Tube) 4 - 8 tab PO UD PRN; Protocol PRN Reason: Hypoglycemia Treatment Stop: 08/27/23 21:05 Glucose (Glucose 40% Gel 15 Gm Tube) 15 - 30 gm PO UD PRN; Protocol PRN Reason: Hypoglycemia Protocol Stop: 08/27/23 21:05 Insulin Aspart (Insulin Aspart Per Unit Charge) 0 units SC ACHS [facility] Stop: 08/27/23 21:05 Last Admin: 08/04/23 20:50 Dose: Not Given Insulin Glargine (Lantus Per Unit Charge) 8 units SC HS [facility] Stop: 09/03/23 20:59 Last Admin: 08/04/23 20:48 Dose: 8 units Lactobacillus Acidophilus (Advanced Probiotic 1250 Mg Capsule) 2 cap PO DAILY [facility] Stop: 09/02/23 14:29 Last Admin: 08/04/23 09:19 Dose: 2 cap Magnesium Oxide (Magnesium Oxide 400 Mg Tab) 400 mg PO QAM [facility] Stop: 09/03/23 08:59 Last Admin: 08/04/23 09:22 Dose: 400 mg Melatonin (Melatonin 3 Mg Tab) 3 mg PO HS PRN PRN Reason: Sleep Stop: 09/03/23 00:44 Miscellaneous (Carbohydrates For Hypoglycemia ) 15 - 30 gm PO UD PRN PRN Reason: Hypoglycemia Protocol Stop: 08/27/23 21:05 Miscellaneous Information (Pharmacy Glycemic Mgmt Consult) 1 each N/A UD PRN PRN Reason: Consult Stop: 08/27/23 21:05 Olanzapine (Olanzapine 10 Mg/2.1 Ml Sdv) 2.5 mg IM Q6H PRN PRN Reason: Agitation Stop: 08/27/23 20:44 Last Admin: 08/04/23 18:36 Dose: 2.5 mg Ondansetron HCl (Ondansetron Inj 2 Mg/Ml 2 Ml Vial) 4 mg IV Q6H PRN PRN Reason: Nausea Stop: 08/27/23 21:05 Polyethylene Glycol (Polyethylene (Miralax) 17 Gm Pack) 17 gm PO DAILY PRN PRN Reason: Constipation Stop: 08/27/23 21:05 Polyethylene Glycol (Polyethylene (Miralax) 17 Gm Pack) 17 gm PO DAILY [place] Stop: 08/28/23 08:59 Last Admin: 08/04/23 09:28 Dose: 17 gm Tamsulosin HCl (Tamsulosin Hcl 0.4 Mg Cap) 0.4 mg PO HS [facility] Stop: 08/28/23 20:59 Last Admin: 08/04/23 20:49 Dose: 0.4 mg Thiamine HCl (Thiamine Hcl 100 Mg Tab) 100 mg PO QAM [facility] Stop: 08/28/23 08:59 Last Admin: 08/04/23 09:19 Dose: 100 mg (4) Acute renal failure Acute renal failure type: unspecified Qualified Code(s): N17.9 - Acute kidney failure, unspecified
[2023-08-05 07:49] LABS: Calcium 8.9 mg/dl (8.6-10.3); Creatinine Clr Calc Pharmacy 71.4 ml/min; Est GFR (African American) 92.9 ml/min; Est GFR (Non-African American) 80.2 ml/min; Magnesium 1.8 mg/dl (1.7-2.4); Phosphorus 3.4 mg/dl (2.5-4.9); Potassium 4.1 mmol/L (3.5-5.1)
[2023-08-05] MEDS: ADVANCED PROBIOTIC 1250 MG CAPSULE PO SCH (08:44)
[2023-08-05] MEDS: cephALEXin 500 MG CAP PO SCH ×4 (08:44→20:05)
[2023-08-05] MEDS: ASPIRIN 81 MG ECTAB PO SCH (08:44)
[2023-08-05] MEDS: THIAMINE HCL 100 MG TAB PO SCH (08:44)
[2023-08-05] MEDS: DOCUSATE SODIUM 100 MG CAP PO SCH ×2 (08:44→20:05)
[2023-08-05] MEDS: APIXABAN 5 MG TABLET PO SCH ×2 (08:44→20:38)
[2023-08-05] MEDS: FOLIC ACID 400 MCG TAB PO SCH (08:44)
[2023-08-05] MEDS: MAGNESIUM OXIDE 400 MG TAB PO SCH ×2 (08:45→20:05)
[2023-08-05] MEDS: AMIODARONE 200 MG TAB PO SCH (08:45)
[2023-08-05] MEDS: INSULIN ASPART PER UNIT CHARGE SC SCH ×4 (08:47→20:37)
[2023-08-05] MEDS: POLYETHYLENE (MIRALAX) 17 GM PACK PO SCH (08:55)
--- NOTE | 2023-08-05 11:55 | Cardiology Progress Note ---
Date of Service August 05, 2023 Assessment & Plan (1) Paroxysmal atrial fibrillation with RVR: (2) Acute renal failure: (3) Bladder outlet obstruction: Plan IMPRESSION: 83 year old male with remote history of coronary artery disease and hypertension presented to [facility] emergency department due to abdominal pain and generalized weakness. Found to have bilateral hydronephrosis and hydroureter with acute urinary retention and ANSELMO with presenting creatinine of 4.3. Cardiology consulted due to new onset atrial fibrillation with RVR EKG 08/05/23: SR at 83 bpm , nonspecific T wave abnormality. QTc 486 ms. PLAN: AFIB RVR: -AFIB RVR with rates into the 160s from 07/28 1030pm until 07/29 (1208am). Now maintained SR with rates 70-80s with frequent PACs/PVCs -Initially treated with amiodarone gtt, -Patient with elevated CHADsVASC score of 4 (age 4, HTN, CAD) making him high risk for CVA in relation to PAF 1. Paroxysmal atrial fibrillation 2. Nonsustained ventricular tachycardia with overall preserved LV systolic function 3. Sinus with blocked PACs, junctional rhythm Plan: Continue anticoagulation with Eliquis. Amiodarone 200 mg daily for both atrial and ventricular arrhythmia. There remains a possibility through use he may ultimately require pacemaker Admission and Anticipated Discharge Date Admission Date: July 28, 2023 Subjective Pt seen in cardiology follow up. Feeling well. Paz catheter draining clear yellow urine. Telemetry reveals SR in the 70s with PACs. No additional ventricular arrhythmias overnight. Physical Exam Constitutional: + altered mental status; no acute distre ss Neck: normal visual inspection and trachea midline Respiratory: normal respiratory effort; no respiratory distress Auscultation: + diminished lung sounds; no rales, no rhonchi and no wheezes Cardiovascular: Rate/Rhythm: regular rate and regular rhythm Heart Sounds: normal S1, normal S2 and + murmur (+1/6 systolic murmur) Vessels: no JVD Extremities: no edema Gastrointestinal (Abdomen): Inspection/Auscultation: normal bowel sounds; abdomen not distended Percussion/Palpation: abdomen nontender Skin: no rashes, warm and dry Psychiatric: Orientation: alert, oriented to person and oriented to place Results & Data Vital Signs (Past 12 Hours) Vital Signs Temp Pulse Pulse Resp BP Pulse Ox O2 Del Method 08/05/23 08:00 37.1 C 78 18 136/86 96 Room Air 08/05/23 06:21 57 L 08/05/23 02:38 36.6 C 83 20 174/94 H 94 Room Air Laboratory Results Comprehensive Metabolic Panel 08/05/23 Range/Units 06:31 Sodium 137 (136-145) mmol/L Potassium 4.1 (3.5-5.1) mmol/L Chloride 102 (98-107) mmol/L Carbon Dioxide 27 (21-32) mmol/L BUN 16 (6-23) mg/dl Creatinine 0.89 (0.6-1.4) mg/dl Glucose 150 H (70-99(Fasting)) mg/dl Calcium 8.9 (8.6-10.3) mg/dl Intake and Output 08/04/23 08/05/23 08/05/23 22:59 06:59 14:59 Intake Total 300 / 1040 Output Total 500 / 1100 200 / 1100 Balance -200 / -60 -200 / -60 Intake: Oral 300 / 1040 Output: Urine Amount (Catheter) 500 / 1100 200 / 1100 Paz/Indwelling 500 / 1100 200 / 1100 Other: Other Intake Source sips Weight 78.6 kg Weight Measurement Method Built in [facility] (2) Acute renal failure Acute renal failure type: unspecified Qualified Code(s): N17.9 - Acute kidney failure, unspecified
--- NOTE | 2023-08-05 12:10 | Electrocardiogram Report ---
Test Reason : Blood Pressure : / mmHG Vent. Rate : 083 BPM Atrial Rate : 083 BPM P-R Int : 144 ms QRS Dur : 086 ms QT Int : 414 ms P-R-T Axes : 033 027 117 degrees QTc Int : 486 ms Sinus rhythm with PACs, some consecutive Nonspecific T wave abnormality Prolonged QT Abnormal ECG When compared with ECG of 04-AUG-2023 19:22, Premature atrial complexes are no longer Present Confirmed by Ronni Herrera ([id number]) on 08/05/2023 12:10:03 PM Referred By: REFERRED SELF Confirmed By:Peter Herrera
[2023-08-05] MEDS: TAMSULOSIN HCL 0.4 MG CAP PO SCH (20:06)
[2023-08-05] MEDS: MELATONIN 3 MG TAB PO PRN (20:37)
[2023-08-05] MEDS: LANTUS PER UNIT CHARGE SC SCH (20:37)
[2023-08-06 06:51] LABS: Hematocrit (blood only) 41.6 % (42.0-52.0); Hemoglobin 14.6 g/dl (14.0-18.0); Mean Corpuscular Hemoglobin 29.8 pg (25.0-34.0); Mean Corpuscular Hgb Conc 35.1 g/dL (32.0-36.0); Mean Corpuscular Volume 84.9 fL (80.0-100.0); Mean Platelet Volume 10.5 fL (9.4-12.4); Platelet Count 203 K/uL (130-400); RDW Coefficient of Variation 13.3 % (11.5-14.5); RDW Standard Deviation 41.1 fL (36.4-46.3); White Blood Count 6.91 K/ul (4.8-10.8)
[2023-08-06 07:04] LABS: BUN Creatinine Ratio 18.9 (10-20); Calcium 8.7 mg/dl (8.6-10.3); Creatinine Clr Calc Pharmacy 66.9 ml/min; Est GFR (African American) 86.7 ml/min; Est GFR (Non-African American) 74.8 ml/min; Magnesium 1.9 mg/dl (1.7-2.4); Phosphorus 3.9 mg/dl (2.5-4.9); Potassium 3.7 mmol/L (3.5-5.1)
--- NOTE | 2023-08-06 07:56 | Electrocardiogram Report ---
Test Reason : Blood Pressure : / mmHG Vent. Rate : 070 BPM Atrial Rate : 070 BPM P-R Int : 134 ms QRS Dur : 084 ms QT Int : 428 ms P-R-T Axes : 038 014 117 degrees QTc Int : 462 ms Sinus rhythm with Premature atrial complexes Nonspecific T wave abnormality Prolonged QT Abnormal ECG When compared with ECG of 05-AUG-2023 06:01, Premature atrial complexes are now Present Confirmed by Ronni Herrera ([id number]) on 08/06/2023 7:55:51 AM Referred By: REFERRED SELF Confirmed By:Peter Herrera
[2023-08-06] MEDS ORDERED: POTASSIUM CHLORIDE PWD 20 MEQ PACK PO ONE (08:31)
--- NOTE | 2023-08-06 08:34 | Hospitalist Progress Note ---
Date of Service August 06, 2023 Assessment & Plan (1) Acute metabolic encephalopathy: Plan: Intermittent confusion is likely a combination of history of heavy ETOH use, dementia and recent stroke. (2) Alcohol abuse with withdrawal: Plan: Resolved. Cont thiamine and folic acid. Combative behavior intermittently requiring Zyprexa. Possible contribution from underlying cognitive inhibition per records. Requires 1:1 usually in the evenings. (3) Acute embolic stroke: Plan: recent afib with RVR. Added apixaban. Cont supportive care measures. (4) Acute renal failure: Plan: Resolved. Likely related to a combination of post obstructive uropathy 2/2 BPH and AUR with dehydration in the setting of alcohol abuse. (5) Acute urinary retention: Plan: Bilateral hydronephrosis on CT and acute urinary retention likely contributing to ANSELMO. Creatinine (and confusion) improved with alicea in place. Evaluated by Urology. Cont Flomax for BPH. TOV in one week per urology at their office. (6) Paroxysmal atrial fibrillation with RVR: Plan: NSVT - Nonsustained ventricular tachycardia with overall preserved LV systolic function Sinus with blocked PACs, junctional rhythm Initially presented with Afib with rapid ventricular response. Amio drip initiated and also oral metoprolol. Metoprolol stopped 2/2 lower heart rates and intermittent blocked PACs. Amio also stopped and he remained in sinus rhythm. Apixaban started as noted above. Plan was to avoid AV renetta agents per cardiology given resting bradycardia. However later in his hospital course pt had episode of 22 beat VT, reportedly asymptomatic. Discussed with cardiology and was started on amiodarone (08/04/23). pt may need pacer in the future. Phlebitis/ poss. cellulitis - erythema noted at R forearm, pt denies tenderness - discussed w/ RN - warm compress, also started keflex - cont. to closely monitor, improved (7) CAD (coronary artery disease): Plan: chronic, appears stable. h/o stent placement. Denies chest pain or SOB. HS trop is negative. (8) DMII (diabetes mellitus, type 2): Plan: chronic, uncontrolled. Noncompliant with medication. A1C is 8.6. DVT proph: eliquis Full Code Dispo-cont telemetry. Home pending ability of family to provide 24 hour care. May need PT to re-evaluate given recent finding on acute stroke. Per CM he currently lives with his son who is not present 20/03 in the home and doesn't have any equipment or assistance at home. He doesn't cook and goes to the [email or web address] for dinner every day. Cont to identify proper support at home and until that time will cont hospitalization. CM involved - plan for [facility] Admission and Anticipated Discharge Date Admission Date: July 28, 2023 Subjective 83 yo alcoholic man with dementia presented with confusion. Found to be in new onset afib which converted to NSR. Persistent ataxic gait and confusion prompted MRI brain which revealed embolic appearing stroke. Placed on apixaban. Continues to be intermittently confused/combative at times. He is cooperative with me today however last evening pulled his alicea catheter out. caused hematuria. Alicea was re-inserted and Eliquis held last night. Will resume now. Discussed w/ RN at the bedside and cardiology. Denies pain, chest pain,palpitations, shortness of breath, or abd. pain or other issues. Review of Systems Review of Systems: All systems reviewed & are unremarkable except as noted in Subjective Physical Exam Physical Exam: CONSTITUTIONAL: WNWD, M in NAD EYES: normal conjunctivae, no scleral icterus ENT: external ear and nose normal, MMM NECK: supple RESPIRATORY: clear to auscultation bilaterally, no crackles, rales or wheezes, normal respiratory effort CARDIOVASCULAR: regular rate and rhythm, S1 and 2 heard without murmurs CHEST: inspection of chest normal GASTROINTESTINAL:soft, nontender, Nd, no guarding MUSCULOSKELETAL: head is normocephalic and atraumatic, neck supple, moves extremities, R forearm w/ erythema (improved) , not tender SKIN: warm and dry NEURO/PSYCH: alert cooperative. Only answers some questions appropriately. normal speech, no tremor, moves extremities Results & Data Results & Data Vital Signs (Past 12 Hours) Vital Signs Temp Pulse Pulse Resp BP BP Pulse Ox 08/06/23 07:50 36.7 C 65 16 124/74 96 08/06/23 03:08 36.4 C L 63 18 121/71 94 08/05/23 23:58 36.3 C L 60 18 106/65 97 08/05/23 22:28 62 08/05/23 21:58 36.4 C L 71 18 144/74 H 91 O2 Del Method 12/10/23 07:50 Room Air 08/06/23 03:08 Room Air 08/05/23 23:58 Room Air 08/05/23 22:28 08/05/23 21:58 Room Air Laboratory Results 08/06/23 08/06/23 08/05/23 Range/Units 07:36 05:37 20:22 WBC 6.91 (4.8-10.8) K/ul RBC 4.90 (4.70-6.10) M/uL Hgb 14.6 (14.0-18.0) g/dl Hct 41.6 L (42.0-52.0) % MCV 84.9 (80.0-100.0) fL MCH 29.8 (25.0-34.0) pg MCHC 35.1 (32.0-36.0) g/dL RDW Std Deviation 41.1 (36.4-46.3) fL RDW Coeff of Dangelo 13.3 (11.5-14.5) % Plt Count 203 (130-400) K/uL MPV 10.5 (9.4-12.4) fL Sodium 136 (136-145) mmol/L Potassium 3.7 (3.5-5.1) mmol/L Chloride 101 (98-107) mmol/L Carbon Dioxide 28 (21-32) mmol/L Anion Gap 7 (3-11) BUN 18 (6-23) mg/dl Creatinine 0.95 (0.6-1.4) mg/dl Est Cr Clr Drug Dosing 66.9 ml/min Est GFR ( Amer) 86.7 ml/min Est GFR (Non-Af Amer) 74.8 ml/min BUN/Creatinine Ratio 18.9 (10-20) Glucose 122 H (70-99(Fasting)) mg/dl POC Glucose 126 H 167 H (70-99) mg/dl Calcium 8.7 (8.6-10.3) mg/dl Phosphorus 3.9 (2.5-4.9) mg/dl Magnesium 1.9 (1.7-2.4) mg/dl 08/05/23 08/05/23 Range/Units 16:00 11:41 WBC (4.8-10.8) K/ul RBC (4.70-6.10) M/uL Hgb (14.0-18.0) g/dl Hct (42.0-52.0) % MCV (80.0-100.0) fL MCH (25.0-34.0) pg MCHC (32.0-36.0) g/dL RDW Std Deviation (36.4-46.3) fL RDW Coeff of Dangelo (11.5-14.5) % Plt Count (130-400) K/uL MPV (9.4-12.4) fL Sodium (136-145) mmol/L Potassium (3.5-5.1) mmol/L Chloride (98-107) mmol/L Carbon Dioxide (21-32) mmol/L Anion Gap (3-11) BUN (6-23) mg/dl Creatinine (0.6-1.4) mg/dl Est Cr Clr Drug Dosing ml/min Est GFR ( Amer) ml/min Est GFR (Non-Af Amer) ml/min BUN/Creatinine Ratio (10-20) Glucose (70-99(Fasting)) mg/dl POC Glucose 131 H 135 H (70-99) mg/dl Calcium (8.6-10.3) mg/dl Phosphorus (2.5-4.9) mg/dl Magnesium (1.7-2.4) mg/dl Medications Administered Current Inpatient Medications Acetaminophen (Acetaminophen 325 Mg Tab) 650 mg PO Q4H PRN PRN Reason: pain/fever Stop: 08/27/23 21:05 Last Admin: 08/05/23 20:37 Dose: 650 mg Amiodarone HCl (Amiodarone 200 Mg Tab) 200 mg PO QAM [facility] Stop: 09/04/23 08:59 Last Admin: 08/05/23 08:45 Dose: 200 mg Apixaban (Apixaban 5 Mg Tablet) 5 mg PO BID [facility] Stop: 08/31/23 10:14 Last Admin: 08/05/23 20:38 Dose: Not Given Aspirin (Aspirin 81 Mg Ectab) 81 mg PO DAILY [facility] Stop: 08/28/23 08:59 Last Admin: 08/05/23 08:44 Dose: 81 mg Cephalexin HCl (Cephalexin 500 Mg Cap) 500 mg PO QID [facility]; Protocol Stop: 08/10/23 16:59 Last Admin: 08/05/23 20:05 Dose: 500 mg Dextrose (Dextrose 50% 50 Ml Syringe) 25 - 50 ml IV UD PRN; Protocol PRN Reason: Hypoglycemia Protocol Stop: 08/27/23 21:05 Docusate Sodium (Docusate Sodium 100 Mg Cap) 100 mg PO BID [place] Stop: 08/28/23 08:59 Last Admin: 08/05/23 20:05 Dose: 100 mg Folic Acid (Folic Acid 400 Mcg Tab) 400 mcg PO QAM [place] Stop: 08/28/23 08:59 Last Admin: 08/05/23 08:44 Dose: 400 mcg Glucagon (Glucagon For Inj 1 Mg Vial) 1 mg SQ UD PRN; Protocol PRN Reason: Hypoglycemia Protocol Stop: 08/27/23 21:05 Glucose (Glucose 10 Tab/Tube) 4 - 8 tab PO UD PRN; Protocol PRN Reason: Hypoglycemia Treatment Stop: 08/27/23 21:05 Glucose (Glucose 40% Gel 15 Gm Tube) 15 - 30 gm PO UD PRN; Protocol PRN Reason: Hypoglycemia Protocol Stop: 08/27/23 21:05 Insulin Aspart (Insulin Aspart Per Unit Charge) 0 units SC ACHS [place] Stop: 08/27/23 21:05 Last Admin: 08/05/23 20:37 Dose: 1 units Insulin Glargine (Lantus Per Unit Charge) 8 units SC HS [place] Stop: 09/03/23 20:59 Last Admin: 08/05/23 20:37 Dose: 8 units Lactobacillus Acidophilus (Advanced Probiotic 1250 Mg Capsule) 2 cap PO DAILY [place] Stop: 09/02/23 14:29 Last Admin: 08/05/23 08:44 Dose: 2 cap Magnesium Oxide (Magnesium Oxide 400 Mg Tab) 400 mg PO BID [place] Stop: 09/04/23 08:59 Last Admin: 08/05/23 20:05 Dose: 400 mg Melatonin (Melatonin 3 Mg Tab) 3 mg PO HS PRN PRN Reason: Sleep Stop: 09/03/23 00:44 Last Admin: 08/05/23 20:37 Dose: 3 mg Miscellaneous (Carbohydrates For Hypoglycemia ) 15 - 30 gm PO UD PRN PRN Reason: Hypoglycemia Protocol Stop: 08/27/23 21:05 Miscellaneous Information (Pharmacy Glycemic Mgmt Consult) 1 each N/A UD PRN PRN Reason: Consult Stop: 08/27/23 21:05 Olanzapine (Olanzapine 10 Mg/2.1 Ml Sdv) 2.5 mg IM Q6H PRN PRN Reason: Agitation Stop: 08/27/23 20:44 Last Admin: 08/04/23 18:36 Dose: 2.5 mg Ondansetron HCl (Ondansetron Inj 2 Mg/Ml 2 Ml Vial) 4 mg IV Q6H PRN PRN Reason: Nausea Stop: 08/27/23 21:05 Polyethylene Glycol (Polyethylene (Miralax) 17 Gm Pack) 17 gm PO DAILY PRN PRN Reason: Constipation Stop: 08/27/23 21:05 Polyethylene Glycol (Polyethylene (Miralax) 17 Gm Pack) 17 gm PO DAILY [place] Stop: 08/28/23 08:59 Last Admin: 08/05/23 08:55 Dose: 17 gm Potassium Chloride (Potassium Chloride Pwd 20 Meq Pack) 20 meq PO ONE ONE Stop: 08/06/23 08:32 Tamsulosin HCl (Tamsulosin Hcl 0.4 Mg Cap) 0.4 mg PO HS [facility] Stop: 08/28/23 20:59 Last Admin: 08/05/23 20:06 Dose: 0.4 mg Thiamine HCl (Thiamine Hcl 100 Mg Tab) 100 mg PO QAM [facility] Stop: 08/28/23 08:59 Last Admin: 08/05/23 08:44 Dose: 100 mg (4) Acute renal failure Acute renal failure type: unspecified Qualified Code(s): N17.9 - Acute kidney failure, unspecified
[2023-08-06] MEDS: ASPIRIN 81 MG ECTAB PO SCH (08:53)
[2023-08-06] MEDS: AMIODARONE 200 MG TAB PO SCH (08:53)
[2023-08-06] MEDS: ADVANCED PROBIOTIC 1250 MG CAPSULE PO SCH (08:53)
[2023-08-06] MEDS: DOCUSATE SODIUM 100 MG CAP PO SCH ×2 (08:54→20:07)
[2023-08-06] MEDS: MAGNESIUM OXIDE 400 MG TAB PO SCH ×2 (08:54→20:08)
[2023-08-06] MEDS: cephALEXin 500 MG CAP PO SCH ×4 (08:54→20:07)
[2023-08-06] MEDS: FOLIC ACID 400 MCG TAB PO SCH (08:54)
[2023-08-06] MEDS: THIAMINE HCL 100 MG TAB PO SCH (08:54)
[2023-08-06] MEDS: INSULIN ASPART PER UNIT CHARGE SC SCH ×4 (08:56→20:17)
[2023-08-06] MEDS: POLYETHYLENE (MIRALAX) 17 GM PACK PO SCH (09:02)
[2023-08-06] MEDS: APIXABAN 5 MG TABLET PO SCH ×2 (11:02→20:07)
--- NOTE | 2023-08-06 14:25 | Cardiology Progress Note ---
Date of Service August 06, 2023 Assessment & Plan (1) Paroxysmal atrial fibrillation with RVR: (2) Acute renal failure: (3) Bladder outlet obstruction: Plan IMPRESSION: 83 year old male with remote history of coronary artery disease and hypertension presented to [facility] emergency department due to abdominal pain and generalized weakness. Found to have bilateral hydronephrosis and hydroureter with acute urinary retention and ANSELMO with presenting creatinine of 4.3. Cardiology consulted due to new onset atrial fibrillation with RVR EKG 08/05/23: SR at 83 bpm , nonspecific T wave abnormality. QTc 486 ms. PLAN: AFIB RVR: -AFIB RVR with rates into the 160s from 07/28 1030pm until 07/29 (1208am). Now maintained SR with rates 70-80s with frequent PACs/PVCs -Initially treated with amiodarone gtt, -Patient with elevated CHADsVASC score of 4 (age 4, HTN, CAD) making him high risk for CVA in relation to PAF 1. Paroxysmal atrial fibrillation 2. Nonsustained ventricular tachycardia with overall preserved LV systolic function 3. Sinus with blocked PACs, junctional rhythm Plan: Continue anticoagulation with Eliquis. Amiodarone 200 mg daily for both atrial and ventricular arrhythmia. There remains a possibility through use he may ultimately require pacemaker however so far doing well on amiodarone. Paz catheter in place with plans for outpatient Urology follow up. Eliquis held first thing in am of 1210 dur to hematuria. Can be restarted. Admission and Anticipated Discharge Date Admission Date: July 28, 2023 Subjective Patient seen in cardiology follow-up. Since seen yesterday he had removed his Paz on his own and it was reinserted with subsequent traumatic hematuria. Urine output has since cleared and is clear and yellow on reassessment. Telemetry reveals ongoing sinus rhythm in the 70s with occasional PACs, no recurrence of atrial fibrillation overnight last night, no ventricular arrhythmias. Physical Exam Constitutional: + altered mental status; no acute distre ss Neck: normal visual inspection and trachea midline Respiratory: normal respiratory effort; no respiratory distress Auscultation: + diminished lung sounds; no rales, no rhonchi and no wheezes Cardiovascular: Rate/Rhythm: regular rate and regular rhythm Heart Sounds: normal S1, normal S2 and + murmur (+1/6 systolic murmur) Vessels: no JVD Extremities: no edema Gastrointestinal (Abdomen): Inspection/Auscultation: normal bowel sounds; abdomen not distended Percussion/Palpation: abdomen nontender Skin: no rashes, warm and dry Psychiatric: Orientation: alert, oriented to person and oriented to place Results & Data Vital Signs (Past 12 Hours) Vital Signs Temp Pulse Pulse Pulse Resp BP BP 08/06/23 14:06 36.5 C 72 80 18 135/79 144/74 H 08/06/23 12:24 36.5 C 80 18 135/79 08/06/23 07:50 36.7 C 65 16 124/74 08/06/23 06:00 67 08/06/23 03:08 36.4 C L 63 18 121/71 Pulse Ox O2 Del Method 08/06/23 14:06 96 08/06/23 12:24 96 Room Air 08/06/23 07:50 96 Room Air 08/06/23 06:00 08/06/23 03:08 94 Room Air (2) Acute renal failure Acute renal failure type: unspecified Qualified Code(s): N17.9 - Acute kidney failure, unspecified
[2023-08-06] MEDS: OLANZapine 10 MG/2.1 ML SDV IM PRN (19:10)
[2023-08-06] MEDS: TAMSULOSIN HCL 0.4 MG CAP PO SCH (20:08)
[2023-08-06] MEDS: MELATONIN 3 MG TAB PO PRN (20:10)
[2023-08-06] MEDS: LANTUS PER UNIT CHARGE SC SCH (20:14)
[2023-08-07 06:36] LABS: Hematocrit (blood only) 40.7 % (42.0-52.0); Mean Corpuscular Hemoglobin 29.6 pg (25.0-34.0); Mean Corpuscular Hgb Conc 34.4 g/dL (32.0-36.0); Mean Platelet Volume 10.1 fL (9.4-12.4); Platelet Count 198 K/uL (130-400); RDW Coefficient of Variation 13.3 % (11.5-14.5); RDW Standard Deviation 41.9 fL (36.4-46.3); Red Blood Count 4.73 M/uL (4.70-6.10); White Blood Count 6.76 K/ul (4.8-10.8)
[2023-08-07 06:44] LABS: BUN Creatinine Ratio 14.4 (10-20); Calcium 8.9 mg/dl (8.6-10.3); Creatinine Clr Calc Pharmacy 57.3 ml/min; Est GFR (African American) 71.8 ml/min; Est GFR (Non-African American) 61.9 ml/min; Phosphorus 3.6 mg/dl (2.5-4.9); Potassium 4.1 mmol/L (3.5-5.1)
[2023-08-07] MEDS: ADVANCED PROBIOTIC 1250 MG CAPSULE PO SCH (07:54)
[2023-08-07] MEDS: THIAMINE HCL 100 MG TAB PO SCH (07:54)
[2023-08-07] MEDS: cephALEXin 500 MG CAP PO SCH ×4 (07:54→20:25)
[2023-08-07] MEDS: AMIODARONE 200 MG TAB PO SCH (07:55)
[2023-08-07] MEDS: FOLIC ACID 400 MCG TAB PO SCH (07:55)
[2023-08-07] MEDS: APIXABAN 5 MG TABLET PO SCH ×2 (07:55→20:25)
[2023-08-07] MEDS: DOCUSATE SODIUM 100 MG CAP PO SCH ×2 (07:55→20:25)
--- NOTE | 2023-08-07 07:57 | Cardiology Progress Note ---
Date of Service August 07, 2023 Assessment & Plan (1) Paroxysmal atrial fibrillation with RVR: (2) Acute renal failure: (3) Bladder outlet obstruction: Admission and Anticipated Discharge Date Admission Date: July 28, 2023 Supervising Physician Co-Signing Physician Notes IMPRESSION: 83 year old man presenting with abdominal pain and weakness Dx: ANSELMO (creat 4.3)- bilateral hydronephrosis and hydroureter with acute urinary retention Cardiology Consult: new onset afib with RVR Cardiac Hx: -Coronary artery disease -HTN PLANs: * AFIB RVR: * LVEF 50-55%; no major Mitral Valve Disease * Pt now in NSR * Continue Amiodarone 200 mg po per day - concerns that patient may need pacer - Amiodarone not aggressively loaded * HR presently 65 BPM * Check TSH * Replete Magnesium - Daily dosing * Magnesium likely low secondary to ETOH * Phosphorus levels - WNL * Continue FOLATE/THIAMINE/MVI * CHADsVASC score of 4 (age 2, HTN, CAD) * Continue DOAC - no major bleeding * Patient appears euvoelmic * + CAD hx * LDL 92, AST and ALT are WNL * Start Crestor 10 mg po per day * Continue ASA 81 mg po per day * Paz catheter in place with plans for outpatient Urology follow up. * Set up follow up with [facility] Cardiology Yfn Adame Subjective ID: 83 year old man presenting with abdominal pain and weakness Dx: ANSELMO (creat 4.3)- bilateral hydronephrosis and hydroureter with acute urinary retention Cardiology Consult: new onset afib with RVR Events overnight: * on Telemetry - NSR Subjective: * No complaints Review of Systems Review of Systems: All systems reviewed & are unremarkable except as noted in HPI & below Physical Exam Physical Exam: No elevation in JVP S1S2 Soft 2/6 systolic murmur CTA B + BS No C/C/E Results & Data Vital Signs (Past 12 Hours) Vital Signs Temp Pulse Pulse Resp BP Pulse Ox O2 Del Method 08/07/23 07:35 36.9 C 76 18 117/76 97 Room Air 08/07/23 02:33 36.4 C L 52 L 18 103/57 L 94 Room Air 08/06/23 22:53 36.4 C L 65 16 124/67 91 Room Air 08/06/23 21:59 56 L Laboratory Results CBC 08/07/23 Range/Units 05:27 WBC 6.76 (4.8-10.8) K/ul RBC 4.73 (4.70-6.10) M/uL Hgb 14.0 (14.0-18.0) g/dl Hct 40.7 L (42.0-52.0) % Plt Count 198 (130-400) K/uL Comprehensive Metabolic Panel 08/07/23 Range/Units 05:27 Sodium 136 (136-145) mmol/L Potassium 4.1 (3.5-5.1) mmol/L Chloride 101 (98-107) mmol/L Carbon Dioxide 29 (21-32) mmol/L BUN 16 (6-23) mg/dl Creatinine 1.11 (0.6-1.4) mg/dl Glucose 114 H (70-99(Fasting)) mg/dl Calcium 8.9 (8.6-10.3) mg/dl Intake and Output 08/06/23 08/07/23 08/07/23 22:59 06:59 14:59 Output Total 750 / 1351 Balance -750 / -1111 Output: Urine Amount (Catheter) 750 / 1350 Coude 500 / 500 Paz/Indwelling 250 / 850 Other: Weight 80.9 kg Weight Measurement [facility] Medications Administered Current Inpatient Medications Acetaminophen (Acetaminophen 325 Mg Tab) 650 mg PO Q4H PRN PRN Reason: pain/fever Stop: 08/27/23 21:05 Last Admin: 08/05/23 20:37 Dose: 650 mg Amiodarone HCl (Amiodarone 200 Mg Tab) 200 mg PO QAM [facility] Stop: 09/04/23 08:59 Last Admin: 08/06/23 08:53 Dose: 200 mg Apixaban (Apixaban 5 Mg Tablet) 5 mg PO BID [facility] Stop: 08/31/23 10:14 Last Admin: 08/06/23 20:07 Dose: 5 mg Aspirin (Aspirin 81 Mg Ectab) 81 mg PO DAILY [facility] Stop: 08/28/23 08:59 Last Admin: 08/06/23 08:53 Dose: 81 mg Cephalexin HCl (Cephalexin 500 Mg Cap) 500 mg PO QID [facility]; Protocol Stop: 08/10/23 16:59 Last Admin: 08/06/23 20:07 Dose: 500 mg Dextrose (Dextrose 50% 50 Ml Syringe) 25 - 50 ml IV UD PRN; Protocol PRN Reason: Hypoglycemia Protocol Stop: 08/27/23 21:05 Docusate Sodium (Docusate Sodium 100 Mg Cap) 100 mg PO BID [place] Stop: 08/28/23 08:59 Last Admin: 08/06/23 20:07 Dose: 100 mg Folic Acid (Folic Acid 400 Mcg Tab) 400 mcg PO QAM [place] Stop: 08/28/23 08:59 Last Admin: 08/06/23 08:54 Dose: 400 mcg Glucagon (Glucagon For Inj 1 Mg Vial) 1 mg SQ UD PRN; Protocol PRN Reason: Hypoglycemia Protocol Stop: 08/27/23 21:05 Glucose (Glucose 10 Tab/Tube) 4 - 8 tab PO UD PRN; Protocol PRN Reason: Hypoglycemia Treatment Stop: 08/27/23 21:05 Glucose (Glucose 40% Gel 15 Gm Tube) 15 - 30 gm PO UD PRN; Protocol PRN Reason: Hypoglycemia Protocol Stop: 08/27/23 21:05 Insulin Aspart (Insulin Aspart Per Unit Charge) 0 units SC ACHS [place] Stop: 08/27/23 21:05 Last Admin: 08/06/23 20:17 Dose: Not Given Insulin Glargine (Lantus Per Unit Charge) 8 units SC HS [facility] Stop: 09/03/23 20:59 Last Admin: 08/06/23 20:14 Dose: 8 units Lactobacillus Acidophilus (Advanced Probiotic 1250 Mg Capsule) 2 cap PO DAILY [place] Stop: 09/02/23 14:29 Last Admin: 08/06/23 08:53 Dose: 2 cap Magnesium Oxide (Magnesium Oxide 400 Mg Tab) 400 mg PO BID [place] Stop: 09/04/23 08:59 Last Admin: 08/06/23 20:08 Dose: 400 mg Melatonin (Melatonin 3 Mg Tab) 3 mg PO HS PRN PRN Reason: Sleep Stop: 09/03/23 00:44 Last Admin: 08/06/23 20:10 Dose: 3 mg Miscellaneous (Carbohydrates For Hypoglycemia ) 15 - 30 gm PO UD PRN PRN Reason: Hypoglycemia Protocol Stop: 08/27/23 21:05 Miscellaneous Information (Pharmacy Glycemic Mgmt Consult) 1 each N/A UD PRN PRN Reason: Consult Stop: 08/27/23 21:05 Olanzapine (Olanzapine 10 Mg/2.1 Ml Sdv) 2.5 mg IM Q6H PRN PRN Reason: Agitation Stop: 08/27/23 20:44 Last Admin: 08/06/23 19:10 Dose: 2.5 mg Ondansetron HCl (Ondansetron Inj 2 Mg/Ml 2 Ml Vial) 4 mg IV Q6H PRN PRN Reason: Nausea Stop: 08/27/23 21:05 Polyethylene Glycol (Polyethylene (Miralax) 17 Gm Pack) 17 gm PO DAILY PRN PRN Reason: Constipation Stop: 08/27/23 21:05 Polyethylene Glycol (Polyethylene (Miralax) 17 Gm Pack) 17 gm PO DAILY [facility] Stop: 08/28/23 08:59 Last Admin: 08/06/23 09:02 Dose: 17 gm Tamsulosin HCl (Tamsulosin Hcl 0.4 Mg Cap) 0.4 mg PO HS [facility] Stop: 08/28/23 20:59 Last Admin: 08/06/23 20:08 Dose: 0.4 mg Thiamine HCl (Thiamine Hcl 100 Mg Tab) 100 mg PO QAM [facility] Stop: 08/28/23 08:59 Last Admin: 08/06/23 08:54 Dose: 100 mg (2) Acute renal failure Acute renal failure type: unspecified Qualified Code(s): N17.9 - Acute kidney failure, unspecified
[2023-08-07] MEDS: INSULIN ASPART PER UNIT CHARGE SC SCH ×4 (08:02→20:27)
[2023-08-07] MEDS: POLYETHYLENE (MIRALAX) 17 GM PACK PO SCH (08:26)
[2023-08-07] MEDS: ASPIRIN 81 MG ECTAB PO SCH (10:47)
[2023-08-07] MEDS: MAGNESIUM OXIDE 400 MG TAB PO SCH ×2 (10:47→20:25)
--- NOTE | 2023-08-07 12:22 | Pharmacy Report ---
Pharmacy Glycemic Short Note 2 - Date of Service August 07, 2023 - Glycemic Short BSG Results (Last 24 hours): 08/06/23 08/06/23 08/07/23 16:04 20:11 05:27 Glucose 114 H POC Glucose 152 H 122 H 08/07/23 08/07/23 07:09 11:12 Glucose POC Glucose 130 H 197 H OUTPATIENT ANTIDIABETIC REGIMEN: * reported non-compliance w/ metformin HbA1c: 8.6% (07/29/23) ASSESSMENT: 08/07 * BSGs yesterday were 336-216-190-122 mg/dL. Patient received 21 units of insulin (8 units of basal and 13 units of bolus). * Fasting today is 130 mg/dL. * Continue regimen as BSGs well controlled. 08/03: * Patient received total 13 units of insulin yesterday all of which was bolus. * Fasting BSG today was 170 mg/dl . A small dose of basal Lantus 5 units added for HS for better fasting BSG. * Novolog parameters continued the same. * Renal function has improved since admission. 08/02: * Alexsander received 13 units of bolus insulin yesterday * Seems to be tolerating diet better per nursing documentation * No basal insulin required the past 3 days, will discontinue scaled order for HS Lantus * Novolog parameters seem to be adequately covering/correcting, continue current parameters 07/31: * Alexsander received no units of insulin yesterday, does not appear to have eaten much yesterday per nursing documentation * Fasting BSG slightly below goal range this AM, will continue small Lantus scale HS based on BSG * Difficult to assess Novolog efficacy, continue current parameters. 07/29: * DANGELO is an 83 year old male who presented to ED on 07/28/23 w/ feelings of general unwellness/weakness and polyuria * Found to have BSG of 358 mg/dL - responded well to IV insulin bolus. Patient also w/ suspected bladder outlet obstruction. * Hyperglycemic today in 200s. Will conservatively increase insulin regimen today and add overnight checks tonight. * Diet ordered. IV fluids (NSS + 20 KCl @100 mL/hr) infusing currently. PLAN FOR INPATIENT GLYCEMIC CONTROL: * Basal insulin * Lantus 8 units SQ HS * Bolus insulin * NovoLog per scale ACHS or Q6hrs while NPO * Goal Range: Low 110 mg/dL - High 140 mg/dL * Correction Factor: 35 mg/dL/unit * Nutritional / Prandial insulin per carb ratio of 1 unit per 12 grams CHO consumed
--- NOTE | 2023-08-07 15:06 | Hospitalist Progress Note ---
Date of Service August 07, 2023 Assessment & Plan (1) Acute metabolic encephalopathy: Plan: Intermittent confusion is likely a combination of history of heavy ETOH use, dementia and recent stroke. (2) Alcohol abuse with withdrawal: Plan: Resolved. Cont thiamine and folic acid. Combative behavior intermittently requiring Zyprexa. Possible contribution from underlying cognitive inhibition per records. Requires 1:1 usually in the evenings. (3) Acute embolic stroke: Plan: Recent afib with RVR during admission MRI showed numerous (at least 5) subcentimeter foci of restricted diffusion in the bilateral white matter as above consistent with acute to subacute lacunar infarcts. Continue apixaban. No neurology document found Cont supportive care measures. Continue PT/OT eval Follow up with neurology outpatient (4) Acute renal failure: Plan: Likely related to a combination of post obstructive uropathy 2/2 BPH and AUR with dehydration in the setting of alcohol abuse. Creatinine 1.1 today resolved (5) Acute urinary retention: Plan: Bilateral hydronephrosis on CT and acute urinary retention likely contributing to ANSELMO. Creatinine improved with alicea in place. Evaluated by Urology. Cont Flomax for BPH. TOV in one week per urology at their office. Continue alicea cath on discharge (6) Paroxysmal atrial fibrillation with RVR: Plan: NSVT - Nonsustained ventricular tachycardia with overall preserved LV systolic function Sinus with blocked PACs, junctional rhythm Initially presented with Afib with rapid ventricular response. Amio drip initiated and also oral metoprolol. Metoprolol stopped 2/2 lower heart rates and intermittent blocked PACs. Amio also stopped and he remained in sinus rhythm. Apixaban started as noted above. Plan was to avoid AV renetta agents per cardiology given resting bradycardia. However later in his hospital course pt had episode of 22 beat VT, reportedly asymptomatic. Discussed with cardiology and was started on amiodarone (08/04/23). pt may need pacer in the future. Phlebitis/ poss. cellulitis - erythema noted at R forearm, pt denies tenderness - discussed w/ RN - warm compress, also started keflex - cont. to closely monitor, improved (7) CAD (coronary artery disease): Plan: chronic, appears stable. h/o stent placement. Denies chest pain or SOB. HS trop is negative. (8) DMII (diabetes mellitus, type 2): Plan: chronic, uncontrolled. Noncompliant with medication. A1C is 8.6. DVT proph: eliquis Full Code Disposition PT recommended inpatient rehab CM involved - plan for [facility] Admission and Anticipated Discharge Date Admission Date: July 28, 2023 Subjective Pt was seen and examined for follow up Sitting in chair with no acute distress Pt said that he feels ok telemonitor showed brief episode of atrial tachycardia Denies any chest pain, palpitation, dizziness and SOB Review of Systems Review of Systems: All systems reviewed & are unremarkable except as noted in Subjective Physical Exam Physical Exam: General- No acute distress Head- atraumatic Eyes- PERRL, EOMI, ENT- oropharynx clear Neck- supple, no JVD Lungs- clear to auscultation Heart- regular rhythm, No tachycardia Abdomen- normal bowel sounds, soft, nontender Extremities- no calf tenderness Neuro- alert, awake, PERRL, EOMI; no facial palsy; no dysarthria Skin- warm & dry Results & Data Results & Data Vital Signs (Past 12 Hours) Vital Signs Temp Pulse Resp BP Pulse Ox O2 Del Method 08/07/23 12:07 36.4 C L 66 18 132/76 96 Room Air 08/07/23 08:00 Room Air 08/07/23 07:35 36.9 C 76 18 117/76 97 Room Air (4) Acute renal failure Acute renal failure type: unspecified Qualified Code(s): N17.9 - Acute kidney failure, unspecified
--- NOTE | 2023-08-07 18:47 | Electrocardiogram Report ---
Test Reason : Blood Pressure : / mmHG Vent. Rate : 071 BPM Atrial Rate : 071 BPM P-R Int : 128 ms QRS Dur : 088 ms QT Int : 434 ms P-R-T Axes : 020 032 129 degrees QTc Int : 471 ms Sinus rhythm with marked sinus arrhythmia Nonspecific T wave abnormality Abnormal ECG When compared with ECG of 06-AUG-2023 06:05, No significant change Confirmed by Odell Lema ([id number]) on 08/07/2023 6:46:58 PM Referred By: REFERRED SELF Confirmed By:Odell Lema
[2023-08-07] MEDS: TAMSULOSIN HCL 0.4 MG CAP PO SCH (20:24)
[2023-08-07] MEDS: LANTUS PER UNIT CHARGE SC SCH (21:17)
[2023-08-08 06:50] LABS: BUN Creatinine Ratio 14.4 (10-20); Calcium 8.8 mg/dl (8.6-10.3); Creatinine Clr Calc Pharmacy 65.6 ml/min; Est GFR (African American) 84.5 ml/min; Est GFR (Non-African American) 72.9 ml/min; Magnesium 1.9 mg/dl (1.7-2.4); Phosphorus 3.2 mg/dl (2.5-4.9); Potassium 4.1 mmol/L (3.5-5.1)
[2023-08-08] MEDS: INSULIN ASPART PER UNIT CHARGE SC SCH ×2 (07:53→12:43)
[2023-08-08] MEDS: ADVANCED PROBIOTIC 1250 MG CAPSULE PO SCH (07:53)
[2023-08-08] MEDS: APIXABAN 5 MG TABLET PO SCH (07:54)
[2023-08-08] MEDS: MAGNESIUM OXIDE 400 MG TAB PO SCH (07:54)
[2023-08-08] MEDS: FOLIC ACID 400 MCG TAB PO SCH (07:54)
[2023-08-08] MEDS: ASPIRIN 81 MG ECTAB PO SCH (07:54)
[2023-08-08] MEDS: DOCUSATE SODIUM 100 MG CAP PO SCH (07:54)
[2023-08-08] MEDS: THIAMINE HCL 100 MG TAB PO SCH (07:54)
[2023-08-08] MEDS: cephALEXin 500 MG CAP PO SCH ×2 (07:54→12:43)
[2023-08-08] MEDS: AMIODARONE 200 MG TAB PO SCH (07:54)
[2023-08-08] MEDS: POLYETHYLENE (MIRALAX) 17 GM PACK PO SCH (07:55)
--- NOTE | 2023-08-08 08:59 | Cardiology Progress Note ---
Date of Service August 08, 2023 Assessment & Plan Admission and Anticipated Discharge Date Admission Date: July 28, 2023 Supervising Physician Co-Signing Physician Notes IMPRESSION: 83 year old man presenting with abdominal pain and weakness Dx: ANSELMO (creat 4.3)- bilateral hydronephrosis and hydroureter with acute urinary retention Cardiology Consult: new onset afib with RVR Cardiac Hx: -Coronary artery disease -HTN PLANs: * ANSELMO - resolved * AFIB RVR - resolved * LVEF 50-55%; no major Mitral Valve Disease * Pt now in NSR * Continue Amiodarone 200 mg po per day - concerns that patient may need pacer - Amiodarone not aggressively loaded * HR presently 72 BPM * Check TSH * Replete Magnesium - Daily dosing * Magnesium likely low secondary to ETOH * Phosphorus levels - WNL * Continue FOLATE/THIAMINE/MVI * CHADsVASC score of 4 (age 4, HTN, CAD) * Continue DOAC - no major bleeding * Patient appears euvolemic * + CAD hx * LDL 92, AST and ALT are WNL * Continue Crestor 10 mg po per day * Continue ASA 81 mg po per day * Paz catheter in place with plans for outpatient Urology follow up. * Set up follow up with [facility] * Please call with any additional questions Yfn Adame Subjective ID: 83 year old man presenting with abdominal pain and weakness Dx: ANSELMO (creat 4.3)- bilateral hydronephrosis and hydroureter with acute urinary retention Cardiology Consult: new onset afib with RVR Events overnight: * on Telemetry - NSR Subjective: * No complaints Review of Systems Review of Systems: All systems reviewed & are unremarkable except as noted in HPI & below Physical Exam Physical Exam: No elevation in JVP S1S2 Soft 2/6 systolic murmur CTA B + BS No C/C/E Results & Data Vital Signs (Past 12 Hours) Vital Signs Temp Pulse Pulse Resp BP Pulse Ox O2 Del Method 08/08/23 07:38 36.8 C 72 18 125/62 96 Room Air 08/08/23 03:23 36.6 C 78 20 144/76 H 97 Room Air 08/08/23 01:27 77 08/07/23 22:39 36.8 C 57 L 18 148/72 H 94 Room Air 08/07/23 21:00 Room Air Laboratory Results Comprehensive Metabolic Panel 08/08/23 Range/Units 05:39 Sodium 136 (136-145) mmol/L Potassium 4.1 (3.5-5.1) mmol/L Chloride 101 (98-107) mmol/L Carbon Dioxide 28 (21-32) mmol/L BUN 14 (6-23) mg/dl Creatinine 0.97 (0.6-1.4) mg/dl Glucose 120 H (70-99(Fasting)) mg/dl Calcium 8.8 (8.6-10.3) mg/dl Intake and Output 08/07/23 08/08/23 08/08/23 22:59 06:59 14:59 Intake Total 375 / 1455 300 / 1455 Output Total 350 / 1102 350 / 1102 Balance 25 / 353 -50 / 353 Intake: Oral 375 / 1455 300 / 1455 Output: Urine Amount (Catheter) 350 / 1100 350 / 1100 Paz/Indwelling 350 / 1100 350 / 1100 Other: Weight 82.5 kg [facility] Administered Current Inpatient Medications Acetaminophen (Acetaminophen 325 Mg Tab) 650 mg PO Q4H PRN PRN Reason: pain/fever Stop: 08/27/23 21:05 Last Admin: 08/05/23 20:37 Dose: 650 mg Amiodarone HCl (Amiodarone 200 Mg Tab) 200 mg PO QAM [facility] Stop: 09/04/23 08:59 Last Admin: 08/08/23 07:54 Dose: 200 mg Apixaban (Apixaban 5 Mg Tablet) 5 mg PO BID [facility] Stop: 08/31/23 10:14 Last Admin: 08/08/23 07:54 Dose: 5 mg Aspirin (Aspirin 81 Mg Ectab) 81 mg PO DAILY [facility] Stop: 08/28/23 08:59 Last Admin: 08/08/23 07:54 Dose: 81 mg Cephalexin HCl (Cephalexin 500 Mg Cap) 500 mg PO QID [facility]; Protocol Stop: 08/10/23 16:59 Last Admin: 08/08/23 07:54 Dose: 500 mg Dextrose (Dextrose 50% 50 Ml Syringe) 25 - 50 ml IV UD PRN; Protocol PRN Reason: Hypoglycemia Protocol Stop: 08/27/23 21:05 Docusate Sodium (Docusate Sodium 100 Mg Cap) 100 mg PO BID [facility] Stop: 08/28/23 08:59 Last Admin: 08/08/23 07:54 Dose: 100 mg Folic Acid (Folic Acid 400 Mcg Tab) 400 mcg PO QAM [place] Stop: 08/28/23 08:59 Last Admin: 08/08/23 07:54 Dose: 400 mcg Glucagon (Glucagon For Inj 1 Mg Vial) 1 mg SQ UD PRN; Protocol PRN Reason: Hypoglycemia Protocol Stop: 08/27/23 21:05 Glucose (Glucose 10 Tab/Tube) 4 - 8 tab PO UD PRN; Protocol PRN Reason: Hypoglycemia Treatment Stop: 08/27/23 21:05 Glucose (Glucose 40% Gel 15 Gm Tube) 15 - 30 gm PO UD PRN; Protocol PRN Reason: Hypoglycemia Protocol Stop: 08/27/23 21:05 Insulin Aspart (Insulin Aspart Per Unit Charge) 0 units SC ACHS [place] Stop: 08/27/23 21:05 Last Admin: 08/08/23 07:53 Dose: 5 units Insulin Glargine (Lantus Per Unit Charge) 8 units SC HS [facility] Stop: 09/03/23 20:59 Last Admin: 08/07/23 21:17 Dose: 8 units Lactobacillus Acidophilus (Advanced Probiotic 1250 Mg Capsule) 2 cap PO DAILY [place] Stop: 09/02/23 14:29 Last Admin: 08/08/23 07:53 Dose: 2 cap Magnesium Oxide (Magnesium Oxide 400 Mg Tab) 400 mg PO BID [facility] Stop: 09/04/23 08:59 Last Admin: 08/08/23 07:54 Dose: 400 mg Melatonin (Melatonin 3 Mg Tab) 3 mg PO HS PRN PRN Reason: Sleep Stop: 09/03/23 00:44 Last Admin: 08/06/23 20:10 Dose: 3 mg Miscellaneous (Carbohydrates For Hypoglycemia ) 15 - 30 gm PO UD PRN PRN Reason: Hypoglycemia Protocol Stop: 08/27/23 21:05 Miscellaneous Information (Pharmacy Glycemic Mgmt Consult) 1 each N/A UD PRN PRN Reason: Consult Stop: 08/27/23 21:05 Olanzapine (Olanzapine 10 Mg/2.1 Ml Sdv) 2.5 mg IM Q6H PRN PRN Reason: Agitation Stop: 08/27/23 20:44 Last Admin: 08/06/23 19:10 Dose: 2.5 mg Ondansetron HCl (Ondansetron Inj 2 Mg/Ml 2 Ml Vial) 4 mg IV Q6H PRN PRN Reason: Nausea Stop: 08/27/23 21:05 Polyethylene Glycol (Polyethylene (Miralax) 17 Gm Pack) 17 gm PO DAILY PRN PRN Reason: Constipation Stop: 08/27/23 21:05 Polyethylene Glycol (Polyethylene (Miralax) 17 Gm Pack) 17 gm PO DAILY [place] Stop: 08/28/23 08:59 Last Admin: 08/08/23 07:55 Dose: Not Given Tamsulosin HCl (Tamsulosin Hcl 0.4 Mg Cap) 0.4 mg PO HS [facility] Stop: 08/28/23 20:59 Last Admin: 08/07/23 20:24 Dose: 0.4 mg Thiamine HCl (Thiamine Hcl 100 Mg Tab) 100 mg PO QAM [facility] Stop: 08/28/23 08:59 Last Admin: 08/08/23 07:54 Dose: 100 mg
--- NOTE | 2023-08-08 12:33 | Pharmacy Report ---
Pharmacy Glycemic Short Note 2 - Date of Service August 08, 2023 - Glycemic Short BSG Results (Last 24 hours): 08/07/23 08/07/23 08/08/23 16:17 20:03 05:39 Glucose 120 H POC Glucose 111 H 121 H 08/08/23 08/08/23 07:09 11:32 Glucose POC Glucose 130 H 220 H OUTPATIENT ANTIDIABETIC REGIMEN: * reported non-compliance w/ metformin HbA1c: 8.6% (07/29/23) ASSESSMENT: 08/08 * BSGs yesterday were [phone] mg/dL. - patient received 23 units of insulin (8 units of basal and 15 units of bolus). * Fasting today is 130 mg/dL. * Continue Lantus. * Lunch BSGs are elevated- patient may require tighter Novolog with breakfast. 08/07 * BSGs yesterday were [phone] mg/dL. Patient received 21 units of insulin (8 units of basal and 13 units of bolus). * Fasting today is 130 mg/dL. * Continue regimen as BSGs well controlled. 08/03: * Patient received total 13 units of insulin yesterday all of which was bolus. * Fasting BSG today was 170 mg/dl . A small dose of basal Lantus 5 units added for HS for better fasting BSG. * Novolog parameters continued the same. * Renal function has improved since admission. 08/02: * Alexsander received 13 units of bolus insulin yesterday * Seems to be tolerating diet better per nursing documentation * No basal insulin required the past 3 days, will discontinue scaled order for HS Lantus * Novolog parameters seem to be adequately covering/correcting, continue current parameters 07/31: * Alexsander received no units of insulin yesterday, does not appear to have eaten much yesterday per nursing documentation * Fasting BSG slightly below goal range this AM, will continue small Lantus scale HS based on BSG * Difficult to assess Novolog efficacy, continue current parameters. 07/29: * DANGELO is an 83 year old male who presented to ED on 07/28/23 w/ feelings of general unwellness/weakness and polyuria * Found to have BSG of 358 mg/dL - responded well to IV insulin bolus. Patient also w/ suspected bladder outlet obstruction. * Hyperglycemic today in 200s. Will conservatively increase insulin regimen today and add overnight checks tonight. * Diet ordered. IV fluids (NSS + 20 KCl @100 mL/hr) infusing currently. PLAN FOR INPATIENT GLYCEMIC CONTROL: * Basal insulin * Lantus 8 units SQ HS * Bolus insulin * NovoLog per scale ACHS or Q6hrs while NPO * Goal Range: Low 110 mg/dL - High 140 mg/dL * Correction Factor: 35 mg/dL/unit * Nutritional / Prandial insulin per carb ratio of 1 unit per 12 grams CHO consumed
--- NOTE | 2023-08-08 15:10 | Discharge Summary ---
Date of Service August 08, 2023 Admission HPI Per Admitting Provider Patient is an 83-year-old male with history of diabetes mellitus, hypertension, hyperlipidemia, BPH, CAD S/P stent and other medical problems presents with history of generalized weakness, increased urinary frequency, decreased urinary flow, bandlike hypogastric abdominal pain and ambulatory dysfunction with balance issues since 4 to 5 days duration. Patient is a very poor historian. No old records available for review. Patient's history is also obtained from patient's ex- at bedside. She admits to have poor appetite since Monday. His ex- noticed him to have slow response to questions. He admits to drinking alcohol on daily basis. Last known alcohol drink was about a week ago. Patient admits to being on aspirin, statin, Flomax in the past but has not been taking his medications since 1 year and has not been following with his physician. He reports having constipation last bowel movement on Monday. Denies any nausea, vomiting, chest pain, shortness of breath, dizziness, cough, fever, chills, fall, head trauma, LOC, headache, numbness, change in vision, diarrhea, dysuria, hematuria. Admission Exam Per Admitting Provider Vitals signs as noted above General Appearance:Moderately built and nourished, no apparent distress Head: normocephalic, Atraumatic Eyes: normal inspection, EOMI Neck: supple, Trachea midline Respiratory/Chest: Normal breath sounds, CTA, No accessory muscle use Cardiovascular: S1, S2, No murmur Abdomen/GI:Soft, mild hypogastric tender, +distended, Bowel sounds present, +Umb ilical hernia Extremities/Musculoskeletal:normal inspection, Trace pedal edema Neurologic/Psych:AAOX3, grossly no focal neurological deficits Skin: normal color, warm Principal Diagnosis Acute metabolic encephalopathy: Alcohol abuse with withdrawal: Acute embolic stroke: Acute renal failure: Acute urinary retention: Paroxysmal atrial fibrillation with RVR: CAD (coronary artery disease): DMII (diabetes mellitus, type 2): Discharge Exam General- No acute distress Head- atraumatic Eyes- PERRL, EOMI, ENT- oropharynx clear Neck- supple, no JVD Lungs- clear to auscultation Heart- regular rhythm, No tachycardia Abdomen- normal bowel sounds, soft, nontender Extremities- no calf tenderness Neuro- alert, awake, PERRL, EOMI; no facial palsy; no dysarthria Skin- warm & dry Discharge Data Allergies Allergy/AdvReac Type Severity Reaction Status Date / Time Sulfa (Sulfonamide Allergy Unknown JAUNDICE Verified 07/28/23 16:08 Antibiotics) Consultations 07/28/23 17:26 ED Decision to Admit Stat 07/28/23 21:06 Consult Nephrology Routine Consult Urology Routine 07/29/23 03:10 Consult Cardiology Routine Ordered Studies 07/28/23 12:32 CT abd pelvis wo con Stat 07/28/23 20:52 CT head/brain wo con Urgent 08/01/23 08:15 MR brain wo con Routine Laboratory Results WBC 6.76 K/ul (4.8-10.8) 08/07/23 05:27 RBC 4.73 M/uL (4.70-6.10) 08/07/23 05:27 Hgb 14.0 g/dl (14.0-18.0) 08/07/23 05:27 Hct 40.7 % (42.0-52.0) L 08/07/23 05:27 MCV 86.0 fL (80.0-100.0) 08/07/23 05:27 MCH 29.6 pg (25.0-34.0) 08/07/23 05:27 MCHC 34.4 g/dL (32.0-36.0) 08/07/23 05:27 RDW Std Deviation 41.9 fL (36.4-46.3) 08/07/23 05:27 RDW Coeff of Dangelo 13.3 % (11.5-14.5) 08/07/23 05:27 Plt Count 198 K/uL (130-400) 08/07/23 05:27 MPV 10.1 fL (9.4-12.4) 08/07/23 05:27 Immature Gran % (Auto) 0.8 % 07/28/23 13:42 Neut % (Auto) 71.8 % 07/28/23 13:42 Lymph % (Auto) 15.2 % 07/28/23 13:42 [place] % (Auto) 10.9 % 07/28/23 13:42 Eos % (Auto) 0.8 % 07/28/23 13:42 Baso % (Auto) 0.5 % 07/28/23 13:42 Neut # (Auto) 10.23 K/uL (1.40-6.50) H 07/28/23 13:42 Lymph # (Auto) 2.17 K/uL (1.20-3.40) 07/28/23 13:42 [place] # (Auto) 1.56 K/uL (0.11-0.59) H 07/28/23 13:42 Eos # (Auto) 0.11 K/uL (0.00-0.50) 07/28/23 13:42 Baso # (Auto) 0.07 K/uL (0.00-0.20) 07/28/23 13:42 Immature Gran # (Auto) 0.11 K/uL (0.01-0.20) 07/28/23 13:42 VBG pH 7.32 (7.36-7.41) L 07/28/23 13:42 VBG pCO2 49 mmHg (38-50) 07/28/23 13:42 VBG pO2 30 mmHg 07/28/23 13:42 VBG HCO3 25 mmol/L 07/28/23 13:42 VBG O2 Saturation < 60.0 % 07/28/23 13:42 VBG Base Excess -1.7 mEq/L 07/28/23 13:42 Sodium 136 mmol/L (136-145) 08/08/23 05:39 Potassium 4.1 mmol/L (3.5-5.1) 08/08/23 05:39 Chloride 101 mmol/L (98-107) 08/08/23 05:39 Carbon Dioxide 28 mmol/L (21-32) 08/08/23 05:39 Anion Gap 7 (3-11) 08/08/23 05:39 BUN 14 mg/dl (6-23) 08/08/23 05:39 Creatinine 0.97 mg/dl (0.6-1.4) 08/08/23 05:39 Est Cr Clr Drug Dosing 65.6 ml/min 08/08/23 05:39 Est GFR ( Amer) 84.5 ml/min 08/08/23 05:39 Est GFR (Non-Af Amer) 72.9 ml/min 08/08/23 05:39 BUN/Creatinine Ratio 14.4 (10-20) 08/08/23 05:39 Glucose 120 mg/dl (70-99(Fasting)) H 08/08/23 05:39 POC Glucose 157 mg/dl (70-99) H 08/08/23 16:24 Estimat Average Glucose 200 mg/dl 07/29/23 04:03 Hemoglobin A1c 8.6 % (4.5-5.6) H 07/29/23 04:03 Osmolality 314 mOsm/kg (280-300) H 07/28/23 13:42 Calcium 8.8 mg/dl (8.6-10.3) 08/08/23 05:39 Phosphorus 3.2 mg/dl (2.5-4.9) 08/08/23 05:39 Magnesium 1.9 mg/dl (1.7-2.4) 08/08/23 05:39 Total Bilirubin 4.2 mg/dl (0.2-1.0) H 07/28/23 13:42 AST 12 U/L (13-39) L 07/28/23 13:42 ALT 16 U/L (7-52) 07/28/23 13:42 Alkaline Phosphatase 136 U/L (34-104) H 07/28/23 13:42 Troponin I High Sens 14.7 pg/ml (0-20) 07/28/23 13:42 Total Protein 7.8 gm/dl (6.0-8.3) 07/28/23 13:42 Albumin 4.5 gm/dl (3.4-5.0) 07/28/23 13:42 Globulin 3.3 gm/dl (2.5-4.0) 07/28/23 13:42 Albumin/Globulin Ratio 1.4 (0.9-2) 07/28/23 13:42 Triglycerides 106 mg/dl (0-150) 07/29/23 04:03 Cholesterol 139 mg/dl (0-200) 07/29/23 04:03 LDL Cholesterol, Calc 92 mg/dl 07/29/23 04:03 VLDL Cholesterol, Calc 21 mg/dl (0-30) 07/29/23 04:03 HDL Cholesterol 26 mg/dl 07/29/23 04:03 Cholesterol/HDL Ratio 5.3 (0-5) H 07/29/23 04:03 Urine Color Yellow 07/28/23 13:41 Urine Appearance Clear (Clear) 07/28/23 13:41 Urine pH 5.5 (4.5-7.5) 07/28/23 13:41 Ur Specific [place] 1.015 (1.000-1.030) 07/28/23 13:41 Urine Protein Negative (Negative) 07/28/23 13:41 Urine Glucose (UA) 2+ (Negative) H 07/28/23 13:41 Urine Ketones Negative (Negative) 07/28/23 13:41 Urine Blood Negative (Negative) 07/28/23 13:41 Urine Nitrite Negative (Negative) 07/28/23 13:41 Urine Bilirubin Negative (Negative) 07/28/23 13:41 Urine Urobilinogen Negative (Negative) 07/28/23 13:41 Ur Leukocyte Esterase Negative (Negative) 07/28/23 13:41 SARS-CoV-2 (PCR) NEGATIVE (Negative) 07/28/23 13:32 Influenza Type A (PCR) Negative (Neg) 07/28/23 13:32 Influenza Type B (PCR) Negative (Neg) 07/28/23 13:32 RSV (RT-PCR) Negative (Neg) 07/28/23 13:32 Impressions Chest X-Ray 07/28/23 12:28 SINGLE VIEW CHEST CLINICAL HISTORY: Generalized weakness. FINDINGS: A PA chest radiograph is compared to study dated 01/22/2008. The heart is top normal for projection noting atherosclerotic calcification of the thoracic aorta. The pulmonary vasculature is noncongested. Chronic interstitial thickening similar to previous. Suspect a small right pleural effusion. Foci of parenchymal scarring are seen at the right lung base. There is no airspace consolidation typical for pneumonia. No pneumothorax is seen. The skeletal structures are osteopenic. The bony thorax is grossly intact. Chronic widening at the right acromioclavicular joint is similar to previous. Cholecystectomy clips are noted in the right upper quadrant. IMPRESSION: 1. Suspect a small right pleural effusion. 2. No airspace consolidation is seen typical for pneumonia. ACT 112: Negative or not required by law. Electronically signed by: Dallas Ramirez M.D. 07/28/2023 1:18 PM Abdomen/Pelvis CT 07/28/23 12:32 CT abd pelvis wo con CLINICAL HISTORY: lower abdominal pain; weakness; fever TECHNIQUE: Helical axial images of the abdomen and pelvis were obtained. Automated dose lowering techniques and/or adjustment according to patient size were utilized for this exam. This exam was performed without intravenous co ntrast. CT DOSE: 1391.25 mGy.cm COMPARISON: Comparison is made to pelvis radiograph 02/22/2008 FINDINGS: Lower chest: Bibasilar atelectasis versus scarring is seen. Liver: Unremarkable. No focal lesions are seen. Gallbladder and biliary tree: Patient is status post cholecystectomy. No intra- or extrahepatic biliary ductal dilation. Pancreas: Fatty replacement of the pancreas is seen. Spleen: Unremarkable. Adrenals: Unremarkable. Kidneys and ureters: Left hydronephrosis and hydroureter is seen with prominent perinephric stranding. To a lesser extent there is also right hydronephrosis and hydroureter. A cyst is in the left kidney inferior pole. Bladder: Bladder is markedly distended. Reproductive organs: Prostatomegaly is seen. Bowel: Diverticulosis is seen without evidence of diverticulitis. Patient appears status post appendectomy. There is a small hiatal hernia. Lymph nodes Retroperitoneal: Unremarkable. Pelvic: Unremarkable. Mesenteric: Unremarkable. Peritoneum: Fat stranding is seen most prominent in the left retroperitoneum and there is a small amount of fluid in the left pelvis. Vessels: Atherosclerotic calcifications are seen. Abdominal wall: A fat-containing umbilical hernia is seen. Bones: Degenerative changes in the visualized spine. IMPRESSION: 1. Bilateral hydronephrosis and hydroureter, left greater than right, is likely secondary to chronic bladder outlet obstruction. 2. Diverticulosis without diverticulitis. ACT 112: Negative or not required by law. Electronically signed by: Parvez Lopez M.D. 07/28/2023 3:[address] 07/28/23 20:52 Exam(s): CT HEAD Without Contrast EXAM: CT Head Without Intravenous Contrast CLINICAL HISTORY: Reason for exam: Confused. TECHNIQUE: Axial computed tomography images of the head/brain without intravenous contrast. CTDI is 36.18 mGy and DLP is 546.36 mGy-cm. Automated exposure control was utilized for the study. A dose lowering technique was utilized adhering to the principles of ALARA. COMPARISON: No relevant prior studies available. FINDINGS: No acute intracranial hemorrhage. No midline shift or mass effect. The territorial [place]-white matter differentiation is maintained throughout. Age-related cerebral volume loss. Periventricular and subcortical white matter hypoattenuation, consistent with chronic microangiopathy. The visualized orbits appear grossly unremarkable. The calvarium is intact. The visualized paranasal sinuses and mastoid air cells are grossly clear. IMPRESSION: No acute intracranial hemorrhage, midline shift, or mass effect. Electronically signed by: Bebeto Dudley MD 07/28/23 21:41 PM Orbit X-Ray 08/01/23 07:43 BONY ORBITS 3 VIEWS CLINICAL HISTORY: MRI clearance. FINDINGS: 3 views of the bony orbits are obtained. No prior studies are available for comparison at the time of dictation. There is no radiodense/metallic foreign body seen in the region of the bony orbits. The bony orbits are intact as imaged. The visualized paranasal sinuses and the mastoid air cells appear clear. The imaged calvarium appears intact. The patient is edentulous. IMPRESSION: There is no radiodense/metallic foreign body seen in the region of the bony orbits. ACT 112: Negative or not required by law. Electronically signed by: Dallas Ramirez M.D. 08/01/2023 8:48 AM Brain MRI 08/01/23 08:15 MRI OF THE BRAIN WITHOUT IV CONTRAST CLINICAL HISTORY: Change in mental status. Ataxia. COMPARISON STUDY: CT of the brain dated 07/28/2023. TECHNIQUE: MRI of the brain was performed utilizing various T1 and T2-weighted sequences in the axial, sagittal, and coronal planes. IV contrast was not administered for this examination. FINDINGS: Brain parenchyma: There is age-related involutional change noting moderate subcortical and periventricular microangiopathic disease. There are punctate foci of restricted diffusion seen within the high frontal white matter bilaterally, within the left posterior periventricular white matter, and within the left temporal lobe white matter consistent with acute to subacute lacunar infarcts. There is also a focus of restricted diffusion in the left temporal lobe white matter which measures up to 9 mm. These are consistent with acute subacute lacunar infarcts. There is no hemorrhage or mass effect. No extra- axial fluid collection is seen. The cerebellar tonsils are normal in configuration. Ventricles, sulci, and cisterns: Prominent secondary to involutional change. Pituitary and sella: Unremarkable. Intracranial vasculature: Normal flow voids are maintained at the skull base. Orbits: The bony orbits are grossly intact. Orbital contents are normal in ap pearance noting bilateral ocular lens implants. Sinuses and mastoids: Clear. Calvarium: Unremarkable. Cervical cord: Partially visualized cervical spinal cord is normal in morphology and signal intensity. IMPRESSION: 1. There are numerous (at least 5) subcentimeter foci of restricted diffusion in the bilateral white matter as above consistent with acute to subacute lacunar infarcts. The distribution favors an embolic phenomenon. 2. There is no hemorrhage or mass effect. ACT 112: Negative or not required by law. Electronically signed by: Dallas Ramirez M.D. 08/01/2023 9:17 AM Hospital Course (1) Acute metabolic encephalopathy: Intermittent confusion is likely a combination of history of heavy ETOH use, dementia and recent stroke. (2) Alcohol abuse with withdrawal: Resolved. Cont thiamine and folic acid. Combative behavior intermittently requiring Zyprexa. Possible contribution from underlying cognitive inhibition per records. Requires 1:1 usually in the evenings. (3) Acute embolic stroke: Recent afib with RVR during admission MRI showed numerous (at least 5) subcentimeter foci of restricted diffusion in the bilateral white matter as above consistent with acute to subacute lacunar infarcts. Continue apixaban. No neurology document found Cont supportive care measures. Continue PT/OT eval Follow up with neurology outpatient (4) Acute renal failure: Likely related to a combination of post obstructive uropathy 2/2 BPH and AUR with dehydration in the setting of alcohol abuse. Creatinine 1.1 today resolved (5) Acute urinary retention: Bilateral hydronephrosis on CT and acute urinary retention likely contributing to ANSELMO. Creatinine improved with alicea in place. Evaluated by Urology. Cont Flomax for BPH. TOV in one week per urology at their office. Continue alicea cath on discharge (6) Paroxysmal atrial fibrillation with RVR: NSVT - Nonsustained ventricular tachycardia with overall preserved LV systolic function Sinus with blocked PACs, junctional rhythm Initially presented with Afib with rapid ventricular response. Amio drip initiated and also oral metoprolol. Metoprolol stopped 2/2 lower heart rates and intermittent blocked PACs. Amio also stopped and he remained in sinus rhythm. Apixaban started as noted above. Plan was to avoid AV renetta agents per cardiology given resting bradycardia. However later in his hospital course pt had episode of 22 beat VT, reportedly asymptomatic. Discussed with cardiology and was started on amiodarone (08/04/23). pt may need pacer in the future. Phlebitis/ poss. cellulitis - erythema noted at R forearm, pt denies tenderness - discussed w/ RN - warm compress, also started keflex - cont. to closely monitor, improved (7) CAD (coronary artery disease): chronic, appears stable. h/o stent placement. Denies chest pain or SOB. HS trop is negative. (8) DMII (diabetes mellitus, type 2): chronic, uncontrolled. Noncompliant with medication. A1C is 8.6. DVT proph: eliquis Full Code Disposition PT recommended inpatient rehab CM involved - plan for [facility] Total Time Total Time Spent Total Time Spent (In Minutes): 35 minutes Discharge Plan Discharge Items Patient Disposition: Transfer Inpatient Rehab Fac Reason For Visit: ANSELMO, AF Discharge Diagnosis: Acute metabolic encephalopathy: Alcohol abuse with withdrawal: Acute embolic stroke: Acute renal failure: Acute urinary retention: Paroxysmal atrial fibrillation with RVR: CAD (coronary artery disease): DMII (diabetes mellitus, type 2): Activity: Resume your previous activity Non-emergency contact: Primary Care Provider, Director Sales Training, Neurologist and Urologist Call non-emergency contact if: you have any medication questions Follow-up/Referrals: Sandi Romero MD, PhD [Physician] - (The Nephrology office will contact you for an appointment.) Viola Phillips PA-C [Physician [employer]] - (Date & Time 09/26/2023 11:20 AM Provider Viola Phillips PA-C Department Neurology [facility] ) Sohan Bridges MD [Physician] - (The Urology office will contact you for a follow up appointment.) Duane Aguila MD [Hospitalist] - 08/31/23 1:40 pm (Date & Time 08/31/2023 1:40 PM Provider Duane Aguila MD Department Family Medicine [facility] ) Diet: Carb Consistent or DM2 Addtl Attending Provider Instructions: Follow up with your primary care provider once discharge from rehab Follow with urology in 1 to 2 weeks for the urinary retention Follow up with Neurology for the acute stroke Follow up with cardiology for the management of the atrial fibrillation Continue physical and occupational therapy Chest TSH while on Amiodarone Will start on Januvia on discharge Continue monitor blood sugar and titrate Januvia Check CBC, BMP and magnesium in 1-2 week Keep [place] catheter on discharge until evaluating by urology Medication Instructions: Eliquis Your condition is typically treated with an anticoagulant. Anticoagulants will thin your blood to help prevent new clots. You should take her medication exactly as directed. Never skip a dose. Never take a double dose. If you miss a dose, take it as soon as you remember. Avoid NSAIDs (Motrin, Aleve, Naproxen, Ibuprofen, Advil, Meloxicam,..) due to risks of bleeding Call your Primary Care doctor if you experience any of the following: Swelling or Pain in your leg Sudden, continuous pain deep in a muscle Pain that worsens when you are active or when you stand still for a long time Chest Pain Sudden Shortness of Breath Rapid or pounding heart beat Fainting Dizziness Cough with blood or bloody sputum Sweating more than normal Bruises Heavy or uncontrolled bleeding Blood in your urine, stool or vomit Black or tarry stools Pending Studies at Discharge: No Stand-Alone Forms: My [facility] Skilled Items Patient informed of condition?: Yes DNR: No Discharge Level of Care: Acute rehab Communicable Disease: No Discharge Prognosis: Stable Lines: None Urinary Catheter: Yes Medications and DC Order Prescriptions: New amiodarone 200 mg Tablet 200 mg PO QAM 30 Days Qty: 30 0RF thiamine HCl (vitamin B1) 100 mg Tablet 100 mg PO QAM 30 Days Qty: 30 0RF folic acid 400 mcg Tablet 400 mcg PO QAM 30 Days Qty: 30 0RF aspirin 81 mg Tablet,Delayed Release (Dr/Ec) 81 mg PO DAILY 30 Days Qty: 30 0RF magnesium oxide 400 mg (241.3 mg magnesium) Tablet 400 mg PO DAILY Qty: 30 0RF tamsulosin 0.4 mg Capsule 0.4 mg PO HS Qty: 30 0RF Eliquis 5 mg Tablet 5 mg PO BID 30 Days Qty: 60 0RF Januvia 50 mg tablet 50 mg PO DAILY Qty: 30 0RF Continued turmeric 400 mg Capsule 400 mg PO DAILY No Action cephalexin 250 mg capsule 250 mg PO BID 5 Days Qty: 10 0RF Discharge Orders: Discharge Order (Routine); Ordered 08/08/23 Ordered By: Evi Solis/Other Patient Handouts: High Blood Sugar (Hyperglycemia), Managing Type 2 Diabetes, Alcohol Withdrawal: What to Expect, AFib Dc, AFib Admission Data Admit Date/Time: 07/28/23 17:16 Attending Provider: Evi Edgar Admit Provider: John Mijares Primary Care Provider: PCP,OSIRIS Other Providers: John Mijares; Tiana Rios; Baljinder Porter Other Interventions: Discharge Summary Assessment (RN) Last Done: 08/08/23 17:17
--- NOTE | 2023-08-11 14:22 | Coding Query ---
PRESENT ON ADMISSION QUERY To promote full compliance with coding requirements relating to pateint care, physician participation is requested in all cases of fur comber uncertainty. Please assist us with the question(s) below: Please place an X within the parenthesis (x). The following diagnosis(es) listed in this patient's medical record require physician assistance to determine if they were present on admission (POA) or not. Please advise for each diagnosis whether it was present on admission, not present on admission, or if it was clinically undetermined. 1.(Fruit Trimmer insert Diagnosis and where it was documented in the record) Embolic Stroke ( ) Present On Admission ( x) Not Present On Admission ( ) Clinically Undetermined Thank you SWATHI Desir CCS *Definition of the present on admission (POA)-Present on admission is defined as present at the time the order for inpatient admission occurs. Conditions that develop during an outpatient encounter prior to a written order for inpatient admission (including emergency department, observation, or outpatient surgery) are considered present on admission. MALCOMD
== END 2023-08-08 16:30 | DRG 698 ==
LOC: ED 12:18 → EDINP 17:16 → SUATTDRO 17:16 → 2S 20:54

== ENCOUNTER 2024-02-05 18:56 | Inpatient (IN) ==
[2024-02-05] MEDS: OPTIRAY 320 150ml IV ONE (19:03)
--- NOTE | 2024-02-05 19:08 | Emergency Department Note ---
Impression & Plan Acute CVA (cerebrovascular accident) ED Provider Note NAME: JUAN RESTREPO AGE: 83 SEX: Male INFORMANT: Patient ED PROVIDER(S): Juan Soriano MD CHIEF COMPLAINT: STroke like symptoms PLAN: Disposition: Outpatient prescription management: none Referral: MEDICAL DECISION MAKING: Patient presented because of strokelike symptoms. By EMS reports he was still within the window for TNK. He was made a stroke alert and was taken emergently to CT imaging. EMS did note that 15 minutes prior to arrival he had improvement of his right upper extremity. Nursing noted his right lower extremity had significant improvement and he was able to move it albeit still having weakness. By time he got from CT back to the examination room he had more improvement in the right lower extremity although still had weakness. An emergent consult was placed with [facility] tel[facility]roke, Dr. Garibay. I also have the nurse contact family to verify last known well time. We discussed his case and there was concern with his recent surgery as he noted he was still having some intermittent bleeding. Nursing then noted that family stated they found him down and do not know when the symptoms started. After discussion with Dr. Garibay with this new information the patient was felt not to be a good candidate for TNK given his unknown last well-known time and in addition the recent surgery. He did evaluate the patient via the telestroke computer. Discussed with radiology. Concern for vulnerable plaque as well as stenosis with possible subacute finding. He did recommend 81 mg of aspirin if this was cleared by urology. He also recommended typical stroke admission and workup. I discussed the case with Dr. Madison. He stated that medicine can proceed with aspirin as well as reinitiation of the Eliquis as they see fit. On reassessment the patient was doing even better. He had some minimal weakness in the right lower extremity. He notes that this is getting close to baseline. [facility], Dr. Spicer. Patient was evaluated in the ER and admitted for further management Care/management discussed with: none Level of care consideration(s): After review of the information above and other included data, I feel the patient requires escalation of care to admission Triage Nursing notes: reviewed and agree them. Vital Signs: reviewed and remarkable for no significant abnormalities Additional History obtained from: EMS Chronic Medical/Social Conditions affecting care: Hypertension, paroxysmal atrial fibrillation Prior/ Outside/ External records reviewed: none Differential Diagnosis: CVA, TIA, Infection, dehydration, metabolic abnormality, hypo/hyperglycemia, electrolyte disturbance, anemia, hypoxia, cardiac sources, intracerebral event, toxicologic, neurologic, as well as other pathologies. Diagnostics, independently interpreted by me: ECG: Twelve-lead ECG revealssinus bradycardia [address] elevation or depression. Cardiac Monitoring:Cardiac monitoring ordered by me: The patient was placed on continuous cardiac monitoring and observed. It revealed a sinus bradycardia 56 beats per minute without ectopy or evidence of dysrhythmia. Medical decision rules: none Imaging studies: CT scan of the head is concerning for subacute left infarct. No intracranial hemorrhage. Chest x-ray. Findings: A chest x-ray was performed and revealed no pneumothorax, effusion, infiltrate, pulmonary edema, free air under the diaphragm, or wide mediastinum. Impression: No acute disease. HPI: 83 year old Male arrives for evaluation of stroke like symptoms.This started reportedly 1:20 hr [employer] and is persisting. The patient also notes right arm and leg weakness. EMS also reported slurred speech. The patient has been given no medication for relieving factors. Current pain is rated as 0/10. EMS noted the patient's blood pressure was minimally elevated in the 140s systolic. He was in a sinus rhythm. Patient is normally on Eliquis for paroxysmal atrial fibrillation but this was stopped roughly 10 days ago due to a surgery on his prostate, TURP, 6 days ago. Patient does note some intermittent urinary bleeding. pt denies LOC, headache, fevers, chills, visual changes, neck pain, chest pain, breathing difficulties, nausea, vomiting, abdominal pain, back pain, melena, hematochezia, or other complaints. PAST MEDICAL HISTORY: See Below, TURP PAST SURGICAL HISTORY: See Below, SOCIAL HISTORY: See Below, retired HOME MEDICATIONS: See Below ALLERGIES: See Below VITALS: See Below PHYSICAL EXAMINATION: GENERAL: Awake, alert, nontoxic-appearing, in no distress HENT: Normocephalic, atraumatic. Oropharynx unremarkable. EYES: Normal conjunctiva. Sclera non-icteric. PERRLA. EOMI NECK: Inspection normal. Non-tender. Supple. No nuchal rigidity. FROM. No masses. RESPIRATORY: Clear to auscultation. No wheezes. No rales. Normal respiratory effort. CARDIAC: Normal rate. Normal rhythm. No murmurs. No rubs. Extremities warm and well perfused. Pulses equal. No JVD. GI: Soft, non-distended. No tenderness to palpation. No rebound or guarding. No masses. RECTAL: Deferred. MUSCULOSKELETAL: Atraumatic. Chest examination reveals no tenderness. The back is symmetrical on inspection without obvious abnormality. There is no CVA tenderness to palpation. No joint edema. LOWER EXTREMITIES: Calves are equal size bilaterally and non-tender. No edema. No discoloration. NEURO: Minimally confused sensorium. No sensory deficits noted. 4-5 strength in the right lower extremity noted. Drift noted in the right lower extremity. Speech mildly slurred. SKIN: No rash or jaundice noted. PROCEDURES: none CRITICAL CARE: none OBSERVATION NOTE: none Past Med/Surg History Problem List (Updated 02/06/24 @ 01:[address] MD) Stroke-like symptoms Acute CVA (cerebrovascular accident) (Acute) Malfunction of Alicea catheter (Acute) Encounter for pre-operative examination BPH NOS w ur obs/LUTS (Acute) HTN (hypertension) with goal to be determined Medical History (Updated 02/06/24 @ 01:[address] Sp[address] MD) Paroxysmal atrial fibrillation Dx'ed 07/28/23 during hospital admission reason for Eliquis, follows w/ [facility] Generalized weakness Indwelling Alicea catheter present Alicea not draining - seen in [facility] 01/24/24- had new alicea placed in ED Hypertension Tachy-maria fernanda syndrome Borderline- avoid AV renetta blocking agents per cardio Ventricular tachycardia Nonsustained VT- on Amiodarone per cardio records HLD (hyperlipidemia) Hx of myocardial infarction 2004 Hx of hepatitis at a "very young age" Poor historian PAT interview done by "friend" - vague on certain details 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, walks with a shuffle, went to [facility] for rehab Alcohol abuse with withdrawal hx -quit 06/2023 DMII (diabetes mellitus, type 2) BPH (benign prostatic hyperplasia) CAD (coronary artery disease) s/p stent 2004 (per cardio records "remote PCI (to unknown vessel)") Surgical History History of cataract surgery bilateral History of heart artery stent x1 stent (2004) History of hip replacement History of cholecystectomy Hx of cardiac catheterization 2004 x 1 stent, following MA; follows w/ [facility] Hx of cystoscopy Family History Mother Hypertension Father Cancer Other No family history of adverse response to anesthesia Social History Smoking Status: Never smoker Tobacco Type: Smokeless Tobacco (Dip or Chew) Second Hand Exposure: No; Do You Dip or Chew Tobacco: Yes (chews daily (ex- - "thinks") - advised on policy by nursing); Hx Alcohol Use: No (hx heavy alcohol use - quit 06/2023) Hx Substance Use: No Preferred Language: Kyrgyz Strip Picker Required: No Beliefs That Will Affect Care: None Current Living Situation: Family Current Living Situation Comment: lives w/ son Feels Safe at Home: Yes Assistive Devices: Denture - Upper and Denture - Lower Allergies Allergies Allergy/AdvReac Type Severity Reaction Status Date / Time Sulfa (Sulfonamide Allergy Unknown JAUNDICE Verified 02/05/24 20:39 Antibiotics) Home Meds Home Medications Medication Instructions Recorded Confirmed losartan 50 mg tablet 50 mg PO QAM 09/01/23 02/05/24 metformin 500 mg tablet 500 mg PO BIDWMEAL 09/01/23 02/05/24 amiodarone 200 mg tablet 200 mg PO QAM 10/16/23 02/05/24 apixaban 5 mg tablet (Eliquis) 5 mg PO BID 10/16/23 02/05/24 aspirin 81 mg capsule 81 mg PO QAM 10/16/23 02/05/24 docusate sodium 100 mg capsule 100 mg PO Q OTHER DAY PRN 01/12/24 02/05/24 (Stool Softener) Constipation magnesium oxide 400 mg (241.3 mg 400 mg PO QAM 02/05/24 02/05/24 magnesium) tablet sitagliptin phosphate 50 mg tablet 50 mg PO QAM 02/05/24 02/05/24 (Januvia) Previous Rx's Medication Instructions Recorded tamsulosin 0.4 mg capsule 0.4 mg PO HS #30 caps 08/08/23 Results & Data (ED) Vital Signs Vital Signs - 24 hr 02/05/24 19:15 02/05/24 19:18 02/05/24 19:30 Temperature Temperature Source Pulse Rate 52 L 52 L 56 L Pulse Rate [Left Apical] Pulse Rate from SpO2 Sensor 51 L Respiratory Rate 19 14 Respiratory Effort / Characteristics Respiratory Depth Respiratory Pattern Blood Pressure 149/68 H Blood Pressure [Right Arm] Blood Pressure Mean 84 Blood Pressure Mean [Right Arm] Pulse Oximetry 92 95 Oxygen Delivery Method Room Air Room Air Sepsis Recent Fever Within 48 Hours Sepsis New/Unexplained Change in Mental Status Sepsis Action Taken by Nursing 02/05/24 19:36 02/05/24 20:00 02/05/24 20:00 Temperature 36.8 C Temperature Source Oral Pulse Rate 51 L Pulse Rate [Left Apical] Pulse Rate from SpO2 Sensor 54 L Respiratory Rate 18 Respiratory Effort / Characteristics Respiratory Depth Respiratory Pattern Blood Pressure 136/92 Blood Pressure [Right Arm] Blood Pressure Mean 106 Blood Pressure Mean [Right Arm] Pulse Oximetry 95 93 Oxygen Delivery Method Room Air Sepsis Recent Fever Within 48 Hours No Sepsis New/Unexplained Change in Mental Status No Sepsis Action Taken by Nursing No Action Required 02/05/24 20:30 02/05/24 21:36 02/05/24 21:50 Temperature Temperature Source Pulse Rate 49 L 51 L Pulse Rate [Left Apical] Pulse Rate from SpO2 Sensor 52 L 49 L Respiratory Rate 16 22 20 Respiratory Effort / Characteristics Respiratory Depth Respiratory Pattern Blood Pressure 138/73 142/77 H 124/57 L Blood Pressure [Right Arm] Blood Pressure Mean 94 98 84 Blood Pressure Mean [Right Arm] Pulse Oximetry 96 93 95 Oxygen Delivery Method Room Air Room Air Room Air Sepsis Recent Fever Within 48 Hours Sepsis New/Unexplained Change in Mental Status Sepsis Action Taken by Nursing 02/05/24 22:08 02/05/24 22:30 02/05/24 23:04 Temperature Temperature Source Pulse Rate 64 57 L Pulse Rate [Left Apical] 50 L Pulse Rate from SpO2 Sensor Respiratory Rate 17 17 Respiratory Effort / Characteristics Non-Labored Spontaneous Respiratory Depth Normal Respiratory Pattern Regular Blood Pressure Blood Pressure [Right Arm] 135/70 Blood Pressure Mean Blood Pressure Mean [Right Arm] 91 Pulse Oximetry 95 Oxygen Delivery Method Room Air Sepsis Recent Fever Within 48 Hours Sepsis New/Unexplained Change in Mental Status Sepsis Action Taken by Nursing 02/05/24 23:09 02/05/24 23:30 02/05/24 23:57 Temperature Temperature Source Pulse Rate 51 L 49 L 53 L Pulse Rate [Left Apical] Pulse Rate from SpO2 Sensor Respiratory Rate 22 23 21 Respiratory Effort / Characteristics Respiratory Depth Respiratory Pattern Blood Pressure Blood Pressure [Right Arm] Blood Pressure Mean Blood Pressure Mean [Right Arm] Pulse Oximetry Oxygen Delivery Method Sepsis Recent Fever Within 48 Hours Sepsis New/Unexplained Change in Mental Status Sepsis Action Taken by Nursing 02/06/24 00:00 02/06/24 00:00 02/06/24 00:18 Temperature Temperature Source Pulse Rate 52 L Pulse Rate [Left Apical] 51 L Pulse Rate from SpO2 Sensor Respiratory Rate 16 16 Respiratory Effort / Characteristics Non-Labored Respiratory Depth Normal Respiratory Pattern Blood Pressure 124/69 Blood Pressure [Right Arm] 124/69 Blood Pressure Mean 78 Blood Pressure Mean [Right Arm] 87 Pulse Oximetry 97 Oxygen Delivery Method Room Air Sepsis Recent Fever Within 48 Hours Sepsis New/Unexplained Change in Mental Status Sepsis Action Taken by Nursing 02/06/24 00:39 Temperature Temperature Source Pulse Rate 51 L Pulse Rate [Left Apical] Pulse Rate from SpO2 Sensor Respiratory Rate 22 Respiratory Effort / Characteristics Respiratory Depth Respiratory Pattern Blood Pressure Blood Pressure [Right Arm] Blood Pressure Mean Blood Pressure Mean [Right Arm] Pulse Oximetry Oxygen Delivery Method Sepsis Recent Fever Within 48 Hours Sepsis New/Unexplained Change in Mental Status Sepsis Action Taken by Nursing Laboratory Data 02/06/24 03:32 02/05/24 19:22 Lab Results 02/05/24 02/05/24 02/05/24 Range/Units 19:14 19:22 21:20 WBC 2.98 L (4.8-10.8) K/ul RBC 4.28 L (4.70-6.10) M/uL Hgb 11.5 L (14.0-18.0) g/dl Hct 35.0 L (42.0-52.0) % MCV 81.8 (80.0-100.0) fL MCH 26.9 (25.0-34.0) pg MCHC 32.9 (32.0-36.0) g/dL RDW Std Deviation 43.0 (36.4-46.3) fL RDW Coeff of Dangelo 14.5 (11.5-14.5) % Plt Count 171 (130-400) K/uL MPV 9.6 (9.4-12.4) fL Immature Gran % (Auto) 0.3 % Neut % (Auto) 59.8 % Lymph % (Auto) 21.5 % Roosevelt % (Auto) 14.1 % Eos % (Auto) 3.0 % Baso % (Auto) 1.3 % Neut # (Auto) 1.78 (1.40-6.50) K/uL Lymph # (Auto) 0.64 L (1.20-3.40) K/uL Roosevelt # (Auto) 0.42 (0.11-0.59) K/uL Eos # (Auto) 0.09 (0.00-0.50) K/uL Baso # (Auto) 0.04 (0.00-0.20) K/uL Immature Gran # (Auto) 0.01 (0.01-0.20) K/uL PT 12.0 (9.0-12.0) Seconds INR 1.1 (0.9-1.1) APTT 31 (21-31) Seconds PTT Ratio 1.2 Sodium 136 (136-145) mmol/L Potassium 3.7 (3.5-5.1) mmol/L Chloride 104 (98-107) mmol/L Carbon Dioxide 27 (21-32) mmol/L Anion Gap 5 (3-11) BUN 14 (6-23) mg/dl Creatinine 1.10 (0.6-1.4) mg/dl Est Cr Clr Drug Dosing 55.3 ml/min Est GFR ( Amer) 72.6 ml/min Est GFR (Non-Af Amer) 62.6 ml/min BUN/Creatinine Ratio 12.7 (10-20) Glucose 162 H (70-99(Fasting)) mg/dl POC Glucose 153 H (70-99) mg/dl Calcium 8.2 L (8.6-10.3) mg/dl Magnesium 1.6 L (1.7-2.4) mg/dl Total Bilirubin 1.3 H (0.2-1.0) mg/dl AST 16 (13-39) U/L ALT 17 (7-52) U/L Alkaline Phosphatase 509 H (34-104) U/L Troponin I High Sens 6.2 (0-20) pg/ml Total Protein 6.5 (6.0-8.3) gm/dl Albumin 3.4 (3.4-5.0) gm/dl Globulin 3.1 (2.5-4.0) gm/dl Albumin/Globulin Ratio 1.1 (0.9-2) Urine Color Yellow Urine Appearance Clear (Clear) Urine pH 5.5 (4.5-7.5) Ur Specific [place] > 1.045 H (1.000-1.030) Urine Protein 1+ H (Negative) Urine Glucose (UA) Negative (Negative) Urine Ketones Trace H (Negative) Urine Blood 3+ H (Negative) Urine Nitrite Negative (Negative) Urine Bilirubin Negative (Negative) Urine Urobilinogen Negative (Negative) Ur Leukocyte Esterase 1+ H (Negative) Urine WBC (Auto) 21-50 H (0-5) /hpf Urine RBC (Auto) >20 H (0-2) /hpf U Hyaline Cast (Auto) 0-2 (0-2) /lpf U Epithel Cells (Auto) 0-2 (0-2) /hpf Urine Bacteria (Auto) None Seen (None Seen) Urine Yeast Present A (None Prsent) Blood Type O Positive Antibody Screen NEGATIVE Administered Medications Sodium Chloride (Nss) 1,000 mls @ 50 mls/hr IV .Q20H [place] Stop: 02/06/24 22:54 Last Admin: 02/06/24 03:10 Dose: 50 mls/hr Documented By: ZIYAD Magnesium Sulfate/Dextrose (Magnesium Sulfate / D5w) 1 gm in 100 mls @ 50 mls/hr IV Q2H [place] Stop: 02/06/24 07:14 Last Admin: 02/06/24 03:49 Dose: 50 mls/hr Documented By: RU Discontinued Medications Sodium Chloride (Nss) 1,000 mls @ 50 mls/hr IV .Q20H [place] Stop: 03/06/24 18:59 Last Infusion: 02/06/24 03:08 Dose: Infused Documented By: Admin: 02/05/24 19:58 Dose: 50 mls/hr Documented By: NICOLAS Ceftriaxone Sodium (Rocephin) 2,000 mg in 50 mls @ 100 mls/hr IV NOW STA Stop: 02/06/24 03:33 Last Admin: 02/06/24 03:10 Dose: 100 mls/hr Documented By: ZIYAD Ioversol (Optiray 320 150ml) 113 ml IV ONCE ONE Stop: 02/05/24 19:03 Last Admin: 02/05/24 19:03 Dose: 113 ml Documented By: [employer] Data Radiologist's Impression: Chest X-Ray 02/05/24 18:56 XR chest 1V portable CLINICAL HISTORY: neuro deficit, acute stroke suspected TECHNIQUE: Single frontal radiograph of the chest was obtained. Comparison: Comparison is made to chest radiograph 07/28/2023 FINDINGS: Exam is limited by patient rotation. The cardiomediastinal silhouette is normal. The lungs are clear. Blunting of the right hemidiaphragm is unchanged from prior exam compatible with scarring versus extrapleural fat. IMPRESSION: No acute chest disease. ACT 112: Negative or not required by law. Electronically signed by: Parvez Lopez M.D. 02/05/2024 10:[address] 02/05/24 18:56 CR Exam(s): CT HEAD Without Contrast EXAM: CT Head Without Intravenous Contrast CLINICAL HISTORY: Reason for exam: neuro deficit, acute stroke suspected. TECHNIQUE: Axial computed tomography images of the head/brain without intravenous contrast. Automated exposure control was utilized for the study. A dose lowering technique was utilized adhering to the principles of ALARA. Mild to moderate motion/streak artifact. COMPARISON: None. FINDINGS: Brain: Small lacunar infarct left posterior putamen, age indeterminate. No mass effect or acute , cortical infarct. No acute hemorrhage. Mild atrophy and chronic white matter disease. Ventricles: No hydrocephalus or midline shift. Bones/joints: No acute bony lesion. Soft tissues: No scalp hematoma. Visualized Sinuses: Clear. Mastoid air cells: No mastoid effusion. IMPRESSION: 1. Age indeterminate lacunar infarct left posterior putamen. 2. No acute cortical infarct, bleed, or definite acute intracranial abnormality. Communications: Call Doctor Stroke Electronically signed by: Marissa Floyd M.D. 02/05/24 19:36 PM Head CTA 02/05/24 18:56 CR Exam(s): CTA HEAD With Contrast IV Amt: 113 cc opti 320 EXAM: CT Angiography Head With Intravenous Contrast CLINICAL HISTORY: Reason for exam: neuro deficit, acute stroke suspected. Parox a-fib, taken off Eliquis, found acute right side weakness, improving. TECHNIQUE: Axial computed tomographic angiography images of the head with intravenous contrast. Automated exposure control was utilized for the study. A dose lowering technique was utilized adhering to the principles of ALARA. MIP reconstructed images were created and reviewed. CONTRAST: Patient received 113 cc opti 320 of IV contrast COMPARISON: None. FINDINGS: Right internal carotid artery: Patent. Right anterior cerebral artery: Patent. Right middle cerebral artery: Patent. Right posterior cerebral artery: Patent. Right vertebral artery: Patent. Left internal carotid artery: Patent. Left anterior cerebral artery: Patent. Left middle cerebral artery: Patent. High grade stenosis M2 bifurcation branches. Left posterior cerebral artery: Patent. Left vertebral artery: Patent. Basilar artery: Patent. Other: IMPRESSION: 1. High grade stenosis M2 branches. 2. No aneurysm or large vessel occlusion. 3. d/w DrJennifer Communications: Call Doctor Stroke Electronically signed by: Marissa Floyd M.D. 02/05/24 19:46 PM Neck CTA 02/05/24 18:56 CR Exam(s): CTA NECK With Contrast IV Amt: 113 cc opti 320 EXAM: CT Angiography Neck With Intravenous Contrast CLINICAL HISTORY: Reason for exam: neuro deficit, acute stroke suspected. TECHNIQUE: Routine carotid CT angiography protocol was performed with intravenous contrast. NASCET criteria using the distal ICAs for comparison were used for evaluation of stenoses. Automated exposure control was utilized for the study. A dose lowering technique was utilized adhering to the principles of ALARA. MIP reconstructed images were created and reviewed. CONTRAST: Patient received 113 cc opti 320 of IV contrast COMPARISON: None. FINDINGS: Right common carotid artery: Patent. Right internal carotid artery: Patent. Dense, atherosclerotic plaque without significant stenosis. Right vertebral artery: Patent. Left common carotid artery: Patent. Left internal carotid artery: Patent. High risk, soft atherosclerotic fibrofatty plaque in addition to calcific atherosclerotic plaque, without significant stenosis. Left vertebral artery: Patent. Slight left dominant system. Other: Ulcerative, atherosclerotic plaque of the aortic arch. IMPRESSION: 1. 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 2. No dissection, occlusion, or significant stenosis. CAROTID STENOSIS REFERENCE USING NASCET CRITERIA: % ICA stenosis = (1 - narrowest ICA diameter/diameter of distal cervical ICA) x 100. Mild - <50% stenosis. Moderate - 50-69% stenosis. Severe - 70-94% stenosis. Near occlusion - 95-99% stenosis. Occluded - 100% stenosis. Communications: Call Doctor Stroke Electronically signed by: Marissa Floyd M.D. 02/05/24 19:43 PM Discharge Plan Visit Data Chief Complaint: Stroke Alert ED Provider: Juan Soriano Discharge Problem: Acute CVA (cerebrovascular accident) Discharge Instructions Interventions: ED Discharge Assessment Last Done: 02/06/24 02:56
[2024-02-05 19:35] LABS: Basophils # (auto) 0.04 K/uL (0.00-0.20); Basophils % (auto) 1.3 %; Eosinophils # (auto) 0.09 K/uL (0.00-0.50); Hemoglobin 11.5 g/dl (14.0-18.0); Immature Granulocytes # (auto) 0.01 K/uL (0.01-0.20); Immature Granulocytes % (auto) 0.3 %; Lymphocytes # (auto) 0.64 K/uL (1.20-3.40); Lymphocytes % (auto) 21.5 %; Mean Corpuscular Hemoglobin 26.9 pg (25.0-34.0); Mean Corpuscular Hgb Conc 32.9 g/dL (32.0-36.0); Mean Corpuscular Volume 81.8 fL (80.0-100.0); Mean Platelet Volume 9.6 fL (9.4-12.4); Monocytes # (auto) 0.42 K/uL (0.11-0.59); Monocytes % (auto) 14.1 %; Neutrophils # (auto) 1.78 K/uL (1.40-6.50); Neutrophils % (auto) 59.8 %; Platelet Count 171 K/uL (130-400); RDW Coefficient of Variation 14.5 % (11.5-14.5); Red Blood Count 4.28 M/uL (4.70-6.10); White Blood Count 2.98 K/ul (4.8-10.8)
--- NOTE | 2024-02-05 19:38 | CT Scan Report ---
Exam(s): CT HEAD Without Contrast EXAM: CT Head Without Intravenous Contrast CLINICAL HISTORY: Reason for exam: neuro deficit, acute stroke suspected. TECHNIQUE: Axial computed tomography images of the head/brain without intravenous contrast. Automated exposure control was utilized for the study. A dose lowering technique was utilized adhering to the principles of ALARA. Mild to moderate motion/streak artifact. COMPARISON: None. FINDINGS: Brain: Small lacunar infarct left posterior putamen, age indeterminate. No mass effect or acute , cortical infarct. No acute hemorrhage. Mild atrophy and chronic white matter disease. Ventricles: No hydrocephalus or midline shift. Bones/joints: No acute bony lesion. Soft tissues: No scalp hematoma. Visualized Sinuses: Clear. Mastoid air cells: No mastoid effusion. IMPRESSION: 1. Age indeterminate lacunar infarct left posterior putamen. 2. No acute cortical infarct, bleed, or definite acute intracranial abnormality. Communications: Call Doctor Stroke Electronically signed by: Marissa Floyd M.D. 02/05/24 19:36 PM
--- NOTE | 2024-02-05 19:44 | CT Scan Report ---
Exam(s): CTA NECK With Contrast IV Amt: 113 cc opti 320 EXAM: CT Angiography Neck With Intravenous Contrast CLINICAL HISTORY: Reason for exam: neuro deficit, acute stroke suspected. TECHNIQUE: Routine carotid CT angiography protocol was performed with intravenous contrast. NASCET criteria using the distal ICAs for comparison were used for evaluation of stenoses. Automated exposure control was utilized for the study. A dose lowering technique was utilized adhering to the principles of ALARA. MIP reconstructed images were created and reviewed. CONTRAST: Patient received 113 cc opti 320 of IV contrast COMPARISON: None. FINDINGS: Right common carotid artery: Patent. Right internal carotid artery: Patent. Dense, atherosclerotic plaque without significant stenosis. Right vertebral artery: Patent. Left common carotid artery: Patent. Left internal carotid artery: Patent. High risk, soft atherosclerotic fibrofatty plaque in addition to calcific atherosclerotic plaque, without significant stenosis. Left vertebral artery: Patent. Slight left dominant system. Other: Ulcerative, atherosclerotic plaque of the aortic arch. IMPRESSION: 1. 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 2. No dissection, occlusion, or significant stenosis. CAROTID STENOSIS REFERENCE USING NASCET CRITERIA: % ICA stenosis = (1 - narrowest ICA diameter/diameter of distal cervical ICA) x 100. Mild - <50% stenosis. Moderate - 50-69% stenosis. Severe - 70-94% stenosis. Near occlusion - 95-99% stenosis. Occluded - 100% stenosis. Communications: Call Doctor Stroke Electronically signed by: Marissa Floyd M.D. 02/05/24 19:43 PM
[2024-02-05 19:46] LABS: INR 1.1 (0.9-1.1); Partial Thromboplastin Ratio 1.2; Partial Thromboplastin Time 31 Seconds (21-31)
--- NOTE | 2024-02-05 19:47 | CT Scan Report ---
Exam(s): CTA HEAD With Contrast IV Amt: 113 cc opti 320 EXAM: CT Angiography Head With Intravenous Contrast CLINICAL HISTORY: Reason for exam: neuro deficit, acute stroke suspected. Parox a-fib, taken off Eliquis, found acute right side weakness, improving. TECHNIQUE: Axial computed tomographic angiography images of the head with intravenous contrast. Automated exposure control was utilized for the study. A dose lowering technique was utilized adhering to the principles of ALARA. MIP reconstructed images were created and reviewed. CONTRAST: Patient received 113 cc opti 320 of IV contrast COMPARISON: None. FINDINGS: Right internal carotid artery: Patent. Right anterior cerebral artery: Patent. Right middle cerebral artery: Patent. Right posterior cerebral artery: Patent. Right vertebral artery: Patent. Left internal carotid artery: Patent. Left anterior cerebral artery: Patent. Left middle cerebral artery: Patent. High grade stenosis M2 bifurcation branches. Left posterior cerebral artery: Patent. Left vertebral artery: Patent. Basilar artery: Patent. Other: IMPRESSION: 1. High grade stenosis M2 branches. 2. No aneurysm or large vessel occlusion. 3. d/w Communications: Call Doctor Stroke Electronically signed by: Marissa Floyd M.D. 02/05/24 19:46 PM
[2024-02-05 19:57] LABS: Albumin Globulin Ratio 1.1 (0.9-2); Albumin Level 3.4 gm/dl (3.4-5.0); BUN Creatinine Ratio 12.7 (10-20); Bilirubin,Total 1.3 mg/dl (0.2-1.0); Calcium 8.2 mg/dl (8.6-10.3); Creatinine Clr Calc Pharmacy 55.3 ml/min; Est GFR (African American) 72.6 ml/min; Est GFR (Non-African American) 62.6 ml/min; Globulin 3.1 gm/dl (2.5-4.0); Magnesium 1.6 mg/dl (1.7-2.4); Potassium 3.7 mmol/L (3.5-5.1); Total Protein 6.5 gm/dl (6.0-8.3)
[2024-02-05] MEDS: SODIUM CHLORIDE 0.9% 1,000 ML IV SCH (19:58)
[2024-02-05 20:03] LABS: Troponin I High Sensitivity 6.2 pg/ml (0-20)
[2024-02-05 21:56] LABS: Appearance Urine Clear (Clear); Bacteria Urine Automated None Seen (None Seen); Bilirubin Urine Negative (Negative); Blood Urine 3+ (Negative); Cast Urine Automated 0-2 /lpf (0-2); Color Urine Yellow; Epithelial Cell Urine Auto 0-2 /hpf (0-2); Glucose Urine UA Negative (Negative); Ketones Urine Trace (Negative); Leukocyte Esterase Urine 1+ (Negative); Nitrite Urine Negative (Negative); Protein Urine 1+ (Negative); RBC Urine Automated >20 /hpf (0-2); Specific Gravity Urine > 1.045 (1.000-1.030); Urobilinogen Urine Negative (Negative); WBC Urine Automated 21-50 /hpf (0-5); pH Urine 5.5 (4.5-7.5)
--- NOTE | 2024-02-05 22:09 | XRay Report ---
XR chest 1V portable CLINICAL HISTORY: neuro deficit, acute stroke suspected TECHNIQUE: Single frontal radiograph of the chest was obtained. Comparison: Comparison is made to chest radiograph 07/28/2023 FINDINGS: Exam is limited by patient rotation. The cardiomediastinal silhouette is normal. The lungs are clear. Blunting of the right hemidiaphragm is unchanged from prior exam compatible with scarring versus ext rapleural fat. IMPRESSION: No acute chest disease. ACT 112: Negative or not required by law. Electronically signed by: Parvez Lopez M.D. 02/05/2024 10:08 PM
--- NOTE | 2024-02-06 00:51 | History & Physical Report ---
Date of Service February 06, 2024 Assessment & Plan (1) Stroke-like symptoms: Plan: 83-year-old male with past medical history significant for type 2 diabetes, hyperlipidemia, atrial fibrillation, history of CVA, hypertension, history BPH, history of CAD s/p stent, history of alcohol abuse, comes because of strokelike symptoms. Patient is currently alert and oriented x3. Patient states he lives with his son. As per patient around 5 PM he was trying to go to bathroom when suddenly fell down. He could not get up. He tried to call.States he stayed down for about 1 hour. After1 hour later his son saw him and was brought in here. Per EMS he was also having some slurred speech and some right-sided weakness. By the time he came to ER he is right upper extremity weakness was improving and by time he came from CAT scan his leg left right lower extremity weakness also improving. Stroke alert was called. Evaluated by [facility] stroke neurology . As patient's symptoms are improving and Some mild hematuria from recent TURP and also not exactly well-known time TNK was not given. Advised to check with urology about aspirin and Eliquis. ER notified urology and urology was okay to start aspirin and Eliquis and notify them if any bleeding. Currently patient resting comfortably and hemodynamically stable. Currently states his right upper extremity is back to normal and his right lower extremity close to normal. Patient denies having any slurred speech. Denies any headache. Denies dizziness. No blurred visions or double visions. No earache or runny nose. No sore throat or cough. No fevers. Denies difficulty swallowing. No chest pain or shortness of breath. No nausea. No abdominal pain. Normal bowel and bladder movements. strokelike symptoms with right-sided weakness right upper extremity back to normal and right lower extremity close to normal CTA neck showing high risk atherosclerotic plaque in the aortic arch and left carotid bifurcation CTA head showing high-grade stenosis of M2 branches CT head showing age indeterminate lacunar infarct left posterior putamen patient recently on January 29 had TURP and aspirin and Eliquis are held since prior to surgery his symptoms are improving and and also not exactly well-known time so TNK was not given Urology is okay to restart aspirin and Eliquis will also place him on statin . Workup with MRI scan of the head, echo and will check lipid profile and HbA1c levels speech evaluation and PT evaluation in a.m. neurochecks as per protocol telemetry neurology consult in a.m. 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 on aspirin and Eliquis diabetes hold metformin and Januvia sliding scale we will monitor hypertension hold losartan for now for permissive hypertension will monitor BPH on Flomax s/p TURP follow-up with urology possible UTI starting on Rocephin follow cultures leukopenia and anemia recent labs needs follow-up tickborne studies elevated LFTs follow repeat labs May need imaging studies history of CAD s/p stent remote PCI as per cardiology notes on aspirin starting on statin DVT prophylaxis SCDs and Eliquis disposition telemetry full code History of Present Illness Chief Complaint: strokelike symptoms Primary Care Provider: Duane Aguila MD 83-year-old male with past medical history significant for type 2 diabetes, hyperlipidemia, atrial fibrillation, history of CVA, hypertension, history BPH, history of CAD s/p stent, history of alcohol abuse, comes because of strokelike symptoms. Patient is currently alert and oriented x3. Patient states he lives with his son. As per patient around 5 PM he was trying to go to bathroom when suddenly fell down. He could not get up. He tried to call.States he stayed down for about 1 hour. After1 hour later his son saw him and was brought in here. Per EMS he was also having some slurred speech and some right-sided weakness. By the time he came to ER he is right upper extremity weakness was improving and by time he came from CAT scan his leg left right lower extremity weakness also improving. Stroke alert was called. Evaluated by [place] [facility] stroke neurology . As patient's symptoms are improving and Some mild hematuria from recent TURP and also not exactly well-known time TNK was not given. Advised to check with urology about aspirin and Eliquis. ER notified urology and urology was okay to start aspirin and Eliquis and notify them if any bleeding. Currently patient resting comfortably and hemodynamically stable. Currently states his right upper extremity is back to normal and his right lower extremity close to normal. Patient denies having any slurred speech. Denies any headache. Denies dizziness. No blurred visions or double visions. No earache or runny nose. No sore throat or cough. No fevers. Denies difficulty swallowing. No chest pain or shortness of breath. No nausea. No abdominal pain. Normal bowel and bladder movements. Past medical history. As mentioned above past surgical history. S/p TURP. S/p cardiac stent social history. Quit smoking 2022. Currently no alcohol use. No drug use. Family history. Mother had hypertension. Father had cancer. Allergies Allergy/AdvReac Type Severity Reaction Status Date / Time Sulfa (Sulfonamide Allergy Unknown JAUNDICE Verified 02/05/24 20:39 Antibiotics) Home Medications Medication Instructions Recorded Confirmed Type tamsulosin 0.4 mg capsule 0.4 mg PO HS #30 caps 08/08/23 02/05/24 Rx losartan 50 mg tablet 50 mg PO QAM 09/01/23 02/05/24 History metformin 500 mg tablet 500 mg PO BIDWMEAL 09/01/23 02/05/24 History amiodarone 200 mg tablet 200 mg PO QAM 10/16/23 02/05/24 History apixaban 5 mg tablet (Eliquis) 5 mg PO BID 10/16/23 02/05/24 History aspirin 81 mg capsule 81 mg PO QAM 10/16/23 02/05/24 History docusate sodium 100 mg capsule 100 mg PO Q OTHER DAY PRN 01/12/24 02/05/24 History (Stool Softener) Constipation magnesium oxide 400 mg (241.3 mg 400 mg PO QAM 02/05/24 02/05/24 History magnesium) tablet sitagliptin phosphate 50 mg tablet 50 mg PO QAM 02/05/24 02/05/24 History (Januvia) Past Med/Surg History Problem List (Updated 02/06/24 @ 01:[address] MD) Stroke-like symptoms Acute CVA (cerebrovascular accident) (Acute) Malfunction of Alicea catheter (Acute) Encounter for pre-operative examination BPH NOS w ur obs/LUTS (Acute) HTN (hypertension) with goal to be determined Medical History (Updated 02/06/24 @ 01:[address] MD) Paroxysmal atrial fibrillation Dx'ed 07/28/23 during hospital admission reason for Eliquis, follows w/ [facility] Generalized weakness Indwelling Alicea catheter present Alicea not draining - seen in [facility] 01/24/24- had new alicea placed in ED Hypertension Tachy-maria fernanda syndrome Borderline- avoid AV renetta blocking agents per cardio Ventricular tachycardia Nonsustained VT- on Amiodarone per cardio records HLD (hyperlipidemia) Hx of myocardial infarction 2004 Hx of hepatitis at a "very young age" Poor historian PAT interview done by "friend" - vague on certain details 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, walks with a shuffle, went to [facility] for rehab Alcohol abuse with withdrawal hx -quit 06/2023 DMII (diabetes mellitus, type 2) BPH (benign prostatic hyperplasia) CAD (coronary artery disease) s/p stent 2004 (per cardio records "remote PCI (to unknown vessel)") Surgical History History of cataract surgery bilateral History of heart artery stent x1 stent (2004) History of hip replacement History of cholecystectomy Hx of cardiac catheterization 2004 x 1 stent, following CT; follows w/ [facility] cardio Hx of cystoscopy Family History Mother Hypertension Father Cancer Other No family history of adverse response to anesthesia Social History Smoking Status: Unknown if ever smoked Tobacco Type: Smokeless Tobacco (Dip or Chew) Second Hand Exposure: No; Do You Dip or Chew Tobacco: Yes (chews daily (ex- - "thinks") - advised on policy by nursing); Hx Alcohol Use: No Hx Substance Use: No Preferred Language: Lao Communication Ability: Effective Grocery Stock Clerk Required: No Beliefs That Will Affect Care: None Current Living Situation: Family Current Living Situation Comment: lives w/ son Other Information That Helps Us Care for You: No Feels Safe at Home: Yes Safety Concerns: Feels Safe At This Time Assistive Devices: Denture - Upper and Denture - Lower Assistive Devices Comment: DOES NOT HAVE LOWER DENTURE AT THIS TIME Review of Systems Review of Systems: All systems reviewed & are unremarkable except as noted in HPI & below Physical Exam Physical Exam: General- Not in distress Head- atraumatic Eyes- PERRL, EOMI. ENT- oropharynx clear Neck- supple, no JVD. Lungs- clear to auscultation no wheezing or crackles Heart- regular rhythm; no murmur, no gallop. Abdomen- normal bowel sounds, soft, nontender, no distension Extremities- no pretibial edema, no erythema seen Neuro- alert, oriented x 3; PERRL, EOMI; no facial palsy; no dysarthria; motor 5/5 bilaterally; co ordination of movements normal, no pronator drift, sensations intact, position sense intact. Skin- warm & dry Results & Data Results & Data Vital Signs (Past 12 Hours) Vital Signs Temp Pulse Pulse Resp BP BP Pulse Ox 02/06/24 00:00 51 L 16 124/69 97 02/05/24 23:04 57 L 02/05/24 22:30 64 17 02/05/24 22:08 50 L 17 135/70 95 02/05/24 21:50 51 L 20 124/57 L 95 02/05/24 21:36 49 L 22 142/77 H 93 02/05/24 20:30 16 138/73 96 02/05/24 20:00 51 L 18 136/92 93 02/05/24 20:00 95 02/05/24 19:36 36.8 C 02/05/24 19:30 56 L 14 149/68 H 95 02/05/24 19:18 52 L 19 92 02/05/24 19:15 52 L O2 Del Method 02/06/24 00:00 Room Air 02/05/24 23:04 02/05/24 22:30 02/05/24 22:08 Room Air 02/05/24 21:50 Room Air 02/05/24 21:36 Room Air 02/05/24 20:30 Room Air 02/05/24 20:00 Room Air 02/05/24 20:00 02/05/24 19:36 02/05/24 19:30 Room Air 02/05/24 19:18 Room Air 02/05/24 19:15 Diagnostic Findings Laboratory Results WBC 2.98 K/ul (4.8-10.8) L 02/05/24 19:22 RBC 4.28 M/uL (4.70-6.10) L 02/05/24 19: Hgb 11.5 g/dl (14.0-18.0) L 02/05/24 19: Hct 35.0 % (42.0-52.0) L 02/05/24 19: MCV 81.8 fL (80.0-100.0) 02/05/24 19: MCH 26.9 pg (25.0-34.0) 02/05/24: MCHC 32.9 g/dL (32.0-36.0) 02/05/24: RDW Std Deviation 43.0 fL (36.4-46.3) 02/05/24: RDW Coeff of Dangelo 14.5 % (11.5-14.5) 02/05/24: Plt Count 171 K/uL (130-400) 02/05/24: MPV 9.6 fL (9.4-12.4) 02/05/24 19: Immature Gran % (Auto) 0.3 % 02/05/24 19: Neut % (Auto) 59.8 % 02/05/24 19:22 Lymph % (Auto) 21.5 % 02/05/24 19:22 Camp % (Auto) 14.1 % 02/05/24 19:22 Eos % (Auto) 3.0 % 02/05/24:22 Baso % (Auto) 1.3 % 02/05/24:22 Neut # (Auto) 1.78 K/uL (1.40-6.50) 02/05/24: Lymph # (Auto) 0.64 K/uL (1.20-3.40) L 02/05/24:22 Camp # (Auto) 0.42 K/uL (0.11-0.59) 02/05/24: Eos # (Auto) 0.09 K/uL (0.00-0.50) 02/05/24: Baso # (Auto) 0.04 K/uL (0.00-0.20) 02/05/24: Immature Gran # (Auto) 0.01 K/uL (0.01-0.20) 02/05/24 19:22 PT 12.0 Seconds (9.0-12.0) 02/05/24 19:22 INR 1.1 (0.9-1.1) 02/05/24 19:22 APTT 31 Seconds (21-31) 02/05/24 19:22 PTT Ratio 1.2 02/05/24 19:22 Sodium 136 mmol/L (136-145) 02/05/24 19:22 Potassium 3.7 mmol/L (3.5-5.1) 02/05/24 19:22 Chloride 104 mmol/L (98-107) 02/05/24 19:22 Carbon Dioxide 27 mmol/L (21-32) 02/05/24 19:22 Anion Gap 5 (3-11) 02/05/24 19:22 BUN 14 mg/dl (6-23) 02/05/24 19:22 Creatinine 1.10 mg/dl (0.6-1.4) 02/05/24 19:22 Est Cr Clr Drug Dosing 55.3 ml/min 02/05/24 19:22 Est GFR ( Amer) 72.6 ml/min 02/05/24 19:22 Est GFR (Non-Af Amer) 62.6 ml/min 02/05/24 19:22 BUN/Creatinine Ratio 12.7 (10-20) 02/05/24 19:22 Glucose 162 mg/dl (70-99(Fasting)) H 02/05/24 19:22 POC Glucose 153 mg/dl (70-99) H 02/05/24 19:14 Calcium 8.2 mg/dl (8.6-10.3) L 02/05/24 19:22 Magnesium 1.6 mg/dl (1.7-2.4) L 02/05/24 19:22 Total Bilirubin 1.3 mg/dl (0.2-1.0) H 02/05/24 19:22 AST 16 U/L (13-39) 02/05/24 19:22 ALT 17 U/L (7-52) 02/05/24 19:22 Alkaline Phosphatase 509 U/L (34-104) H 02/05/24 19:22 Troponin I High Sens 6.2 pg/ml (0-20) 02/05/24 19:22 Total Protein 6.5 gm/dl (6.0-8.3) 02/05/24 19:22 Albumin 3.4 gm/dl (3.4-5.0) 02/05/24 19:22 Globulin 3.1 gm/dl (2.5-4.0) 02/05/24 19:22 Albumin/Globulin Ratio 1.1 (0.9-2) 02/05/24 19:22 Urine Color Yellow 02/05/24 21:20 Urine Appearance Clear (Clear) 02/05/24 21:20 Urine pH 5.5 (4.5-7.5) 02/05/24 21:20 Ur Specific [place] > 1.045 (1.000-1.030) H 02/05/24 21:20 Urine Protein 1+ (Negative) H 02/05/24 21:20 Urine Glucose (UA) Negative (Negative) 02/05/24 21:20 Urine Ketones Trace (Negative) H 02/05/24 21:20 Urine Blood 3+ (Negative) H 02/05/24 21:20 Urine Nitrite Negative (Negative) 02/05/24 21:20 Urine Bilirubin Negative (Negative) 02/05/24 21:20 Urine Urobilinogen Negative (Negative) 02/05/24 21:20 Ur Leukocyte Esterase 1+ (Negative) H 02/05/24 21:20 Urine WBC (Auto) 21-50 /hpf (0-5) H 02/05/24 21:20 Urine RBC (Auto) >20 /hpf (0-2) H 02/05/24 21:20 U Hyaline Cast (Auto) 0-2 /lpf (0-2) 02/05/24 21:20 U Epithel Cells (Auto) 0-2 /hpf (0-2) 02/05/24 21:20 Urine Bacteria (Auto) None Seen (None Seen) 02/05/24 21:20 Urine Yeast Present (None Prsent) A 02/05/24 21:20 Blood Type O Positive 02/05/24 19:22 Antibody Screen NEGATIVE 02/05/24 19:22 Impressions Chest X-Ray 02/05/24 18:56 XR chest 1V portable CLINICAL HISTORY: neuro deficit, acute stroke suspected TECHNIQUE: Single frontal radiograph of the chest was obtained. Comparison: Comparison is made to chest radiograph 07/28/2023 FINDINGS: Exam is limited by patient rotation. The cardiomediastinal silhouette is normal. The lungs are clear. Blunting of the right hemidiaphragm is unchanged from prior exam compatible with scarring versus extrapleural fat. IMPRESSION: No acute chest disease. ACT 112: Negative or not required by law. Electronically signed by: Parvez Lopez M.D. 02/05/2024 10:[address] 02/05/24 18:56 CR Exam(s): CT HEAD Without Contrast EXAM: CT Head Without Intravenous Contrast CLINICAL HISTORY: Reason for exam: neuro deficit, acute stroke suspected. TECHNIQUE: Axial computed tomography images of the head/brain without intravenous contrast. Automated exposure control was utilized for the study. A dose lowering technique was utilized adhering to the principles of ALARA. Mild to moderate motion/streak artifact. COMPARISON: None. FINDINGS: Brain: Small lacunar infarct left posterior putamen, age indeterminate. No mass effect or acute , cortical infarct. No acute hemorrhage. Mild atrophy and chronic white matter disease. Ventricles: No hydrocephalus or midline shift. Bones/joints: No acute bony lesion. Soft tissues: No scalp hematoma. Visualized Sinuses: Clear. Mastoid air cells: No mastoid effusion. IMPRESSION: 1. Age indeterminate lacunar infarct left posterior putamen. 2. No acute cortical infarct, bleed, or definite acute intracranial abnormality. Communications: Call Doctor Stroke Electronically signed by: Marissa Floyd M.D. 02/05/24 19:36 PM Head CTA 02/05/24 18:56 CR Exam(s): CTA HEAD With Contrast IV Amt: 113 cc opti 320 EXAM: CT Angiography Head With Intravenous Contrast CLINICAL HISTORY: Reason for exam: neuro deficit, acute stroke suspected. Parox a-fib, taken off Oja.la, found acute right side weakness, improving. TECHNIQUE: Axial computed tomographic angiography images of the head with intravenous contrast. Automated exposure control was utilized for the study. A dose lowering technique was utilized adhering to the principles of ALARA. MIP reconstructed images were created and reviewed. CONTRAST: Patient received 113 cc opti 320 of IV contrast COMPARISON: None. FINDINGS: Right internal carotid artery: Patent. Right anterior cerebral artery: Patent. Right middle cerebral artery: Patent. Right posterior cerebral artery: Patent. Right vertebral artery: Patent. Left internal carotid artery: Patent. Left anterior cerebral artery: Patent. Left middle cerebral artery: Patent. High grade stenosis M2 bifurcation branches. Left posterior cerebral artery: Patent. Left vertebral artery: Patent. Basilar artery: Patent. Other: IMPRESSION: 1. High grade stenosis M2 branches. 2. No aneurysm or large vessel occlusion. 3. d/w DrJennifer Communications: Call Doctor Stroke Electronically signed by: Marissa Floyd M.D. 02/05/24 19:46 PM Neck CTA 02/05/24 18:56 CR Exam(s): CTA NECK With Contrast IV Amt: 113 cc opti 320 EXAM: CT Angiography Neck With Intravenous Contrast CLINICAL HISTORY: Reason for exam: neuro deficit, acute stroke suspected. TECHNIQUE: Routine carotid CT angiography protocol was performed with intravenous contrast. NASCET criteria using the distal ICAs for comparison were used for evaluation of stenoses. Automated exposure control was utilized for the study. A dose lowering technique was utilized adhering to the principles of ALARA. MIP reconstructed images were created and reviewed. CONTRAST: Patient received 113 cc opti 320 of IV contrast COMPARISON: None. FINDINGS: Right common carotid artery: Patent. Right internal carotid artery: Patent. Dense, atherosclerotic plaque without significant stenosis. Right vertebral artery: Patent. Left common carotid artery: Patent. Left internal carotid artery: Patent. High risk, soft atherosclerotic fibrofatty plaque in addition to calcific atherosclerotic plaque, without significant stenosis. Left vertebral artery: Patent. Slight left dominant system. Other: Ulcerative, atherosclerotic plaque of the aortic arch. IMPRESSION: 1. 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 2. No dissection, occlusion, or significant stenosis. CAROTID STENOSIS REFERENCE USING NASCET CRITERIA: % ICA stenosis = (1 - narrowest ICA diameter/diameter of distal cervical ICA) x 100. Mild - <50% stenosis. Moderate - 50-69% stenosis. Severe - 70-94% stenosis. Near occlusion - 95-99% stenosis. Occluded - 100% stenosis. Communications: Call Doctor Stroke Electronically signed by: Marissa Floyd M.D. 02/05/24 19:43 PM ECG Additional Comments: ECG. Sinus bradycardia with sinus arrhythmia at a rate of 50. No significant change was found. Code Status & VTE Plan VTE Prophylaxis Plan VTE Prophylaxis will be ordered: Yes
[2024-02-06] MEDS ORDERED: PHARMACIST DISCHARGE MED REC CONSULT PRN (02:55)
[2024-02-06] MEDS ORDERED: GLUCOSE 10 TAB/TUBE PO PRN (02:55)
[2024-02-06] MEDS ORDERED: GLUCAGON FOR INJ 1 MG VIAL SQ PRN (02:55)
[2024-02-06] MEDS ORDERED: CARBOHYDRATES FOR HYPOGLYCEMIA PO PRN (02:55)
[2024-02-06] MEDS ORDERED: POLYETHYLENE (MIRALAX) 17 GM PACK PO PRN (02:55)
[2024-02-06] MEDS ORDERED: GLUCOSE 40% GEL 15 GM TUBE PO PRN (02:55)
[2024-02-06] MEDS ORDERED: DEXTROSE 50% 50 ML SYRINGE IV PRN (02:55)
[2024-02-06] MEDS ORDERED: NITROGLYCERIN SL 0.4 MG/TAB TAB SL PRN (02:55)
[2024-02-06] MEDS ORDERED: DOCUSATE SODIUM 100 MG CAP PO PRN (02:55)
[2024-02-06] MEDS ORDERED: ACETAMINOPHEN 325 MG TAB PO PRN (02:55)
[2024-02-06] MEDS: cefTRIAXone SODIUM 2,000 MG/50 ML BAG IV STA (03:10)
[2024-02-06] MEDS: SODIUM CHLORIDE 0.9% 1,000 ML IV SCH (03:10)
[2024-02-06] MEDS: MAGNESIUM SULFATE / D5W 1 GM/100 ML BAG IV SCH (03:49)
[2024-02-06 04:03] LABS: Basophils # (auto) 0.04 K/uL (0.00-0.20); Basophils % (auto) 1.4 %; Eosinophils # (auto) 0.11 K/uL (0.00-0.50); Eosinophils % (auto) 3.8 %; Hematocrit (blood only) 33.7 % (42.0-52.0); Hemoglobin 10.8 g/dl (14.0-18.0); Immature Granulocytes # (auto) 0.02 K/uL (0.01-0.20); Immature Granulocytes % (auto) 0.7 %; Lymphocytes # (auto) 0.97 K/uL (1.20-3.40); Lymphocytes % (auto) 33.2 %; Mean Corpuscular Hemoglobin 26.2 pg (25.0-34.0); Mean Corpuscular Volume 81.6 fL (80.0-100.0); Mean Platelet Volume 10.1 fL (9.4-12.4); Monocytes # (auto) 0.51 K/uL (0.11-0.59); Monocytes % (auto) 17.5 %; Neutrophils # (auto) 1.27 K/uL (1.40-6.50); Neutrophils % (auto) 43.4 %; Platelet Count 163 K/uL (130-400); RDW Coefficient of Variation 14.6 % (11.5-14.5); RDW Standard Deviation 42.8 fL (36.4-46.3); Red Blood Count 4.13 M/uL (4.70-6.10); White Blood Count 2.92 K/ul (4.8-10.8)
[2024-02-06 04:15] LABS: Albumin Level 3.2 gm/dl (3.4-5.0); Bilirubin Direct 0.3 mg/dl (0-0.2); Bilirubin,Total 1.1 mg/dl (0.2-1.0); Calcium 8.4 mg/dl (8.6-10.3); Creatinine Clr Calc Pharmacy 60.8 ml/min; Est GFR (African American) 81.4 ml/min; Est GFR (Non-African American) 70.3 ml/min; Potassium 3.8 mmol/L (3.5-5.1); Total Protein 6.3 gm/dl (6.0-8.3)
[2024-02-06 07:04] LABS: Estimated Average Glucose 154 mg/dl
[2024-02-06] MEDS: ATORVASTATIN 40 MG TAB PO SCH (07:29)
[2024-02-06] MEDS: ASPIRIN 81 MG ECTAB PO SCH (07:29)
[2024-02-06] MEDS: APIXABAN 5 MG TABLET PO SCH (07:29)
[2024-02-06] MEDS: MAGNESIUM OXIDE 400 MG TAB PO SCH (07:29)
[2024-02-06] MEDS: AMIODARONE 200 MG TAB PO SCH (07:29)
[2024-02-06] MEDS: INSULIN ASPART PER UNIT CHARGE SC SCH (09:03)
[2024-02-06] MEDS: GADOBUTROL 65ML VIAL IV ONE (11:17)
--- NOTE | 2024-02-06 11:39 | Magnetic Resonance Report ---
MR brain wo/w con CLINICAL HISTORY: cva TECHNIQUE: Multiplanar and multisequence MR images of the brain were obtained prior to and following administration of gadolinium contrast. Comparison: Comparison is made to MRI brain 08/01/2023 and CTA head and neck 02/05/2024 FINDINGS: No abnormal restricted diffusion is identified. Foci of T2 and FLAIR hyperintensity are noted in the paraventricular areas consistent with chronic small vessel ischemic disease. Ex vacuo ventriculomegal y and sulcal enlargement is noted compatible with diffuse volume loss. No mass or abnormal enhancemen t is seen. There is no mass effect or midline shift. There is no evidence of acute intraparenchymal h emorrhage. No extra axial fluid collections are seen. The corpus callosum, pituitary gland, and cereb ellar tonsils appear grossly unremarkable. Flow voids of the major intracranial arterial vessels are identified. Mucous retention cyst is in the left axillary sinus. IMPRESSION: No acute abnormality and in particular no evidence of acute infarct. ACT 112: Negative or not required by law. Electronically signed by: Parvez Lopez M.D. 02/06/2024 11:37 AM
--- NOTE | 2024-02-06 12:32 | Electrocardiogram Report ---
Test Reason : Blood Pressure : / mmHG Vent. Rate : 050 BPM Atrial Rate : 050 BPM P-R Int : 144 ms QRS Dur : 092 ms QT Int : 494 ms P-R-T Axes : 015 024 050 degrees QTc Int : 450 ms Sinus bradycardia with sinus arrhythmia Otherwise normal ECG When compared with ECG of 07-AUG-2023 05:35, No significant change was found Confirmed by Ronni Herrera ([id number]) on 02/06/2024 12:32:07 PM Referred By: REFERRED SELF Confirmed By:Peter Herrera
--- NOTE | 2024-02-06 14:15 | Neurology Consultation ---
Date of Consultation February 06, 2024 Telehealth Consultation Telehealth Information Telehealth Information: I performed this visit using a real-time telehealth connection between my location and the patients location ([facility]). After connecting through interactive tele-video, patient was identified by name and date of and/or wristband check.Patient (or authorized healthcare abrasives sales representative) was informed that this was a telemedicine visit and it was being conducted confidentially over secure lines. My office door was closed and no one else was present in the room with me.Patient (or authorized healthcare abrasives sales representative) provided consent to proceed with the visit, expressed an understanding of privacy and security of the telemedicine visit, and gave permission to have a hospital abrasives sales representative in the room in order to assist with the visit and to conduct portions of the visit, as needed. I informed the patient (or authorized healthcare abrasives sales representative) that I reviewed their record and presented the opportunity for them to ask any questions regarding the visit today. The patient agreed to participate. History of Present Illness Reason for Consultation: TIA/ stroke like symptoms Requesting Physician: Mario Zayas MD Attending Physician: Mario Zayas MD History of Present Illness 83-year-old male patient with PMH of A-fib previously maintained on Eliquis, DM, HTN, BPH, who presented to the emergency room last night with right-sided weakness mostly improved by the time of presentation, the patient was left with some right leg weakness. The patient has had a TURP and he was off of his Eliquis and aspirin for hematuria. He has not restarted it yet. Allergies Allergy/AdvReac Type Severity Reaction Status Date / Time Sulfa (Sulfonamide Allergy Unknown JAUNDICE Verified 02/05/24 20:39 Antibiotics) Home Medications Medication Instructions Recorded Confirmed Type tamsulosin 0.4 mg capsule 0.4 mg PO HS #30 caps 08/08/23 02/05/24 Rx losartan 50 mg tablet 50 mg PO QAM 09/01/23 02/05/24 History metformin 500 mg tablet 500 mg PO BIDWMEAL 09/01/23 02/05/24 History amiodarone 200 mg tablet 200 mg PO QAM 10/16/23 02/05/24 History apixaban 5 mg tablet (Eliquis) 5 mg PO BID 10/16/23 02/05/24 History aspirin 81 mg capsule 81 mg PO QAM 10/16/23 02/05/24 History docusate sodium 100 mg capsule 100 mg PO Q OTHER DAY PRN 01/12/24 02/05/24 History (Stool Softener) Constipation magnesium oxide 400 mg (241.3 mg 400 mg PO QAM 02/05/24 02/05/24 History magnesium) tablet sitagliptin phosphate 50 mg tablet 50 mg PO QAM 02/05/24 02/05/24 History (Januvia) Patient History Medical History (Updated 02/06/24 @ 01:[address] Spicer MD) Paroxysmal atrial fibrillation Dx'ed 07/28/23 during hospital admission reason for Eliquis, follows w/ [facility] Generalized weakness Indwelling Alicea catheter present Alicea not draining - seen in [facility] 01/24/24- had new alicea placed in ED Hypertension Tachy-maria fernanda syndrome Borderline- avoid AV renetta blocking agents per cardio Ventricular tachycardia Nonsustained VT- on Amiodarone per cardio records HLD (hyperlipidemia) Hx of myocardial infarction 2004 Hx of hepatitis at a "very young age" Poor historian PAT interview done by "friend" - vague on certain details 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, walks with a shuffle, went to [facility] for rehab Alcohol abuse with withdrawal hx -quit 06/2023 DMII (diabetes mellitus, type 2) BPH (benign prostatic hyperplasia) CAD (coronary artery disease) s/p stent 2004 (per cardio records "remote PCI (to unknown vessel)") Surgical History History of cataract surgery bilateral History of heart artery stent x1 stent (2004) History of hip replacement History of cholecystectomy Hx of cardiac catheterization 2004 x 1 stent, following [place]; follows w/ [facility] cardio Hx of cystoscopy Family History Mother Hypertension Father Cancer Other No family history of adverse response to anesthesia Social History Smoking Status: Unknown if ever smoked Tobacco Type: Smokeless Tobacco (Dip or Chew) Second Hand Exposure: No; Do You Dip or Chew Tobacco: Yes (chews daily (ex- - "thinks") - advised on policy by nursing); Hx Alcohol Use: No Hx Substance Use: No Preferred Language: Chadian Communication Ability: Effective Ambulance Attendant Required: No Beliefs That Will Affect Care: None Current Living Situation: Family Current Living Situation Comment: lives w/ son Other Information That Helps Us Care for You: No Feels Safe at Home: Yes Safety Concerns: Feels Safe At This Time Assistive Devices: Denture - Upper and Denture - Lower Assistive Devices Comment: DOES NOT HAVE LOWER DENTURE AT THIS TIME Review of Systems Constitutional: Patient denies weight loss, fever, chills, and night sweats Eyes: Patient denies change in vision, tearing, pain, and redness ENT: Patient denies pain, bleeding, rhinorrhea, and dysphagia Cardiovascular: Patient denies chest pain, palpitation, dyspnea at rest, and dyspnea with exertion Respiratory: Patient denies shortness of breath, cough, wheezing, and productive cough GI: Patient denies reflux, pain, constipation, and diarrhea Skin: Patient denies rash, dryness, and itching Allergies/Immune System: Patient denies rhinorrhea, seasonal allergies, reaction to current MEDS, and joint swelling Endocrine: Patient denies weight loss, weight gain, temperature intolerance, and excessive thirst Neurological: All negative unless mentioned in the HPI Physical Exam General Constitutional: Appearance normally developed Head and face: normocephalic and atraumatic Eyes: no ptosis, no anisocoria, and no dysconjugate gaze Respiratory: normal effort Cardiovascular: regular rhythm and regular rate Abdomen: non distended Skin: no rashes, lesions, or ulcers noted Psychiatric: normal judgement and insight, normal mood, and normal affect NEUROLOGIC EXAMINATION: Mental Status:alert, oriented to time, place, person, normal recent memory, nor mal remote memory, normal attention span, normal concentration, normal language and normal fund of knowledge Cranial Nerves: CN 2 - no visual defect on confrontation and pupils round, equal, reactive to light CN 3, 4, 6 - extra-ocular movements intact and no nystagmus CN 5 - facial sensation intact CN 7 - no facial asymmetry CN 8 - intact hearing CN 9, 10 - palate symmetric, normal gag CN 11 - good shoulder shrug CN 12 - tongue midline MOTOR: Strength was at least antigravity throughout, Pronator drift was absent and There were no abnormal movements SENSATION: intact and symmetric to pinprick, light touch, vibration and joint position GAIT: stable, no ataxia and can perform tandem walking COORDINATION: no ataxia with finger to nose testing and heel to estrada testing REFLEXES: cannot assess over telemedicine NIH Stroke Scale: 1a. Level of Consciousness: alert = 0 1b. LOC Questions: (month, age): both correct = 0 1c. LOC Commands (open and close eyes, make fist and let go using non-paretic hand): obeys both correctly = 0 2. Best Gaze (eyes open and patient follows examiner's finger or face): normal = 0 3. Visual (visual threat or finger counting in each quadrant): no loss = 0 4. Facial Palsy (show teeth, raise eye brows and squeeze eyes shut, or grimace symmetry in a comatose patient): normal = 0 5a. Motor Arm (extend arm (palms down) to 90 degrees and score drift/movement (10 seconds) - Left: no drift = 0 5b. Motor Arm: (extend arm (palms down) to 90 degrees and score drift/movement (10 seconds) - Right: no drift = 0 6a. Motor Leg (elevate leg 30 degrees and score drift/ movement (5 seconds) - Left: no drift = 0 6b. Motor Leg (elevate leg 30 degrees and score drift/ movement (5 seconds) - Right: no drift = 0 7. Limb Ataxia (finger to nose, heel down estrada): absent = 0 8. Sensory (pin prick to face, arm, trunk and leg, compare side to side): normal = 0 9. Best Language: no aphasia = 0 10. Dysarthria (evaluate speech clarity by patient repeating listed words): normal articulation = 0 11. Extinction and Inattention: no neglect = 0 Total: 0 Results & Data Vital Signs (Past 12 Hours) Vital Signs Pulse Pulse Resp BP BP Pulse Ox Pulse Ox 02/06/24 07:40 49 L 02/06/24 07:34 55 L 20 150/52 H 97 02/06/24 06:00 49 L 20 124/71 94 02/06/24 05:03 46 L 17 94 02/06/24 04:43 02/06/24 04:30 43 L 18 94 02/06/24 04:03 48 L 21 96 02/06/24 03:45 47 L 17 93 02/06/24 03:09 55 L 16 93 06/11/24 03:00 134/66 02/06/24 03:00 56 L 02/06/24 03:00 02/06/24 02:55 94 02/06/24 02:55 44 L 16 134/66 93 02/06/24 02:51 50 L 12 02/06/24 02:36 51 L 16 O2 Del Method O2 Del Method O2 Flow Rate 02/06/24 07:40 02/06/24 07:34 Nasal Cannula 2 02/06/24 06:00 02/06/24 05:03 02/06/24 04:43 Room Air 02/06/24 04:30 02/06/24 04:03 02/06/24 03:45 02/06/24 03:09 02/06/24 03:00 02/06/24 03:00 02/06/24 03:00 Room Air 02/06/24 02:55 Room Air 02/06/24 02:55 Room Air 02/06/24 02:51 02/06/24 02:36 Laboratory Results Abnormal lab results 02/05/24 02/05/24 02/05/24 Range/Units 19:14 19:22 21:20 WBC 2.98 L (4.8-10.8) K/ul RBC 4.28 L (4.70-6.10) M/uL Hgb 11.5 L (14.0-18.0) g/dl Hct 35.0 L (42.0-52.0) % RDW Coeff of Dangelo (11.5-14.5) % Neut # (Auto) (1.40-6.50) K/uL Lymph # (Auto) 0.64 L (1.20-3.40) K/uL Glucose 162 H (70-99(Fasting)) mg/dl POC Glucose 153 H (70-99) mg/dl Hemoglobin A1c (4.5-5.6) % Calcium 8.2 L (8.6-10.3) mg/dl Magnesium 1.6 L (1.7-2.4) mg/dl Total Bilirubin 1.3 H (0.2-1.0) mg/dl Direct Bilirubin (0-0.2) mg/dl Alkaline Phosphatase 509 H (34-104) U/L Albumin (3.4-5.0) gm/dl Cholesterol/HDL Ratio (0-5) Ur Specific Alvarado > 1.045 H (1.000-1.030) Urine Protein 1+ H (Negative) Urine Ketones Trace H (Negative) Urine Blood 3+ H (Negative) Ur Leukocyte Esterase 1+ H (Negative) Urine WBC (Auto) 21-50 H (0-5) /hpf Urine RBC (Auto) >20 H (0-2) /hpf Urine Yeast Present A (None Prsent) 02/06/24 02/06/24 02/06/24 Range/Units 03:32 08:39 11:46 WBC 2.92 L (4.8-10.8) K/ul RBC 4.13 L (4.70-6.10) M/uL Hgb 10.8 L (14.0-18.0) g/dl Hct 33.7 L (42.0-52.0) % RDW Coeff of Dangelo 14.6 H (11.5-14.5) % Neut # (Auto) 1.27 L (1.40-6.50) K/uL Lymph # (Auto) 0.97 L (1.20-3.40) K/uL Glucose 177 H (70-99(Fasting)) mg/dl POC Glucose 158 H 144 H (70-99) mg/dl Hemoglobin A1c 7.0 H (4.5-5.6) % Calcium 8.4 L (8.6-10.3) mg/dl Magnesium (1.7-2.4) mg/dl Total Bilirubin 1.1 H (0.2-1.0) mg/dl Direct Bilirubin 0.3 H (0-0.2) mg/dl Alkaline Phosphatase 472 H (34-104) U/L Albumin 3.2 L (3.4-5.0) gm/dl Cholesterol/HDL Ratio 7.0 H (0-5) Ur Specific Alvarado (1.000-1.030) Urine Protein (Negative) Urine Ketones (Negative) Urine Blood (Negative) Ur Leukocyte Esterase (Negative) Urine WBC (Auto) (0-5) /hpf Urine RBC (Auto) (0-2) /hpf Urine Yeast (None Prsent) Diagnostic Findings Electronically signed by: Parvez Lopez M.D. 02/05/2024 10:[address] 02/05/24 18:56 CR Exam(s): CT HEAD Without Contrast EXAM: CT Head Without Intravenous Contrast CLINICAL HISTORY: Reason for exam: neuro deficit, acute stroke suspected. TECHNIQUE: Axial computed tomography images of the head/brain without intravenous contrast. Automated exposure control was utilized for the study. A dose lowering technique was utilized adhering to the principles of ALARA. Mild to moderate motion/streak artifact. COMPARISON: None. FINDINGS: Brain: Small lacunar infarct left posterior putamen, age indeterminate. No mass effect or acute , cortical infarct. No acute hemorrhage. Mild atrophy and chronic white matter disease. Ventricles: No hydrocephalus or midline shift. Bones/joints: No acute bony lesion. Soft tissues: No scalp hematoma. Visualized Sinuses: Clear. Mastoid air cells: No mastoid effusion. IMPRESSION: 1. Age indeterminate lacunar infarct left posterior putamen. 2. No acute cortical infarct, bleed, or definite acute intracranial abnormality. Communications: Call Doctor Stroke Electronically signed by: Marissa Floyd M.D. 02/05/24 19:36 PM Head CTA 02/05/24 18:56 CR Exam(s): CTA HEAD With Contrast IV Amt: 113 cc opti 320 EXAM: CT Angiography Head With Intravenous Contrast CLINICAL HISTORY: Reason for exam: neuro deficit, acute stroke suspected. Parox a-fib, taken [facility], found acute right side weakness, improving. TECHNIQUE: Axial computed tomographic angiography images of the head with intravenous contrast. Automated exposure control was utilized for the study. A dose lowering technique was utilized adhering to the principles of ALARA. MIP reconstructed images were created and reviewed. CONTRAST: Patient received 113 cc opti 320 of IV contrast COMPARISON: None. FINDINGS: Right internal carotid artery: Patent. Right anterior cerebral artery: Patent. Right middle cerebral artery: Patent. Right posterior cerebral artery: Patent. Right vertebral artery: Patent. Left internal carotid artery: Patent. Left anterior cerebral artery: Patent. Left middle cerebral artery: Patent. High grade stenosis M2 bifurcation branches. Left posterior cerebral artery: Patent. Left vertebral artery: Patent. Basilar artery: Patent. Other: IMPRESSION: 1. High grade stenosis M2 branches. 2. No aneurysm or large vessel occlusion. 3. d/w DrJennifer Communications: Call Doctor Stroke Electronically signed by: Marissa Floyd M.D. 02/05/24 19:46 PM Neck CTA 02/05/24 18:56 CR Exam(s): CTA NECK With Contrast IV Amt: 113 cc opti 320 EXAM: CT Angiography Neck With Intravenous Contrast CLINICAL HISTORY: Reason for exam: neuro deficit, acute stroke suspected. TECHNIQUE: Routine carotid CT angiography protocol was performed with intravenous contrast. NASCET criteria using the distal ICAs for comparison were used for evaluation of stenoses. Automated exposure control was utilized for the study. A dose lowering technique was utilized adhering to the principles of ALARA. MIP reconstructed images were created and reviewed. CONTRAST: Patient received 113 cc opti 320 of IV contrast COMPARISON: None. FINDINGS: Right common carotid artery: Patent. Right internal carotid artery: Patent. Dense, atherosclerotic plaque without significant stenosis. Right vertebral artery: Patent. Left common carotid artery: Patent. Left internal carotid artery: Patent. High risk, soft atherosclerotic fibrofatty plaque in addition to calcific atherosclerotic plaque, without significant stenosis. Left vertebral artery: Patent. Slight left dominant system. Other: Ulcerative, atherosclerotic plaque of the aortic arch. IMPRESSION: 1. 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 2. No dissection, occlusion, or significant stenosis. CAROTID STENOSIS REFERENCE USING NASCET CRITERIA: % ICA stenosis = (1 - narrowest ICA diameter/diameter of distal cervical ICA) x 100. Mild - <50% stenosis. Moderate - 50-69% stenosis. Severe - 70-94% stenosis. Near occlusion - 95-99% stenosis. Occluded - 100% stenosis. Communications: Call Doctor Stroke Electronically signed by: Marissa Floyd M.D. 02/05/24 19:43 PM Brain MRI 02/06/24 02:55 MR brain wo/w con CLINICAL HISTORY: cva TECHNIQUE: Multiplanar and multisequence MR images of the brain were obtained prior to and following administration of gadolinium contrast. Comparison: Comparison is made to MRI brain 08/01/2023 and CTA head and neck 02/05/2024 FINDINGS: No abnormal restricted diffusion is identified. Foci of T2 and FLAIR hyperintensity are noted in the paraventricular areas consistent with chronic small vessel ischemic disease. Ex vacuo ventriculomegaly and sulcal enlargement is noted compatible with diffuse volume loss. No mass or abnormal enhancement is seen. There is no mass effect or midline shift. There is no evidence of acute intraparenchymal hemorrhage. No extra axial fluid collections are seen. The corpus callosum, pituitary gland, and cerebellar tonsils appear grossly unremarkable. Flow voids of the major intracranial arterial vessels are identified. Mucous retention cyst is in the left axillary sinus. IMPRESSION: No acute abnormality and in particular no evidence of acute infarct. ACT 112: Negative or not required by law. Electronically signed by: Parvez Lopez M.D. 02/06/2024 11:37 AM Medications Administered Home Medications Medication Instructions Recorded Confirmed Last Taken tamsulosin 0.4 mg capsule 0.4 mg PO HS #30 caps 08/08/23 02/05/24 01/29/24 21:00 losartan 50 mg tablet 50 mg PO QAM 09/01/23 02/05/24 01/29/24 07:00 metformin 500 mg tablet 500 mg PO BIDWMEAL 09/01/23 02/05/24 01/29/24 18:00 amiodarone 200 mg tablet 200 mg PO QAM 10/16/23 02/05/24 01/29/24 07:00 apixaban 5 mg tablet (Eliquis) 5 mg PO BID 10/16/23 02/05/24 01/27/24 18:00 aspirin 81 mg capsule 81 mg PO QAM 10/16/23 02/05/24 01/30/24 07:00 docusate sodium 100 mg capsule 100 mg PO Q OTHER DAY PRN 01/12/24 02/05/24 Unknown (Stool Softener) Constipation magnesium oxide 400 mg (241.3 mg 400 mg PO QAM 02/05/24 02/05/24 Unknown magnesium) tablet sitagliptin phosphate 50 mg tablet 50 mg PO QAM 02/05/24 02/05/24 Unknown (Januvia) Active Medications Generic Name Dose Route Start Last Admin Trade Name Freq PRN Reason Stop Dose Admin Amiodarone HCl 200 mg 02/06/24 09:00 02/06/24 07:29 Amiodarone 200 Mg Tab PO 03/07/24 08:59 200 mg QAM [place] Administration Apixaban 5 mg 02/06/24 09:00 02/06/24 07:29 Apixaban 5 Mg Tablet PO 03/07/24 08:59 5 mg BID [place] Administration Aspirin 81 mg 02/06/24 09:00 02/06/24 07:29 Aspirin 81 Mg Ectab PO 03/07/24 08:59 81 mg QAM [place] Administration Atorvastatin Calcium 40 mg 02/06/24 09:00 02/06/24 07:29 Atorvastatin 40 Mg Tab PO 03/07/24 08:59 40 mg QAM [place] Administration Sodium Chloride 1,000 mls @ 50 mls/hr 02/06/24 02:55 02/06/24 03:10 Nss IV 02/06/24 22:54 50 mls/hr .Q20H [place] Administration Insulin Aspart 0 units 02/06/24 07:30 02/06/24 14:15 Insulin Aspart Per Unit Charge SC 03/07/24 07:29 2 units ACHS [place] Administration Magnesium Oxide 400 mg 02/06/24 09:00 02/06/24 07:29 Magnesium Oxide 400 Mg Tab PO 03/07/24 08:59 400 mg QAM [place] Administration
--- NOTE | 2024-02-06 17:13 | Ultrasound Report ---
US liver CLINICAL HISTORY: elevated liver enzymes TECHNIQUE: Multiple real-time sonographic images of the right upper quadrant were obtained. Comparison: Comparison is made to CT abdomen pelvis 07/28/2023 FINDINGS: The liver is diffusely echogenic in appearance with poor ultrasound penetration, with normal contour, which is consistent with fatty infiltration. No focal mass lesions are seen. No intrahepatic duct al dilatation is seen. Patient is status post cholecystectomy. The common duct measures 0.6 cm in di ameter at the level of the hepatic artery. The visualized portions of the pancreas appear normal. The right kidney shows normal echogenicity, cortical thickness and renal contour. The right kidney sh ows no evidence of hydronephrosis or mass. No ascites or free fluid is seen in Hinojosa's pouch. IMPRESSION: Hepatic steatosis. No acute abnormalities. ACT 112: Negative or not required by law. Electronically signed by: Parvez Lopez M.D. 02/06/2024 5:11 PM
--- NOTE | 2024-02-06 17:22 | Communication Note ---
Date of Service: February 06, 2024 Patient seen and examined at bedside. He is lying on the bed comfortably; not in distress He denies any weakness or numbness of any body parts Vital signs stable ny acute findings On physical examination; Constitutional: Alert oriented x 3; not in distress. Respiratory: normal respiratory effort, lungs clear to auscultation, no wheeze, rales, rhonchi. Normal insp/exp effort, no accessory muscle use Cardiovascular: RRR, no murmur, no edema Vessels: no JVD or carotid bruit Chest: normal inspection of chest Abdomen: normal bowel sounds, soft, nontender, no hepatosplenomegaly Musculoskeletal: no cyanosis or clubbing, extremities motor strength 5/5 Skin: no rashes, warm and dry normal turgor Neurologic: PERRL, EOMI, accommodation nl, no face palsy, no dysarthria CN's II- XI intact bilaterally and moves all extremities Psychiatric: A+Ox3, euthymic affect Assessment/plan Transient ischemic attack Stroke ruled out Patient presented with strokelike symptoms with weakness on his right arm which improved spontaneously CT head without contrast did not show any acute finding MRI brain rule out stroke Discussed with neurology; patient restarted back on Eliquis and aspirin Also on Lipitor 40 mg once a day PT OT and HOT DOG VENDOR eval On empiric antibiotic for possible UTI. Follow-up on urine culture Full progress note to follow tomorrow
[2024-02-06] MEDS: TAMSULOSIN HCL 0.4 MG CAP PO SCH (20:41)
[2024-02-07] MEDS: cefTRIAXone SODIUM 2,000 MG/50 ML BAG IV SCH (04:53)
[2024-02-07 05:41] LABS: Basophils # (auto) 0.04 K/uL (0.00-0.20); Basophils % (auto) 1.4 %; Eosinophils # (auto) 0.12 K/uL (0.00-0.50); Eosinophils % (auto) 4.1 %; Hematocrit (blood only) 34.3 % (42.0-52.0); Immature Granulocytes # (auto) 0.01 K/uL (0.01-0.20); Immature Granulocytes % (auto) 0.3 %; Lymphocytes # (auto) 1.17 K/uL (1.20-3.40); Lymphocytes % (auto) 40.3 %; Mean Corpuscular Hemoglobin 26.4 pg (25.0-34.0); Mean Corpuscular Hgb Conc 32.1 g/dL (32.0-36.0); Mean Corpuscular Volume 82.3 fL (80.0-100.0); Mean Platelet Volume 9.8 fL (9.4-12.4); Monocytes # (auto) 0.51 K/uL (0.11-0.59); Monocytes % (auto) 17.6 %; Neutrophils # (auto) 1.05 K/uL (1.40-6.50); Neutrophils % (auto) 36.3 %; Platelet Count 167 K/uL (130-400); RDW Coefficient of Variation 14.6 % (11.5-14.5); RDW Standard Deviation 43.9 fL (36.4-46.3); Red Blood Count 4.17 M/uL (4.70-6.10)
[2024-02-07 05:57] LABS: Albumin Globulin Ratio 1.2 (0.9-2); Albumin Level 3.5 gm/dl (3.4-5.0); BUN Creatinine Ratio 11.8 (10-20); Bilirubin,Total 1.2 mg/dl (0.2-1.0); Calcium 8.3 mg/dl (8.6-10.3); Creatinine Clr Calc Pharmacy 51.1 ml/min; Est GFR (Non-African American) 56.9 ml/min; Potassium 3.9 mmol/L (3.5-5.1); Total Protein 6.5 gm/dl (6.0-8.3)
[2024-02-07 06:59] LABS: Magnesium 1.9 mg/dl (1.7-2.4)
--- NOTE | 2024-02-07 09:02 | Pharmacy Report ---
- Date of Service February 07, 2024 - Pharmacy CVA/TIA Medication Review Medications to Prevent Stroke handout has been added to the patients discharge packet. Antiplatelet(s) * aspirin 81mg PO daily Cholesterol * High intensity statin: atorvastatin 40 mg daily DVT Prophylaxis * SCD thigh Therapeutic Anticoagulation * Hx Afib/Aflutter noted, and patient is currently receiving apixaban Type 2 Diabetes * Patient has T2DM and not on a diabetes medication with proven CVD benefit. Hospitalist notified and will evaluate.
--- NOTE | 2024-02-07 10:49 | Discharge Summary ---
Discharge Summary Date of Service February 07, 2024 Principal Dx & Hospital Course #1 = Principal Diagnosis (1) TIA (transient ischemic attack): (2) DMII (diabetes mellitus, type 2): Notes For Next Care Provider Consider adding medication such as Jardiance for management of his diabetes, vascular disease and secondary stroke prevention Medication Changes From Visit Lipitor added for secondary stroke prevention Admission HPI Per Admitting Provider 83-year-old male with past medical history significant for type 2 diabetes, hyperlipidemia, atrial fibrillation, history of CVA, hypertension, history BPH, history of CAD s/p stent, history of alcohol abuse, comes because of strokelike symptoms. Patient is currently alert and oriented x3. Patient states he lives with his son. As per patient around 5 PM he was trying to go to bathroom when suddenly fell down. He could not get up. He tried to call.States he stayed down for about 1 hour. After1 hour later his son saw him and was brought in here. Per EMS he was also having some slurred speech and some right-sided weakness. By the time he came to ER he is right upper extremity weakness was improving and by time he came from CAT scan his leg left right lower extremity weakness also improving. Stroke alert was called. Evaluated by [facility] stroke neurology . As patient's symptoms are improving and Some mild hematuria from recent TURP and also not exactly well-known time TNK was not given. Advised to check with urology about aspirin and Eliquis. ER notified urology and urology was okay to start aspirin and Eliquis and notify them if any bleeding. Currently patient resting comfortably and hemodynamically stable. Currently st ates his right upper extremity is back to normal and his right lower extremity close to normal. Patient denies having any slurred speech. Denies any headache. Denies dizziness. No blurred visions or double visions. No earache or runny nose. No sore throat or cough. No fevers. Denies difficulty swallowing. No chest pain or shortness of breath. No nausea. No abdominal pain. Normal bowel and bladder movements. Discharge Exam Constitutional: Patient awake and alert HEENT: Sclera clear Pulmonary: Lungs clear to auscultation CV: S1-S2, regular Abdomen: Soft Neuro: Alert and oriented, no focal deficit, NIH stroke scale equals 0 Updated Medication List Medication Instructions Recorded Confirmed Type tamsulosin 0.4 mg capsule 0.4 mg PO HS #30 caps 08/08/23 02/05/24 Rx losartan 50 mg tablet 50 mg PO QAM 09/01/23 02/05/24 History metformin 500 mg tablet 500 mg PO BIDWMEAL 09/01/23 02/05/24 History amiodarone 200 mg tablet 200 mg PO QAM 10/16/23 02/05/24 History apixaban 5 mg tablet (Eliquis) 5 mg PO BID 10/16/23 02/05/24 History aspirin 81 mg capsule 81 mg PO QAM 10/16/23 02/05/24 History docusate sodium 100 mg capsule 100 mg PO Q OTHER DAY PRN 01/12/24 02/05/24 History (Stool Softener) Constipation magnesium oxide 400 mg (241.3 mg 400 mg PO QAM 02/05/24 02/05/24 History magnesium) tablet sitagliptin phosphate 50 mg tablet 50 mg PO QAM 02/05/24 02/05/24 History (Januvia) atorvastatin 40 mg tablet 40 mg PO QAM #30 tabs 02/07/24 Rx Hospital Stay Data Consultations 02/05/24 20:18 ED Decision to Admit Stat Diagnostic Imagining Performed 02/05/24 18:56 CT angio head w con Stat CT angio neck with con Stat CT head/brain wo con Stat 02/06/24 02:55 MR brain wo/w con Urgent 02/06/24 08:30 US liver Routine Pending Results Patient Have Any Pending Studies at Discharge: No Discharge Instructions Given to Patient (Per Discharging Provider) Discussed with your PCP additional treatments for diabetes Total Time Total Time Spent Total Time Spent (In Minutes): 33 minutes
[2024-02-07] MEDS: STROKE PATIENT DISCHARGE STA (13:42)
[2024-02-09 04:43] LABS: Babesia microti DNA Not Detected (Not Detected)
--- NOTE | 2024-02-09 11:12 | Pharmacy Report ---
Pharmacist Stroke Counseling - Date of Service February 09, 2024 - Scope: Pharmacy has been consulted to provide medication discharge counseling for this patient admitted with [ischemic stroke] [hemorrhagic stroke] [transient ischemic attack] as per the Pharmacist Discharge Counseling for Stroke Patients Nelson cook - Medications on Discharge: Home Medications Medication Instructions Recorded Confirmed losartan 50 mg tablet 50 mg PO QAM 09/01/23 02/05/24 metformin 500 mg tablet 500 mg PO BIDWMEAL 09/01/23 02/05/24 amiodarone 200 mg tablet 200 mg PO QAM 10/16/23 02/05/24 apixaban 5 mg tablet (Eliquis) 5 mg PO BID 10/16/23 02/05/24 aspirin 81 mg capsule 81 mg PO QAM 10/16/23 02/05/24 docusate sodium 100 mg capsule 100 mg PO Q OTHER DAY PRN 01/12/24 02/05/24 (Stool Softener) Constipation magnesium oxide 400 mg (241.3 mg 400 mg PO QAM 02/05/24 02/05/24 magnesium) tablet sitagliptin phosphate 50 mg tablet 50 mg PO QAM 02/05/24 02/05/24 (Januvia) New Rx's Medication Instructions Recorded tamsulosin 0.4 mg capsule 0.4 mg PO HS #30 caps 08/08/23 atorvastatin 40 mg tablet 40 mg PO QAM #30 tabs 02/07/24 - Action: The above medications, specifically ones for stroke treatment/prophylaxis, have been reviewed in detail with the patient and/or patient used equipment sales representative(s) prior to discharge. This includes indication, common adverse reactions, drug interactions, and medication administration. Medication counseling has been employed using the teach-back method to ensure understanding. - Outcome: Additional comments: Spoke with Alexsander zaina AM about his medication changes, states that his son usually takes care of his medications, but he did think that he just started a new medication. He is not sure when his son will return to discuss. Reviewed side effects to watch out for with atorvastatin. Asked if he had a PCP appointment set up, he stated he believed that he did. Answered all questions. Thank you for allowing pharmacy to be involved in the care of this patient. Please call [phone] with any additional questions
== END 2024-02-07 12:50 | disposition home or self-care (01) | DRG 69 ==
LOC: ED 18:56 → SUATTDRO 02-06 00:43 → EDINP 02-06 00:43 → 2E 02-06 19:08